=== PATIENT | male | born 1970 | race Caucasian/White ===

== ENCOUNTER 2020-09-08 19:56 | Inpatient (IN) ==
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
[2020-09-08] MEDS ORDERED: 0.9 % SODIUM CHLORIDE 1,000 ML IV ONE (20:33)
[2020-09-08] MEDS ORDERED: VANCOMYCIN 1,000 MG in 0.9 % SODIUM CHLORIDE 250 ML IV ONE (20:33)
[2020-09-08] MEDS ORDERED: cefTRIAXone 2 GM in DEXTROSE 5% IN WATER 50 ML IV ONE (21:03)
[2020-09-08 21:24] LABS: POC Creatinine 0.6 mg/dL (0.6-1.2)
[2020-09-08 22:00] LABS: Basophils # (Auto) 0.04 K/mcL (0.00-0.20); Basophils % (Auto) 0.3 % (0.0-2.0); Eosinophils # (Auto) 0.05 K/mcL (0.00-0.70); Eosinophils % (Auto) 0.4 % (0.0-7.0); Hematocrit 39.1 % (41.0-55.0); Hemoglobin 12.7 g/dL (13.5-16.5); Lymphocytes # (Auto) 1.77 K/mcL (1.50-4.80); Lymphocytes % (Auto) 12.4 % (15.0-49.0); Mean Cell Volume 93.8 fL (80.0-100.0); Mean Corpuscular HGB Conc 32.5 g/dL (31.0-36.0); Mean Platelet Volume 9.6 fL (7.4-10.4); Monocytes # (Auto) 0.77 K/mcL (0.10-0.90); Monocytes % (Auto) 5.4 % (1.0-12.0); Neutrophils % (Auto) 81.5 % (38.0-78.0); Platelet Count 292 K/mcL (140-440); RBC 4.17 M/mcL (4.50-5.90); Red Cell Distribution Width 15.2 % (11.5-14.5); WBC 14.3 K/mcL (4.5-11.0)
[2020-09-08 22:23] LABS: ALT/SGPT 17 U/L (<40); AST/SGOT 16 U/L (<40); Albumin 2.8 gm/dL (3.2-5.2); Albumin/Globulin Ratio 0.6 (1.0-2.3); Alkaline Phosphatase 162 U/L (39-117); Bilirubin,Total < 0.2 mg/dL (0.1-1.0); Blood Urea Nitrogen 15 mg/dL (6-20); Calcium 8.7 mg/dL (8.6-10.4); Carbon Dioxide 23 mmol/L (22-30); Chloride 99 mmol/L (96-108); Globulin 4.5 gm/dL (2.2-3.7); Glomerular Filtration Rate 110; Glucose 157 mg/dL (70-105)
[2020-09-08] MEDS ORDERED: ONDANSETRON 4 MG/2 ML VIAL IV PRN (22:51)
[2020-09-08] MEDS ORDERED: OXYBUTYNIN CHLORIDE 5 MG TABLET PO ONE (23:06)
[2020-09-08] MEDS ORDERED: BACLOFEN 10 MG TABLET PO ONE (23:06)
[2020-09-08] MEDS ORDERED: tiZANidine 4 MG TABLET PO ONE (23:07)
[2020-09-09] MEDS: 0.9 % SODIUM CHLORIDE 1,000 ML IV SCH ×2 (00:45→08:55)
[2020-09-09] MEDS: morphine 4 MG/ML VIAL IV PRN ×2 (04:09→08:56)
[2020-09-09] MEDS: 0.9 % SODIUM CHLORIDE 10 ML SYRINGE IV SCH ×5 (04:52→22:37)
--- NOTE | 2020-09-09 05:49 | Cat Scan Report ---
INDICATION: right gluteal and perineal abscess. Previous left nephrectomy in July, COMPARISON: Preoperative CT scan dated 06/16/2020 TECHNIQUE: Axial images were obtained through the abdomen and pelvis. Sagittally and coronally reformatted images. FINDINGS: Lung bases:There is dependent parenchymal density consistent with atelectasis. No discrete mass. No pleural fluid. No pericardial fluid. Liver:Negative to the limits of noncontrast enhanced examination. Liver contour is smooth without evidence for cirrhosis Gallbladder, bilary:No calcified gallstones. No gallbladder wall thickening. No pericholecystic fluid. No dilated bile ducts Spleen:Spleen is borderline enlarged. Spleen measures approximately 12 cm x 10 cm x 13 cm. Pancreas:No pancreatic mass. No peripancreatic abnormality Adrenal glands:Negative Kidneys, ureters, bladder: Previous left nephrectomy. There is no mass or abscess in the surgical bed. Right kidney is negative for limits of noncontrast enhanced examination. No hydronephrosis. No detectable mass. No obstructing or nonobstructing calculi No hydroureter. No ureteral stone There is a Car catheter within the urinary bladder. Bladder wall appears thickened. There is gas within the nondependent portion of the bladder. Blood clot within the bladder or purulent material is possible. Clinical correlation necessary. Gastrointestinal:No significant diverticulosis or evidence for diverticulitis. No detectable colonic mass. There is prominent fecal material within the colon consistent with constipation. No mechanical small bowel obstruction. No small bowel dilatation. Appendix: The appendix is negative Vascular:Mild calcification of the abdominal aorta. No abdominal aortic aneurysm. Lymphatic:No retroperitoneal adenopathy. No significant mesenteric adenopathy. Mesentery, peritoneum:No free intraperitoneal fluid. No intra-abdominal abscess. No pneumoperitoneum Reproductive:Prostate is not significantly enlarged Musculoskeletal:No lumbar compression fractures. No lytic lesions. Sacrum, pelvis, hips are negative. Patient has undergone previous open reduction and internal fixation of right hip fracture. No anterior abdominal wall or inguinal hernia There is soft tissue abnormality in the right gluteal region extending to the perineum. There is density in the subcutaneous fat. No gas bubbles to suggest Bonnie's gangrene. Appearance is consistent with probable phlegmon. There are no gas bubbles or well-defined low density to indicate mature abscess. This extends deep to the issue him. There is no evidence for osteomyelitis. This examination was initially interpreted by [facility] IMPRESSION: 1. Previous left nephrectomy 2. Car catheter within the urinary bladder. There are gas bubbles within appearance suggesting intravesical hematoma or purulence 3. Probable constipation 4. Subcutaneous soft tissue abnormality in the right gluteal region extending to the perineum. Findings are most consistent with phlegmon or maturing abscess. No well delineated abscess. No gas bubbles. The exam was performed using radiation dose optimization techniques including, but not limited to, automated exposure control, adjustment of the mA and/or kV according to patient size and use of iterative reconstruction technique. Interpreted and Authenticated by: Jesus Espinal 09/09/20
[2020-09-09] MEDS ORDERED: VANCOMYCIN PER PHARMACY IV SCH (07:06)
[2020-09-09] MEDS: VANCOMYCIN 1,500 MG in 0.9 % SODIUM CHLORIDE 500 ML IV SCH ×2 (08:55→22:08)
[2020-09-09] MEDS ORDERED: DOCUSATE SODIUM 100 MG CAPSULE PO SCH (09:00)
[2020-09-09] MEDS ORDERED: ONDANSETRON 4 MG/2 ML VIAL IV PRN (10:01)
[2020-09-09] MEDS ORDERED: morphine 4 MG/ML VIAL IV PRN (10:01)
[2020-09-09] MEDS ORDERED: 0.9 % SODIUM CHLORIDE 1,000 ML IV SCH (10:15)
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
[2020-09-09] MEDS ORDERED: HYDROmorphone 1 MG/ML SYRINGE IV PRN (10:59)
[2020-09-09] MEDS: cefTRIAXone 2 GM in DEXTROSE 5% IN WATER 50 ML IV SCH (13:00)
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
[2020-09-09] MEDS ORDERED: tiZANidine 4 MG TABLET PO SCH ×2 (15:00)
[2020-09-09] MEDS ORDERED: oxyCODONE/APAP 10/325MG TABLET PO PRN (16:16)
[2020-09-09] MEDS ORDERED: NALOXONE HCL 0.4 MG/ML VIAL IV PRN (16:17)
[2020-09-09] MEDS ORDERED: LACTULOSE 20 GM/30 ML ORAL.SOL PO PRN (16:19)
--- NOTE | 2020-09-09 16:36 | General Surgery Consult Note ---
HPI Data of Consult Primary Care Provider: Louis Wong Family Provider: Patient seen as 50-year-old quadriplegic with history of ureteral cancer and impacted stent status post left nephro ureterectomy approximately 2 months ago and pulmonary Patient now having evaluation for gluteal abscess and CT demonstrates abnormal cystogram with air noted along with marked bladder wall thickening and neurogenic bladder Consult Narrative Patient Information: Note initiated : 09/09/20 at 4:26 pm Service Date, if different from initiated Date: [] Patient: Zack Cardenas 50 y/o M admitted on 09/08/20 for buttock wound. Chief Complaint: [] Chief complaint: History of ureteral cancer Reason for consult: Abnormal findings on CT cystogram cc:: CC: Zack Machado MD Constitutional Constitutional: Present as per HPI PFSH PFSH All Active Problems (Updated 09/09/20 @ 16:31 by Shakeel Owusu MD) H/O left radical nephrectomy (Acute) Bladder mass (Acute) Transitional cell carcinoma of left ureter (Acute) Neurogenic dysfunction of the urinary bladder (Acute) Quadriplegia and quadriparesis (Acute) Occlusion of ureteral stent (Acute) Dysuria (Acute) Cellulitis (Acute) Decubitus ulcer of ankle, stage 3 (Acute) Abscess and cellulitis of gluteal region (Acute) Medical History (Updated 09/09/20 @ 16:31 by Shakeel Owusu MD) Bladder mass Transitional cell carcinoma of left ureter Surgical History (Updated 09/09/20 @ 16:32 by Shakeel Owusu MD) H/O left radical nephrectomy MEDS/ALLERGIES Home Medications and Allergies Home Medications Medication Instructions Recorded Confirmed Type baclofen 20 mg PO TID 09/22/18 09/09/20 History duloxetine [Cymbalta] 60 mg PO DAILY 09/22/18 09/09/20 History methadone 30 mg PO TID 09/22/18 09/09/20 History oxybutynin chloride 10 mg PO BID 09/22/18 09/09/20 History tizanidine [Zanaflex] 16 mg PO TID 09/22/18 09/09/20 History cefdinir 300 mg PO BID #10 cap 06/10/20 09/09/20 Rx sulfamethoxazole-trimethoprim 1 tab PO BID #10 tab 09/07/20 09/09/20 Rx [Bactrim DS] methadone 50 mg PO HS 09/09/20 09/09/20 History oxycodone-acetaminophen [Percocet] 1 - 1.5 tab PO QID 09/09/20 09/09/20 History oxycodone-acetaminophen [Percocet] 1 tab PO DAILYP PRN 09/09/20 09/09/20 History Allergies Allergy/AdvReac Type Severity Reaction Status Date / Time No Known Drug Allergies Allergy Verified 09/08/20 19:59 Physical Examination Vital Signs Vital signs: Temp Pulse Resp BP Pulse Ox 97.5 F 65 16 164/98 90 09/09/20 12:00 09/09/20 12:00 09/09/20 12:00 09/09/20 12:00 09/09/20 12:00 Genitourinary Genitourinary (Male): Present other (Car catheter in place with old SP tube site) Neurologic Neurologic: Present other (Quadriplegic male in no acute distress-asensate below umbilicus) Results Labs Result diagrams: 09/08/20 20:56 09/08/20 20:56 Labs: Abnormal lab results 09/08/20 09/08/20 Range/Units 20:56 20:56 WBC 14.3 H (4.5-11.0) K/mcL RBC 4.17 L (4.50-5.90) M/mcL Hgb 12.7 L (13.5-16.5) g/dL Hct 39.1 L (41.0-55.0) % RDW 15.2 H (11.5-14.5) % Neut % (Auto) 81.5 H (38.0-78.0) % Lymph % (Auto) 12.4 L (15.0-49.0) % Absolute Neutrophils 11.64 H (1.80-8.00) K/mcL Glucose 157 H (70-105) mg/dL Alkaline Phosphatase 162 H (39-117) U/L Albumin 2.8 L (3.2-5.2) gm/dL Globulin 4.5 H (2.2-3.7) gm/dL Albumin/Globulin Ratio 0.6 L (1.0-2.3) Diabetes panel 09/08/20 Range/Units 20:56 Sodium 136 (133-145) mmol/L Potassium 4.3 (3.3-5.1) mmol/L Chloride 99 (96-108) mmol/L Carbon Dioxide 23 (22-30) mmol/L BUN 15 (6-20) mg/dL Creatinine 0.7 (0.7-1.2) mg/dL Glucose 157 H (70-105) mg/dL Calcium 8.7 (8.6-10.4) mg/dL AST 16 (<40) U/L ALT 17 (<40) U/L Alkaline Phosphatase 162 H (39-117) U/L Total Protein 7.3 (5.9-8.4) gm/dL Albumin 2.8 L (3.2-5.2) gm/dL Calcium panel 09/08/20 Range/Units 20:56 Calcium 8.7 (8.6-10.4) mg/dL Albumin 2.8 L (3.2-5.2) gm/dL Pituitary panel 09/08/20 Range/Units 20:56 Sodium 136 (133-145) mmol/L Potassium 4.3 (3.3-5.1) mmol/L Chloride 99 (96-108) mmol/L Carbon Dioxide 23 (22-30) mmol/L BUN 15 (6-20) mg/dL Creatinine 0.7 (0.7-1.2) mg/dL Glucose 157 H (70-105) mg/dL Calcium 8.7 (8.6-10.4) mg/dL Adrenal panel 09/08/20 Range/Units 20:56 Sodium 136 (133-145) mmol/L Potassium 4.3 (3.3-5.1) mmol/L Chloride 99 (96-108) mmol/L Carbon Dioxide 23 (22-30) mmol/L BUN 15 (6-20) mg/dL Creatinine 0.7 (0.7-1.2) mg/dL Glucose 157 H (70-105) mg/dL Calcium 8.7 (8.6-10.4) mg/dL Total Bilirubin < 0.2 (0.1-1.0) mg/dL AST 16 (<40) U/L ALT 17 (<40) U/L Alkaline Phosphatase 162 H (39-117) U/L Total Protein 7.3 (5.9-8.4) gm/dL Albumin 2.8 L (3.2-5.2) gm/dL All other labs normal. A/P Assessment and plan (1) Neurogenic dysfunction of the urinary bladder: Status: Acute (2) Bladder mass: Status: Acute (3) Transitional cell carcinoma of left ureter: Status: Acute (4) Quadriplegia and quadriparesis: Status: Acute (5) H/O left radical nephrectomy: Status: Acute Narrative A/P Narrative: Assessment: History of ureteral transitional cell carcinoma by report and after recent nephroureterectomy elsewhere. Patient with abnormal cystogram questionably debris versus clot/tumor versus neurogenic bladder with intraluminal air noted Rule out transitional cell carcinoma versus other etiology--urine cytology submitted and pending--urine does not appear with obvious infection presently Gluteal abscess requiring excision tomorrow in the OR Plan: After discussion with Dr. Wong will plan combined procedure to have cystoscopy possible biopsy performed along with gluteal abscess excision tomorrow Patient understands and agrees Time Spent With Patient Time: Total time spent is greater than 50% in coordination of care (as documented) at patient's floor/unit and/or counseling patient:
[2020-09-09] MEDS: BACLOFEN 10 MG TABLET PO SCH ×2 (16:41→22:14)
[2020-09-09] MEDS: HYDROmorphone 1 MG/ML SYRINGE IV PRN (16:43)
[2020-09-09] MEDS: METHADONE 5 MG TABLET PO SCH ×2 (17:53→22:10)
[2020-09-09] MEDS: tiZANidine 4 MG TABLET PO SCH ×2 (17:54→22:13)
[2020-09-09] MEDS ORDERED: SENNOSIDES 1 TABLET PO SCH ×2 (21:00)
[2020-09-09] MEDS: OXYBUTYNIN CHLORIDE 5 MG TAB.XL.24H PO SCH (22:13)
[2020-09-09] MEDS: DOCUSATE SODIUM 100 MG CAPSULE PO SCH (22:13)
[2020-09-10] MEDS: 0.9 % SODIUM CHLORIDE 10 ML SYRINGE IV SCH ×6 (04:13→22:51)
[2020-09-10] MEDS: HYDROmorphone 1 MG/ML SYRINGE IV PRN ×4 (04:20→21:29)
[2020-09-10 06:50] LABS: ALT/SGPT 14 U/L (<40); AST/SGOT 18 U/L (<40); Albumin 2.4 gm/dL (3.2-5.2); Albumin/Globulin Ratio 0.5 (1.0-2.3); Alkaline Phosphatase 152 U/L (39-117); Bilirubin,Direct < 0.2 mg/dL (0-0.3); Bilirubin,Total 0.2 mg/dL (0.1-1.0); Blood Urea Nitrogen 8 mg/dL (6-20); Calcium 9.2 mg/dL (8.6-10.4); Carbon Dioxide 27 mmol/L (22-30); Chloride 106 mmol/L (96-108); Globulin 4.8 gm/dL (2.2-3.7); Glomerular Filtration Rate 117; Glucose 83 mg/dL (70-105); Lactate Dehydrogenase 163 U/L (135-225); Phosphorous 3.1 mg/dL (2.5-4.5); Triglycerides 173 mg/dL (<150); Uric Acid 4.3 mg/dL (2.5-8.0)
[2020-09-10 07:26] LABS: Basophils # (Auto) 0.04 K/mcL (0.00-0.20); Basophils % (Auto) 0.4 % (0.0-2.0); Eosinophils # (Auto) 0.19 K/mcL (0.00-0.70); Hematocrit 38.9 % (41.0-55.0); Hemoglobin 12.2 g/dL (13.5-16.5); Lymphocytes # (Auto) 2.54 K/mcL (1.50-4.80); Lymphocytes % (Auto) 26.5 % (15.0-49.0); Mean Cell Volume 94.9 fL (80.0-100.0); Mean Corpuscular HGB Conc 31.4 g/dL (31.0-36.0); Monocytes # (Auto) 0.64 K/mcL (0.10-0.90); Monocytes % (Auto) 6.7 % (1.0-12.0); Neutrophils % (Auto) 64.4 % (38.0-78.0); Platelet Count 301 K/mcL (140-440); Red Cell Distribution Width 15.5 % (11.5-14.5); WBC 9.6 K/mcL (4.5-11.0)
[2020-09-10] MEDS ORDERED: 0.9 % SODIUM CHLORIDE 500 ML IV ONE (07:52)
[2020-09-10] MEDS: cefTRIAXone 2 GM in DEXTROSE 5% IN WATER 50 ML IV SCH (08:55)
[2020-09-10] MEDS: DOCUSATE SODIUM 100 MG CAPSULE PO SCH ×2 (08:56→22:00)
[2020-09-10] MEDS: OXYBUTYNIN CHLORIDE 5 MG TAB.XL.24H PO SCH ×2 (08:56→22:01)
[2020-09-10] MEDS: BACLOFEN 10 MG TABLET PO SCH ×3 (08:57→22:02)
[2020-09-10] MEDS: tiZANidine 4 MG TABLET PO SCH ×3 (08:58→22:01)
[2020-09-10] MEDS ORDERED: METHADONE 5 MG TABLET PO SCH (09:00)
[2020-09-10] MEDS ORDERED: POLYETHYLENE GLYCOL 3350 17 GM PACKET PO SCH (09:00)
[2020-09-10] MEDS ORDERED: IPRATROPIUM/ALBUTEROL 3 ML AMPUL.NEB NEB PRN ×3 (09:00→11:59)
[2020-09-10] MEDS ORDERED: SCOPOLAMINE 1 PATCH PATCH TOPICAL PRN ×2 (09:00→11:59)
[2020-09-10] MEDS ORDERED: DULoxetine 30 MG CAPSULE PO SCH (09:00)
[2020-09-10] MEDS ORDERED: OXYCODONE ACETAMINOPHEN PO SCH (09:00)
[2020-09-10] MEDS ORDERED: MIDAZOLAM 2 MG/2 ML VIAL ONE (10:21)
[2020-09-10] MEDS ORDERED: HYDROmorphone 1 MG/ML SYRINGE ONE (10:21)
[2020-09-10] MEDS ORDERED: ONDANSETRON 4 MG/2 ML VIAL ONE (10:21)
[2020-09-10] MEDS ORDERED: fentaNYL 100 MCG/2 ML VIAL IV ONE (10:21)
[2020-09-10] MEDS ORDERED: GLYCOPYRROLATE 0.2 MG/ML VIAL IV ONE (10:21)
[2020-09-10] MEDS ORDERED: PROPOFOL 200 MG/20 ML VIAL IV ONE (10:21)
[2020-09-10] MEDS ORDERED: KETAMINE 100 MG/ML ML ONE (10:21)
[2020-09-10] MEDS ORDERED: PHENYLEPHRINE 10 MG/ML VIAL ONE (10:21)
[2020-09-10] MEDS ORDERED: LIDOCAINE HCL/PF 100 MG/5 ML SYRINGE IV ONE (10:21)
--- NOTE | 2020-09-10 10:41 | Internal Med Progress Note ---
SUBJECTIVE Subjective Patient information: Note initiated : 09/10/20 at 10:27 am Service Date, if different from initiated Date: [] Patient: Zack Cardenas a 50 y/o M admitted on 09/08/20 for buttock wound. Chief Complaint: [] Interval history: Mr. Cardenas is a 50 year old male with a history of partial quadriplegia following an injury many years ago, neurogenic bladder requiring self-catheterization, history of recent left nephrectomy July 2020, recurrent soft tissue infections, recently started on Bactrim for UTI, who presented to the emergency department for right gluteal cellulitis. Further work-up in the ED included a CT abdomen pelvis without contrast revealed subcutaneous soft tissue abnormality in the right gluteal region extending to the perineum most consistent with phlegmon or maturing abscess. Patient was admitted for antibiotics and surgery consultation. 07/12 Surgery planning on I&D today, urology consulting and planning for cystoscopy in OR to evaluate CT findings in bladder. Increased Methadone to TID plus HS prn dosing. Changed code status to DNR per patient's request. Continuos on Vancomycin IV per Rx and Ceftriaxone. Constitutional Vitals: Vital Signs Temp Pulse Resp BP Pulse Ox 98.5 F 74 18 129/82 92 09/10/20 07:51 09/10/20 07:51 09/10/20 07:51 09/10/20 07:51 09/10/20 07:51 Period Temp Pulse Resp BP Sys/Parks Pulse Ox Last 24 Hr 97.3 F-98.7 F 65-80 12-18 120-164/76-98 90-92 Intake and Output 09/09/20 09/10/20 09/10/20 21:59 05:59 13:59 Intake Total 910 1500 550 Output Total 1250 1875 Balance -340 -375 550 Weight 80.785 kg Intake & Output: Intake & Output 09/09/20 09/10/20 09/10/20 21:59 05:59 13:59 Intake Total 910 1500 550 Output Total 1250 1875 Balance -340 -375 550 Weight 80.785 kg Intake: IV 1500 550 Sodium Chloride 0.9% 1,000 ml @ 1000 75 mls/hr IV .[id number] [facility] Rx#: [id number] Sodium Chloride 0.9% 500 ml @ 500 Wide Open IV [facility] Rx#: [id number] Vancomycin 1,500 mg In Sodium 500 Chloride 0.9% 500 ml @ 333.3 mls/hr IV Q12H [facility] Rx#: [id number] Rocephin 2 gm In Dextrose 5% in 50 Water 50 ml @ 100 mls/hr IV Q24H [facility] Rx#:[id number] Oral 910 0 Output: Urine Catheter Amount 1250 1875 Other: Meal Dinner Percent of Meal Consumed 50% Feeding Ability Assist with Tray Set Up Urine Appearance Clear Sediment Uretheral (Car) Clear Clear Urine Color Bright Yellow Bright Yellow Uretheral (Car) Straw Bright Yellow Urine Odor Normal Uretheral (Car) Normal Additional findings Additional findings: Head: Atraumatic, normal inspection. Eyes: normal appearance, no scleral icterus. Neck: full ROM Respiratory: no respiratory distress. Cardiovascular: normal rate and rhythm, S1, S2. GI/Abdominal: soft, nontender, no guarding. Extremities: muscle atrophy in all extremities Neurological: CN II-XII intact, limited motor in bilateral upper extremities, none in lower extremities, patchy sensation preserved throughout. Psychiatric: normal mood. Skin: gluteal redness, wound present OBJ DATA Labs CBC & Chem 7: 09/10/20 06:48 09/10/20 05:30 Labs: Abnormal Lab Results 09/10/20 09/10/20 09/10/20 06:48 06:48 05:30 WBC RBC 4.10 L Hgb 12.2 L Hct 38.9 L RDW 15.5 H Neut % (Auto) Lymph % (Auto) Absolute Neutrophils Anion Gap 7.0 L Creatinine 0.6 L Glucose Alkaline Phosphatase 152 H C-Reactive Protein 17.10 H Albumin 2.4 L Globulin 4.8 H Albumin/Globulin Ratio 0.5 L Triglycerides 173 H Vancomycin Trough 23.4 H* 09/08/20 09/08/20 20:56 20:56 WBC 14.3 H RBC 4.17 L Hgb 12.7 L Hct 39.1 L RDW 15.2 H Neut % (Auto) 81.5 H Lymph % (Auto) 12.4 L Absolute Neutrophils 11.64 H Anion Gap Creatinine Glucose 157 H Alkaline Phosphatase 162 H C-Reactive Protein Albumin 2.8 L Globulin 4.5 H Albumin/Globulin Ratio 0.6 L Triglycerides Vancomycin Trough Meds: Medications Albuterol/Ipratropium (Ipratropium/Albuterol 3 Ml Ampul.Neb) 3 ml NEB ONCE PRN PRN Reason: Shortness Of Breath Stop: 09/10/20 15:00 Baclofen (Baclofen 10 Mg Tablet) 20 mg PO TID [facility] Last Admin: 09/10/20 08:57 Dose: Not Given Documented by: Docusate Sodium (Docusate Sodium 100 Mg Capsule) 100 mg PO BID [facility] Last Admin: 09/10/20 08:56 Dose: Not Given Documented by: Duloxetine HCl (Duloxetine 30 Mg Capsule) 60 mg PO DAILY [facility] Last Admin: 09/10/20 08:56 Dose: Not Given Documented by: Hydromorphone HCl (Hydromorphone 1 Mg/Ml Syringe) 0.5 mg IV Q4HP PRN; Protocol PRN Reason: Per Pain Protocol Last Admin: 09/10/20 08:03 Dose: 0.5 mg Documented by: Ceftriaxone Sodium 2 gm/ (Dextrose) 50 mls @ 100 mls/hr IV Q24H [facility]; Protocol Last Infusion: 09/10/20 09:30 Dose: Infused Documented by: Lactulose (Lactulose 20 Gm/30 Ml Oral.Linda) 10 gm PO DAILYP PRN PRN Reason: Constipation Methadone HCl (Methadone 5 Mg Tablet) 30 mg PO HSP PRN PRN Reason: Pain Level > 5 Methadone HCl (Methadone 5 Mg Tablet) 30 mg PO TID@0900,1400,1900 [facility] Last Admin: 09/10/20 08:57 Dose: Not Given Documented by: Naloxone HCl (Naloxone Hcl 0.4 Mg/Ml Vial) 0.2 mg IV Q5M PRN PRN Reason: Opiate Reversal Ondansetron HCl (Ondansetron 4 Mg/2 Ml Vial) 4 mg IV Q6HP PRN PRN Reason: Nausea And Vomiting Last Admin: 09/09/20 16:42 Dose: 4 mg Documented by: Oxybutynin Chloride (Oxybutynin Chloride 5 Mg Tab.Xl.24h) 10 mg PO BID [facility] Last Admin: 09/10/20 08:56 Dose: Not Given Documented by: Oxycodone/Acetaminophen (Oxycodone/Apap 10/325mg Tablet) 1 tab PO Q6HP PRN; Protocol PRN Reason: Per Pain Protocol Last Admin: 09/09/20 23:41 Dose: 1 tab Documented by: Polyethylene Glycol (Polyethylene Glycol 3350 17 Gm Packet) 17 gm PO DAILY [facility] Last Admin: 09/10/20 08:58 Dose: Not Given Documented by: Scopolamine (Scopolamine 1 Patch Patch) 1 patch TOPICAL PREOP PRN PRN Reason: Nausea And Vomiting Senna (Sennosides 1 Tablet) 2 tab PO HS [facility] Last Admin: 09/09/20 22:14 Dose: 2 tab Documented by: Sodium Chloride (0.9 % Sodium Chloride 10 Ml Syringe) 10 ml IV Q8 [facility] Last Admin: 09/10/20 04:13 Dose: Not Given Documented by: Sodium Chloride (0.9 % Sodium Chloride 10 Ml Syringe) 10 ml IV Q8 [facility] Last Admin: 09/10/20 04:29 Dose: 10 ml Documented by: Tizanidine HCl (Tizanidine 4 Mg Tablet) 8 mg PO TID [facility] Last Admin: 09/10/20 08:58 Dose: Not Given Documented by: Vancomycin HCl (Vancomycin Per Pharmacy) 1 order IV UD [facility]; Protocol A/P Narrative A/P Narrative: Assessment: 50-year-old male with partial quadriplegia (per patient this was 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 #Right gluteal phlegmon versus abscess #Right gluteal cellulitis #Bladder air and debris vs possible clot/mass #Partial quadriplegia: lives at home, parents are his caregivers #Neurogenic bladder: self catheterizes at home #Recent UTI: previously on Bactrim #Chronic pain w/ opioid dependence: on high dose methadone at home #Pressure injury on the right knee: present on admission, from wheelchair #Hx of left ureteral transitional cell carcinoma: s/p nephroureterectomy July 2020 #Constipation Plan -Vancomycin IV per pharmacy and ceftriaxone for now, deescalate after surgery. Not sure if MRSA coverage is necessary. -Following all cultures. -IV fluids while n.p.o. -analgesics prn. -Continue duloxetine, baclofen, tizanidine, methadone (reduced from home dose), Percocet. -Surgery following-surgery today. -Urology following-cystoscopy today. -N.p.o. for surgery -bowel regimen -Observation status for now per utilization review recommendation. -DVT PPx: SCDs until ok with surgery to start lovenox. -CODE STATUS: DNR per patient's request. -Disposition: TBD Time Spent With Patient Time: Total time spent is greater than 50% in coordination of care (as documented) at patient's floor/unit and/or counseling patient: QUALITY Stroke Symptom Onset Unknown: No VTE Deep Vein Thrombosis/Pulmonary Embolism Present on Admission: No
--- NOTE | 2020-09-10 11:00 | Operative Note ---
Operative Note Operative Note: Operation report--date of service 10 September 2020 Preop diagnosis: Abnormal cystogram with history of ureteral cancer Postop diagnosis: No evidence transitional cell carcinoma-findings consistent with neurogenic bladder Operation performed: Cystoscopy and aspiration cytology Surgeon: Dr. Joby Owusu Anesthesia: Dr. Tye pelaez General Complications: None Drains: Coud 16 Swazi Car catheter to straight drainage Additional comments: Procedure performed in conjunction with Dr. Abbe Wong Description: After undergoing general anesthesia and timeout patient was prepped and draped in the dorsolithotomy position Car catheter removed and cystoscopy carried out with video assistance. No urethral anomalies were noted but some BPH changes noted consistent with trilobar hypertrophy. Bladder showed marked trabeculation consistent with his known neurogenic bladder and resection of the left ureteral orifice consistent with his recent nephro ureterectomy noted to be healing nicely. Patient had normal-appearing right ureteral orifice with clear reflux of urine. Cellule formation without other papillary lesions noted. Patient was returned to recovery area in stable condition having tolerated procedure well after placement of a 16 Swazi coud catheter
--- NOTE | 2020-09-10 11:06 | Brief Operative Note ---
Brief Operative Note Date of procedure: 09/10/20 Pre-op diagnosis: right gluteal abscess Post-op diagnosis: other (right gluteal abscess) Procedure: excisional debridement and drainage of right gluteal abscess Grafts/Implants: No Anesthesia: GETA Findings: large abscess cavity with extension to ramus of right ischium with necrosis of subcutaneous tissue,muscle and fascia Complications: none Surgeon: Mona Wong Estimated blood loss (cc): 20 Specimens Removed/Pathology: other (fluid for culture) Condition: stable Disposition: PACU
[2020-09-10] MEDS ORDERED: fentaNYL 100 MCG/2 ML VIAL IV PRN (11:08)
[2020-09-10] MEDS: LABETALOL 5 MG/ML ML IV PRN ×3 (11:34→12:05)
[2020-09-10] MEDS ORDERED: LABETALOL 5 MG/ML ML IV ONE (11:50)
[2020-09-10] MEDS ORDERED: ONDANSETRON 4 MG/2 ML VIAL IV PRN (11:59)
[2020-09-10] MEDS ORDERED: LACTULOSE 20 GM/30 ML ORAL.SOL PO PRN (11:59)
[2020-09-10] MEDS ORDERED: NALOXONE HCL 0.4 MG/ML VIAL IV PRN (11:59)
[2020-09-10] MEDS ORDERED: VANCOMYCIN PER PHARMACY IV SCH (11:59)
[2020-09-10] MEDS: METHADONE 5 MG TABLET PO SCH ×2 (14:37→18:45)
[2020-09-10] MEDS: oxyCODONE/APAP 10/325MG TABLET PO PRN (14:38)
[2020-09-10] MEDS: BISACODYL 10 MG SUPP.RECT PR SCH ×2 (18:45→18:54)
[2020-09-10] MEDS: SENNOSIDES 1 TABLET PO SCH (22:02)
[2020-09-10] MEDS ORDERED: METHADONE 5 MG TABLET PO ONE (22:15)
[2020-09-10] MEDS: METHADONE 5 MG TABLET PO PRN (22:35)
[2020-09-10] MEDS ORDERED: METHADONE 5 MG TABLET PO PRN (23:00)
[2020-09-11] MEDS: 0.9 % SODIUM CHLORIDE 10 ML SYRINGE IV SCH ×6 (04:59→21:40)
[2020-09-11] MEDS: oxyCODONE/APAP 10/325MG TABLET PO PRN (05:00)
--- NOTE | 2020-09-11 05:52 | Internal Med Progress Note ---
SUBJECTIVE Subjective Patient information: Note initiated : 09/11/20 at 5:47 am Service Date, if different from initiated Date: [] Patient: Zack Cardenas a 50 y/o M admitted on 09/08/20 for buttock wound. Chief Complaint: [] Interval history: Mr. Cardenas is a 50 year old male with a history of partial quadriplegia following an injury many years ago, neurogenic bladder requiring self-catheterization, history of recent left nephrectomy July 2020, recurrent soft tissue infections, recently started on Bactrim for UTI, who presented to the emergency department for right gluteal cellulitis. Further work-up in the ED included a CT abdomen pelvis without contrast revealed subcutaneous soft tissue abnormality in the right gluteal region extending to the perineum most consistent with phlegmon or maturing abscess. Patient was admitted for antibiotics and surgery consultation. 09/10 Surgery planning on I&D today, urology consulting and planning for cystoscopy in OR to evaluate CT findings in bladder. Increased Methadone to TID plus HS prn dosing. Changed code status to DNR per patient's request. Continuos on Vancomycin IV per Rx and Ceftriaxone. 09/11 Large gluteal abscess with extension to ramus seen during surgery yesterday. Discussed findings with surgery and no clear evidence of clinical osteomyelitis. No unexpected cystoscopy findings per urology. Vancomycin trough elevated. Wound care surgery consulted. Call out to Norman regarding possible osteomyelitis. Constitutional Vitals: Vital Signs Temp Pulse Resp BP Pulse Ox 98.2 F 56 L 16 104/62 90 09/11/20 03:04 09/11/20 03:04 09/11/20 03:04 09/11/20 03:04 09/11/20 03:04 Period Temp Pulse Resp BP Sys/Parks Pulse Ox Last 24 Hr 97.6 F-98.5 F 56-78 10-18 104-197/62-113 90-94 Intake and Output 09/10/20 09/10/20 09/11/20 13:59 21:59 05:59 Intake Total 1550 960 600 Output Total 8281 247 3449 Balance -50 510 -1175 Weight 80.331 kg Patient Weight 09/11/20 05:59 Weight 80.331 kg Intake & Output: Intake & Output 09/10/20 09/10/20 09/11/20 13:59 21:59 05:59 Intake Total 1550 960 600 Output Total 6455 530 6076 Balance -50 510 -1175 Weight 80.331 kg Intake: IV 550 Sodium Chloride 0.9% 500 ml @ 500 Wide Open IV BOLUS ONE Rx#: [id number] Rocephin 2 gm In Dextrose 5% in 50 Water 50 ml @ 100 mls/hr IV Q24H [facility] Rx#:[id number] Oral 960 600 IV - Manual Only 1000 Output: Urine Catheter Amount 0389 171 0434 Other: Meal Dinner Percent of Meal Consumed 75% Feeding Ability Assist with Tray Set Up Urine Appearance Clear Clear Clear Uretheral (Lehman) Clear Clear Urine Color Pale Bright Yellow Bright Yellow Uretheral (Lehman) Bright Yellow Bright Yellow Stool Size Small Small Stool Color Brown Green Green Stool Consistency Soft Liquid Formed Watery # of times incontinent of 1 Bowels Additional findings Additional findings: Head: Atraumatic, normal inspection. Eyes: normal appearance, no scleral icterus. Neck: full ROM Respiratory: no respiratory distress. Cardiovascular: normal rate and rhythm, S1, S2. GI/Abdominal: soft, nontender, no guarding, lehman catheter present Extremities: muscle atrophy in all extremities, gluteal surgical incision packed with gauze. Neurological: CN II-XII intact, limited motor in bilateral upper extremities, none in lower extremities, patchy sensation preserved throughout. Psychiatric: normal mood. Skin: gluteal redness, wound present OBJ DATA Labs CBC & Chem 7: 09/11/20 05:55 09/11/20 05:55 Labs: Abnormal Lab Results 09/10/20 09/10/20 09/10/20 06:48 06:48 05:30 WBC RBC 4.10 L Hgb 12.2 L Hct 38.9 L RDW 15.5 H Neut % (Auto) Lymph % (Auto) Absolute Neutrophils Anion Gap 7.0 L Creatinine 0.6 L Glucose Alkaline Phosphatase 152 H C-Reactive Protein 17.10 H Albumin 2.4 L Globulin 4.8 H Albumin/Globulin Ratio 0.5 L Triglycerides 173 H Vancomycin Trough 23.4 H* 09/08/20 09/08/20 20:56 20:56 WBC 14.3 H RBC 4.17 L Hgb 12.7 L Hct 39.1 L RDW 15.2 H Neut % (Auto) 81.5 H Lymph % (Auto) 12.4 L Absolute Neutrophils 11.64 H Anion Gap Creatinine Glucose 157 H Alkaline Phosphatase 162 H C-Reactive Protein Albumin 2.8 L Globulin 4.5 H Albumin/Globulin Ratio 0.6 L Triglycerides Vancomycin Trough Meds: Medications Baclofen (Baclofen 10 Mg Tablet) 20 mg PO TID [facility] Last Admin: 09/10/20 22:02 Dose: 20 mg Documented by: Bisacodyl (Bisacodyl 10 Mg Supp.Rect) 10 mg SD Q48H [facility] Last Admin: 09/10/20 18:54 Dose: Not Given Documented by: Docusate Sodium (Docusate Sodium 100 Mg Capsule) 100 mg PO BID [facility] Last Admin: 09/10/20 22:00 Dose: 100 mg Documented by: Duloxetine HCl (Duloxetine 30 Mg Capsule) 60 mg PO DAILY [facility] Hydromorphone HCl (Hydromorphone 1 Mg/Ml Syringe) 0.5 mg IV Q4HP PRN; Protocol PRN Reason: Per Pain Protocol Last Admin: 09/10/20 21:29 Dose: 0.5 mg Documented by: Ceftriaxone Sodium 2 gm/ (Dextrose) 50 mls @ 100 mls/hr IV DAILY [facility]; Protocol Lactulose (Lactulose 20 Gm/30 Ml Oral.Linda) 10 gm PO DAILYP PRN PRN Reason: Constipation Methadone HCl (Methadone 5 Mg Tablet) 30 mg PO TID@0900,1400,1900 [facility] Last Admin: 09/10/20 18:45 Dose: 30 mg Documented by: Methadone HCl (Methadone 5 Mg Tablet) 30 mg PO HSP PRN PRN Reason: Pain Level > 5 Last Admin: 09/10/20 22:35 Dose: 25 mg Documented by: Naloxone HCl (Naloxone Hcl 0.4 Mg/Ml Vial) 0.2 mg IV Q5M PRN PRN Reason: Opiate Reversal Ondansetron HCl (Ondansetron 4 Mg/2 Ml Vial) 4 mg IV Q6HP PRN PRN Reason: Nausea And Vomiting Oxybutynin Chloride (Oxybutynin Chloride 5 Mg Tab.Xl.24h) 10 mg PO BID [facility] Last Admin: 09/10/20 22:01 Dose: 10 mg Documented by: Oxycodone/Acetaminophen (Oxycodone/Apap 10/325mg Tablet) 1 tab PO Q6HP PRN; Protocol PRN Reason: Per Pain Protocol Last Admin: 09/11/20 05:00 Dose: 1 tab Documented by: Polyethylene Glycol (Polyethylene Glycol 3350 17 Gm Packet) 17 gm PO DAILY NELI Senna (Sennosides 1 Tablet) 2 tab PO HS [facility] Last Admin: 09/10/20 22:02 Dose: 2 tab Documented by: Sodium Chloride (0.9 % Sodium Chloride 10 Ml Syringe) 10 ml IV Q8 [facility] Last Admin: 09/11/20 04:59 Dose: 10 ml Documented by: Sodium Chloride (0.9 % Sodium Chloride 10 Ml Syringe) 10 ml IV Q8 [facility] Last Admin: 09/11/20 05:01 Dose: Not Given Documented by: Tizanidine HCl (Tizanidine 4 Mg Tablet) 8 mg PO TID [facility] Last Admin: 09/10/20 22:01 Dose: 8 mg Documented by: Vancomycin HCl (Vancomycin Per Pharmacy) 1 order IV UD [facility]; Protocol A/P Narrative A/P Narrative: Assessment: 50-year-old male with partial quadriplegia (per patient this 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 Urology was consulted for CT findings concerning for possible hematoma vs purulence in the bladder, cystoscopy was done and did not show anything unexpected given recent surgery and neurogenic bladder. General surgery found a large abscess cavity with extension to the ramus of the right ischium with necrosis of subcutaneous soft tissue. This is complex wound that will require a long time for healing. Concern for possible osteomyelitis given visualized bone during surgical exploration. #Large gluteal abscess w/ soft tissue necrosis extending to right ischial ramus (s/p I&D 09/10) #Concern for possible osteomyelitis of right ischial ramus #Partial quadriplegia: lives at home, parents are his caregivers #Neurogenic bladder: self catheterizes at home #Recent UTI: treated with Bactrim #Chronic pain w/ opioid dependence: on high dose methadone at home #Hx of left ureteral transitional cell carcinoma: s/p nephroureterectomy July 2020 #Pressure injury on the right knee: present on admission, from wheelchair #Constipation Plan -Vancomycin IV per pharmacy and ceftriaxone for now. -General surgery following. -Wound care surgery. -Awaiting call back form ID (Dr. Rodriguez) to discuss surgery report of visualized ramus (?osteomyelitis?) -Following surgical cultures. -Analgesics prn. -Continue duloxetine, baclofen, tizanidine, methadone (reduced from home dose), Percocet. -Bowel regimen -Remove lehman catheter when able. -DVT PPx: SCDs until ok with surgery to start lovenox. -CODE STATUS: DNR per patient's request. -Disposition: TBD Time Spent With Patient Time: Total time spent is greater than 50% in coordination of care (as documented) at patient's floor/unit and/or counseling patient: QUALITY Stroke Symptom Onset Unknown: No VTE Deep Vein Thrombosis/Pulmonary Embolism Present on Admission: No
[2020-09-11 06:58] LABS: Hematocrit 37.4 % (41.0-55.0); Hemoglobin 11.9 g/dL (13.5-16.5); Mean Cell Volume 94.2 fL (80.0-100.0); Mean Corpuscular HGB Conc 31.8 g/dL (31.0-36.0); Platelet Count 317 K/mcL (140-440); RBC 3.97 M/mcL (4.50-5.90); Red Cell Distribution Width 15.3 % (11.5-14.5); WBC 8.4 K/mcL (4.5-11.0)
[2020-09-11 07:29] LABS: ALT/SGPT 13 U/L (<40); AST/SGOT 12 U/L (<40); Albumin 2.4 gm/dL (3.2-5.2); Albumin/Globulin Ratio 0.6 (1.0-2.3); Alkaline Phosphatase 127 U/L (39-117); Bilirubin,Direct < 0.2 mg/dL (0-0.3); Bilirubin,Total < 0.2 mg/dL (0.1-1.0); Blood Urea Nitrogen 8 mg/dL (6-20); Calcium 8.9 mg/dL (8.6-10.4); Carbon Dioxide 28 mmol/L (22-30); Chloride 103 mmol/L (96-108); Globulin 4.2 gm/dL (2.2-3.7); Glomerular Filtration Rate 126; Glucose 147 mg/dL (70-105); Lactate Dehydrogenase 142 U/L (135-225); Phosphorous 2.3 mg/dL (2.5-4.5); Triglycerides 117 mg/dL (<150); Uric Acid 3.9 mg/dL (2.5-8.0)
[2020-09-11 07:30] LABS: Vancomycin,Random 6.5 ug/mL
[2020-09-11] MEDS ORDERED: cefTRIAXone 2 GM VIAL ONE (08:17)
[2020-09-11] MEDS: POLYETHYLENE GLYCOL 3350 17 GM PACKET PO SCH (08:22)
[2020-09-11] MEDS: METHADONE 5 MG TABLET PO SCH ×3 (08:22→19:42)
[2020-09-11] MEDS: OXYBUTYNIN CHLORIDE 5 MG TAB.XL.24H PO SCH ×2 (08:23→21:33)
[2020-09-11] MEDS: DULoxetine 30 MG CAPSULE PO SCH (08:23)
[2020-09-11] MEDS: tiZANidine 4 MG TABLET PO SCH ×3 (08:24→21:34)
[2020-09-11] MEDS: BACLOFEN 10 MG TABLET PO SCH ×3 (08:24→21:33)
[2020-09-11] MEDS: HYDROmorphone 1 MG/ML SYRINGE IV PRN ×3 (08:33→18:47)
[2020-09-11] MEDS: DOCUSATE SODIUM 100 MG CAPSULE PO SCH ×2 (08:37→21:34)
[2020-09-11] MEDS: METHADONE 5 MG TABLET PO PRN ×2 (08:37→22:57)
[2020-09-11 09:06] LABS: Lymphocytes % 25 % (15-49); Monocytes % (Manual) 7 % (1-12); Myelocytes % 1 %; Platelet Estimate NORMAL (Normal); RBC Morphology NORMAL (Normal); Segmented Neutrophils % 67 % (38-78)
--- NOTE | 2020-09-11 10:08 | General Surgery Progress Note ---
SUBJECTIVE Subjective Patient information: Note initiated : 09/11/20 at 10:06 am Service Date, if different from initiated Date: [] Patient: Zack Cardenas 50 y/o M admitted on 09/08/20 for buttock wound. Chief Complaint: [] Interval history: Patient doing well and cath remains clear Constitutional Vitals: Vital Signs Temp Pulse Resp BP Pulse Ox 98.4 F 60 16 143/89 91 09/11/20 08:00 09/11/20 08:00 09/11/20 08:00 09/11/20 08:00 09/11/20 08:00 Period Temp Pulse Resp BP Sys/Parks Pulse Ox Last 24 Hr 97.6 F-98.4 F 56-78 10-18 104-197/62-113 90-94 Intake and Output 09/10/20 09/11/20 09/11/20 21:59 05:59 13:59 Intake Total 960 600 Output Total 450 1775 Balance 510 -1175 Weight 177 lb 1.6 oz Intake & Output: Intake & Output 09/10/20 09/11/20 09/11/20 21:59 05:59 13:59 Intake Total 960 600 Output Total 450 1775 Balance 510 -1175 Weight 177 lb 1.6 oz Intake: Oral 960 600 Output: Urine Catheter Amount 450 1775 Other: Meal Dinner Percent of Meal Consumed 75% Feeding Ability Assist with Tray Set Up Urine Appearance Clear Clear Uretheral (Car) Clear Urine Color Bright Yellow Bright Yellow Uretheral (Car) Bright Yellow Stool Size Small Small Stool Color Brown Green Green Stool Consistency Soft Liquid Formed Loose # of times incontinent of 1 Bowels Additional findings Additional findings: Patient comfortable and catheter draining well with no new changes stable findings A/P Narrative A/P Narrative: Assessment: Neurogenic bladder with no new findings to continue with the present management as per Dr. Wong for abscess Plan: Continue catheter changes through 3 to 4 weeks Time Spent With Patient Time: Total time spent is greater than 50% in coordination of care (as documented) at patient's floor/unit and/or counseling patient:
[2020-09-11] MEDS: cefTRIAXone 2 GM in DEXTROSE 5% IN WATER 50 ML IV SCH (10:49)
[2020-09-11] MEDS: VANCOMYCIN 1,500 MG in 0.9 % SODIUM CHLORIDE 500 ML IV SCH (10:53)
--- NOTE | 2020-09-11 13:07 | Internal Med Progress Note ---
SUBJECTIVE Subjective Patient information: Note initiated : 09/11/20 at 1:04 pm Service Date, if different from initiated Date: [] Patient: Zack Cardenas a 50 y/o M admitted on 09/10/20 for buttock wound. Chief Complaint: [] Interval history: Mr. Cardenas is a 50 year old male with a history of partial quadriplegia following an injury many years ago, neurogenic bladder requiring self-catheterization, history of recent left nephrectomy July 2020, recurrent soft tissue infections, recently started on Bactrim for UTI, who presented to the emergency department for right gluteal cellulitis. Further work-up in the ED included a CT abdomen pelvis without contrast revealed subcutaneous soft tissue abnormality in the right gluteal region extending to the perineum most consistent with phlegmon or maturing abscess. Patient was admitted for antibiotics and surgery consultation. 09/10 Surgery planning on I&D today, urology consulting and planning for cystoscopy in OR to evaluate CT findings in bladder. Increased Methadone to TID plus HS prn dosing. Changed code status to DNR per patient's request. Continuos on Vancomycin IV per Rx and Ceftriaxone. 09/11 Large gluteal abscess with extension to ramus seen during surgery yesterday. Discussed findings with surgery and no clear evidence of clinical osteomyelitis. No unexpected cystoscopy findings per urology. Vancomycin trough elevated. Wound care surgery consulted. Call out to Norman regarding possible osteomyelitis. Constitutional Vitals: Vital Signs Temp Pulse Resp BP Pulse Ox 98.4 F 60 16 143/89 91 09/11/20 08:00 09/11/20 08:00 09/11/20 08:00 09/11/20 08:00 09/11/20 08:00 Period Temp Pulse Resp BP Sys/Parks Pulse Ox Last 24 Hr 97.9 F-98.4 F 56-78 16-18 104-143/62-90 90-93 Intake and Output 09/10/20 09/11/20 09/11/20 21:59 05:59 13:59 Intake Total 960 600 Output Total 450 1775 Balance 510 -1175 Weight 80.331 kg Intake & Output: Intake & Output 09/10/20 09/11/20 09/11/20 21:59 05:59 13:59 Intake Total 960 600 Output Total 450 1775 Balance 510 -1175 Weight 80.331 kg Intake: Oral 960 600 Output: Urine Catheter Amount 450 1775 Other: Meal Dinner Percent of Meal Consumed 75% Feeding Ability Assist with Tray Set Up Urine Appearance Clear Clear Uretheral (Lehman) Clear Urine Color Bright Yellow Bright Yellow Uretheral (Lehman) Bright Yellow Stool Size Small Small Stool Color Brown Green Green Stool Consistency Soft Liquid Formed Loose # of times incontinent of 1 Bowels Exam: General: Alert, Awake, No acute Distress Eyes/N/T: EOMI, Head/Neck: neck supple, CV: RRR, No murmurs, Pulm: Clear b/l, no wheezing/rhonchi/rales Abd: soft, nontender, +BS x4 Ext: no clubbing/cyanosis/edema, gluteal surgical dressing in place Neuro: Alert, no focal deficits, moves all extremities, Skin: warm/dry OBJ DATA Labs CBC & Chem 7: 09/11/20 05:55 09/11/20 05:55 Labs: Abnormal Lab Results 09/11/20 09/11/20 09/10/20 05:55 05:55 06:48 WBC RBC 3.97 L 4.10 L Hgb 11.9 L 12.2 L Hct 37.4 L 38.9 L RDW 15.3 H 15.5 H Neut % (Auto) Lymph % (Auto) Absolute Neutrophils Anion Gap Creatinine 0.5 L Glucose 147 H Phosphorus 2.3 L Alkaline Phosphatase 127 H C-Reactive Protein Albumin 2.4 L Globulin 4.2 H Albumin/Globulin Ratio 0.6 L Triglycerides Vancomycin Trough 09/10/20 09/10/20 09/08/20 06:48 05:30 20:56 WBC RBC Hgb Hct RDW Neut % (Auto) Lymph % (Auto) Absolute Neutrophils Anion Gap 7.0 L Creatinine 0.6 L Glucose 157 H Phosphorus Alkaline Phosphatase 152 H 162 H C-Reactive Protein 17.10 H Albumin 2.4 L 2.8 L Globulin 4.8 H 4.5 H Albumin/Globulin Ratio 0.5 L 0.6 L Triglycerides 173 H Vancomycin Trough 23.4 H* 09/08/20 20:56 WBC 14.3 H RBC 4.17 L Hgb 12.7 L Hct 39.1 L RDW 15.2 H Neut % (Auto) 81.5 H Lymph % (Auto) 12.4 L Absolute Neutrophils 11.64 H Anion Gap Creatinine Glucose Phosphorus Alkaline Phosphatase C-Reactive Protein Albumin Globulin Albumin/Globulin Ratio Triglycerides Vancomycin Trough Meds: Medications Baclofen (Baclofen 10 Mg Tablet) 20 mg PO TID [facility] Last Admin: 09/11/20 08:24 Dose: 20 mg Documented by: Bisacodyl (Bisacodyl 10 Mg Supp.Rect) 10 mg OR Q48H [facility] Last Admin: 09/10/20 18:54 Dose: Not Given Documented by: Docusate Sodium (Docusate Sodium 100 Mg Capsule) 100 mg PO BID [facility] Last Admin: 09/11/20 08:37 Dose: 100 mg Documented by: Duloxetine HCl (Duloxetine 30 Mg Capsule) 60 mg PO DAILY [facility] Last Admin: 09/11/20 08:23 Dose: 60 mg Documented by: Hydromorphone HCl (Hydromorphone 1 Mg/Ml Syringe) 0.5 mg IV Q4HP PRN; Protocol PRN Reason: Per Pain Protocol Last Admin: 09/11/20 08:33 Dose: 0.5 mg Documented by: Ceftriaxone Sodium 2 gm/ (Dextrose) 50 mls @ 100 mls/hr IV DAILY [facility]; Protocol Last Admin: 09/11/20 10:49 Dose: Not Given Documented by: Vancomycin HCl 1,500 mg/ (Sodium Chloride) 500 mls @ 333.3 mls/hr IV Q24H [facility] Last Admin: 09/11/20 10:53 Dose: 333.3 mls/hr Documented by: Lactulose (Lactulose 20 Gm/30 Ml Oral.Linda) 10 gm PO DAILYP PRN PRN Reason: Constipation Methadone HCl (Methadone 5 Mg Tablet) 30 mg PO TID@0900,1400,1900 [facility] Last Admin: 09/11/20 08:22 Dose: 30 mg Documented by: Methadone HCl (Methadone 5 Mg Tablet) 30 mg PO HSP PRN PRN Reason: Pain Level > 5 Last Admin: 09/11/20 08:37 Dose: 30 mg Documented by: Naloxone HCl (Naloxone Hcl 0.4 Mg/Ml Vial) 0.2 mg IV Q5M PRN PRN Reason: Opiate Reversal Ondansetron HCl (Ondansetron 4 Mg/2 Ml Vial) 4 mg IV Q6HP PRN PRN Reason: Nausea And Vomiting Oxybutynin Chloride (Oxybutynin Chloride 5 Mg Tab.Xl.24h) 10 mg PO BID [facility] Last Admin: 09/11/20 08:23 Dose: 10 mg Documented by: Oxycodone/Acetaminophen (Oxycodone/Apap 10/325mg Tablet) 1 tab PO Q6HP PRN; Protocol PRN Reason: Per Pain Protocol Last Admin: 09/11/20 05:00 Dose: 1 tab Documented by: Polyethylene Glycol (Polyethylene Glycol 3350 17 Gm Packet) 17 gm PO DAILY [facility] Last Admin: 09/11/20 08:22 Dose: 17 gm Documented by: Senna (Sennosides 1 Tablet) 2 tab PO HS [facility] Last Admin: 09/10/20 22:02 Dose: 2 tab Documented by: Sodium Chloride (0.9 % Sodium Chloride 10 Ml Syringe) 10 ml IV Q8 [facility] Last Admin: 09/11/20 13:02 Dose: 10 ml Documented by: Sodium Chloride (0.9 % Sodium Chloride 10 Ml Syringe) 10 ml IV Q8 [facility] Last Admin: 09/11/20 13:02 Dose: 10 ml Documented by: Tizanidine HCl (Tizanidine 4 Mg Tablet) 8 mg PO TID [facility] Last Admin: 09/11/20 08:24 Dose: 8 mg Documented by: Vancomycin HCl (Vancomycin Per Pharmacy) 1 order IV UD [facility]; Protocol A/P Narrative A/P Narrative: A: #Large gluteal abscess w/soft tissue necrosis extending to right ischial ramus: (s/p I&D 09/10) #Concern for possible osteomyelitis of right ischial ramus: #Partial quadriplegia: lives at home, parents are his caregivers #Neurogenic bladder: self catheterizes at home #Recent UTI: treated with Bactrim #Chronic pain w/opioid dependence: on high dose methadone at home #Hx of left ureteral transitional cell carcinoma: s/p nephroureterectomy July 2020 #Pressure injury on the right knee: present on admission, from wheelchair #Constipation Plan -Vancomycin IV per pharmacy and ceftriaxone for now -General surgery following. -Wound care surgery. -Awaiting call back form ID (Dr. Rodriguez) to discuss surgery report of visualiz ed ramus (?osteomyelitis?) -Following surgical cultures -Continue duloxetine, baclofen, tizanidine, methadone (reduced from home dose), Percocet. -Bowel regimen -Remove lehman catheter when able. -PPx: SCDs until ok with surgery to start lovenox CODE STATUS: DNR per patient's request. Time Spent With Patient Time: Total time spent is greater than 50% in coordination of care (as documented) at patient's floor/unit and/or counseling patient: QUALITY Stroke Symptom Onset Unknown: No VTE Deep Vein Thrombosis/Pulmonary Embolism Present on Admission: No
--- NOTE | 2020-09-11 17:06 | Non-GYN Cytology Report ---
Non Housing Liaison Cytology NG Diagnosis URINE, VOIDED, CYTOLOGY: --- NO ATYPICAL OR MALIGNANT CELLS IDENTIFIED. (ACP:sln) NG Micro Description Examination of the voided urine ThinPrep reveals numerous superficial squamous cells with a few clusters of urothelial cells and background lymphocytes/histiocytes. No atypical or malignant cells are seen. (ACP:sln) NG Gross Description Received 35 mL clear fluid fluid. Electronically Signed Jimmie Germain MD, FCAP Electronically Signed 09/11/2020 17:05
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
[2020-09-11] MEDS: SENNOSIDES 1 TABLET PO SCH (21:34)
[2020-09-11] MEDS: metroNIDAZOLE 500 MG TABLET PO SCH (21:34)
[2020-09-12] MEDS: oxyCODONE/APAP 10/325MG TABLET PO PRN (04:00)
[2020-09-12] MEDS: metroNIDAZOLE 500 MG TABLET PO SCH ×3 (05:12→21:07)
[2020-09-12] MEDS: 0.9 % SODIUM CHLORIDE 10 ML SYRINGE IV SCH ×7 (05:13→21:49)
[2020-09-12] MEDS: HYDROmorphone 1 MG/ML SYRINGE IV PRN ×2 (05:13→23:45)
[2020-09-12] MEDS: METHADONE 5 MG TABLET PO SCH ×3 (06:56→17:02)
[2020-09-12] MEDS ORDERED: ENALAPRILAT 1.25 MG/ML VIAL IV PRN (07:07)
--- NOTE | 2020-09-12 07:11 | Internal Med Progress Note ---
SUBJECTIVE Subjective Patient information: Note initiated : 09/12/20 at 7:06 am Service Date, if different from initiated Date: [] Patient: Zack Cardenas a 50 y/o M admitted on 09/10/20 for buttock wound. Chief Complaint: [] Interval history: Mr. Cardenas is a 50 year old male with a history of partial quadriplegia following an injury many years ago, neurogenic bladder requiring self-catheterization, history of recent left nephrectomy July 2020, recurrent soft tissue infections, recently started on Bactrim for UTI, who presented to the emergency department for right gluteal cellulitis. Further work-up in the ED included a CT abdomen pelvis without contrast revealed subcutaneous soft tissue abnormality in the right gluteal region extending to the perineum most consistent with phlegmon or maturing abscess. Patient was admitted for antibiotics and surgery consultation. 09/10 Surgery planning on I&D today, urology consulting and planning for cystoscopy in OR to evaluate CT findings in bladder. Increased Methadone to TID plus HS prn dosing. Changed code status to DNR per patient's request. Continuos on Vancomycin IV per Rx and Ceftriaxone. 09/11 Large gluteal abscess with extension to ramus seen during surgery yesterday. Discussed findings with surgery and no clear evidence of clinical osteomyelitis. No unexpected cystoscopy findings per urology. Vancomycin trough elevated. Wound care surgery consulted. Call out to Norman regarding possible osteomyelitis. 09/12 No new complaints or overnight event. Pending final wound cultures. Review of Systems: denies headache/fever/chills/nausea/vomiting/chest or abdominal p ain/cough/dyspnea/diarrhea. Otherwise see above. Constitutional Vitals: Vital Signs Temp Pulse Resp BP Pulse Ox 97.7 F 51 L 16 162/94 91 09/12/20 04:00 09/12/20 04:00 09/12/20 04:00 09/12/20 04:00 09/12/20 04:00 Period Temp Pulse Resp BP Sys/Parks Pulse Ox Last 24 Hr 96.7 F-98.4 F 49-61 16-18 123-180/70-99 90-91 Intake and Output 09/11/20 09/12/20 09/12/20 21:59 05:59 13:59 Intake Total 480 540 Output Total 1700 1700 Balance -1220 -1160 Weight 73.346 kg Intake & Output: Intake & Output 09/11/20 09/12/20 09/12/20 21:59 05:59 13:59 Intake Total 480 540 Output Total 1700 1700 Balance -1220 -1160 Weight 73.346 kg Intake: Oral 480 540 Output: Urine Catheter Amount 1700 1700 Other: Meal Lunch Percent of Meal Consumed 100% Urine Appearance Clear Clear Uretheral (Lehman) Clear Urine Color Bright Yellow Pale Uretheral (Lehman) Dark Yellow Urine Odor Normal Stool Size Small Stool Color Brown Stool Consistency Loose Exam: General: Alert, Awake, No acute Distress Eyes/N/T: EOMI, Head/Neck: neck supple, CV: RRR, No murmurs, Pulm: Clear b/l, no wheezing/rhonchi/rales Abd: soft, nontender, +BS x4 Ext: no clubbing/cyanosis/edema, gluteal surgical dressing in place Neuro: Alert, no focal deficits, moves all extremities, Skin: warm/dry OBJ DATA Labs CBC & Chem 7: 09/12/20 05:38 09/12/20 05:38 Labs: Abnormal Lab Results 09/11/20 09/11/20 09/10/20 05:55 05:55 06:48 RBC 3.97 L 4.10 L Hgb 11.9 L 12.2 L Hct 37.4 L 38.9 L RDW 15.3 H 15.5 H Anion Gap Creatinine 0.5 L Glucose 147 H Phosphorus 2.3 L Alkaline Phosphatase 127 H C-Reactive Protein Albumin 2.4 L Globulin 4.2 H Albumin/Globulin Ratio 0.6 L Triglycerides Vancomycin Trough 09/10/20 09/10/20 06:48 05:30 RBC Hgb Hct RDW Anion Gap 7.0 L Creatinine 0.6 L Glucose Phosphorus Alkaline Phosphatase 152 H C-Reactive Protein 17.10 H Albumin 2.4 L Globulin 4.8 H Albumin/Globulin Ratio 0.5 L Triglycerides 173 H Vancomycin Trough 23.4 H* Meds: Medications Baclofen (Baclofen 10 Mg Tablet) 20 mg PO TID [facility] Last Admin: 09/11/20 21:33 Dose: 20 mg Documented by: Bisacodyl (Bisacodyl 10 Mg Supp.Rect) 10 mg HI Q48H [facility] Last Admin: 09/10/20 18:54 Dose: Not Given Documented by: Docusate Sodium (Docusate Sodium 100 Mg Capsule) 100 mg PO BID [facility] Last Admin: 09/11/20 21:34 Dose: 100 mg Documented by: Duloxetine HCl (Duloxetine 30 Mg Capsule) 60 mg PO DAILY [facility] Last Admin: 09/11/20 08:23 Dose: 60 mg Documented by: Hydromorphone HCl (Hydromorphone 1 Mg/Ml Syringe) 0.5 mg IV Q4HP PRN; Protocol PRN Reason: Per Pain Protocol Last Admin: 09/12/20 05:13 Dose: 0.5 mg Documented by: Ceftriaxone Sodium 2 gm/ (Dextrose) 50 mls @ 100 mls/hr IV DAILY [facility]; Protocol Last Admin: 09/11/20 10:49 Dose: Not Given Documented by: Vancomycin HCl 1,500 mg/ (Sodium Chloride) 500 mls @ 333.3 mls/hr IV Q24H [facility] Last Infusion: 09/11/20 12:25 Dose: Infused Documented by: Gentamicin Sulfate 80 mg/Clindamycin Phosphate 600 mg/Bacitracin 50,000 unit/ Sodium Chloride 3,006 mls @ 15 mls/hr IRR PRN PRN PRN Reason: For use AT BEDSIDE DAILY Lactulose (Lactulose 20 Gm/30 Ml Oral.Linda) 10 gm PO DAILYP PRN PRN Reason: Constipation Methadone HCl (Methadone 5 Mg Tablet) 30 mg PO HSP PRN PRN Reason: Pain Level > 5 Last Admin: 09/11/20 22:57 Dose: 30 mg Documented by: Methadone HCl (Methadone 5 Mg Tablet) 30 mg PO TID@0700,1200,1700 [facility] Last Admin: 09/12/20 06:56 Dose: 30 mg Documented by: Metronidazole (Metronidazole 500 Mg Tablet) 500 mg PO Q8 [facility]; Protocol Stop: 09/18/20 21:59 Last Admin: 09/12/20 05:12 Dose: 500 mg Documented by: Naloxone HCl (Naloxone Hcl 0.4 Mg/Ml Vial) 0.2 mg IV Q5M PRN PRN Reason: Opiate Reversal Ondansetron HCl (Ondansetron 4 Mg/2 Ml Vial) 4 mg IV Q6HP PRN PRN Reason: Nausea And Vomiting Oxybutynin Chloride (Oxybutynin Chloride 5 Mg Tab.Xl.24h) 10 mg PO BID [facility] Last Admin: 09/11/20 21:33 Dose: 10 mg Documented by: Oxycodone/Acetaminophen (Oxycodone/Apap 10/325mg Tablet) 1 tab PO Q6HP PRN; Protocol PRN Reason: Per Pain Protocol Last Admin: 09/12/20 04:00 Dose: 1 tab Documented by: Polyethylene Glycol (Polyethylene Glycol 3350 17 Gm Packet) 17 gm PO DAILY [facility] Last Admin: 09/11/20 08:22 Dose: 17 gm Documented by: Senna (Sennosides 1 Tablet) 2 tab PO HS [facility] Last Admin: 09/11/20 21:34 Dose: 2 tab Documented by: Sodium Chloride (0.9 % Sodium Chloride 10 Ml Syringe) 10 ml IV Q8 [facility] Last Admin: 09/12/20 05:13 Dose: 10 ml Documented by: Sodium Chloride (0.9 % Sodium Chloride 10 Ml Syringe) 10 ml IV Q8 [facility] Last Admin: 09/12/20 05:13 Dose: Not Given Documented by: Tizanidine HCl (Tizanidine 4 Mg Tablet) 8 mg PO TID [facility] Last Admin: 09/11/20 21:34 Dose: 8 mg Documented by: Vancomycin HCl (Vancomycin Per Pharmacy) 1 order IV UD [facility]; Protocol A/P Narrative A/P Narrative: A: #Large gluteal abscess w/soft tissue necrosis extending to right ischial ramus: (s/p I&D 09/10) -Concern for possible osteomyelitis of right ischial ramus -cx growing Staph #Partial quadriplegia: lives at home, parents are his caregivers #Neurogenic bladder: self catheterizes at home #Recent UTI: treated with Bactrim #Chronic pain w/opioid dependence: on high dose methadone at home #Hx of left ureteral transitional cell carcinoma: s/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 -Following surgical cultures -Continue duloxetine, baclofen, tizanidine, methadone (reduced from home dose), Percocet. -Bowel regimen -Remove lehman catheter when able. -PPx: SCDs until ok with surgery to start lovenox CODE STATUS: DNR per patient's request. Time Spent With Patient Time: Total time spent is greater than 50% in coordination of care (as documented) at patient's floor/unit and/or counseling patient: QUALITY Stroke Symptom Onset Unknown: No VTE Deep Vein Thrombosis/Pulmonary Embolism Present on Admission: No
[2020-09-12 07:20] LABS: Hematocrit 39.6 % (41.0-55.0); Hemoglobin 12.7 g/dL (13.5-16.5); Mean Cell Volume 93.2 fL (80.0-100.0); Mean Corpuscular HGB Conc 32.1 g/dL (31.0-36.0); Mean Platelet Volume 9.1 fL (7.4-10.4); Platelet Count 334 K/mcL (140-440); RBC 4.25 M/mcL (4.50-5.90); Red Cell Distribution Width 15.4 % (11.5-14.5); WBC 8.8 K/mcL (4.5-11.0)
[2020-09-12 07:35] LABS: ALT/SGPT 12 U/L (<40); AST/SGOT 14 U/L (<40); Albumin 2.8 gm/dL (3.2-5.2); Albumin/Globulin Ratio 0.7 (1.0-2.3); Alkaline Phosphatase 142 U/L (39-117); Bilirubin,Direct < 0.2 mg/dL (0-0.3); Bilirubin,Total < 0.2 mg/dL (0.1-1.0); Blood Urea Nitrogen 13 mg/dL (6-20); Calcium 8.6 mg/dL (8.6-10.4); Carbon Dioxide 29 mmol/L (22-30); Chloride 102 mmol/L (96-108); Globulin 4.2 gm/dL (2.2-3.7); Glomerular Filtration Rate 126; Glucose 86 mg/dL (70-105); Lactate Dehydrogenase 145 U/L (135-225); Phosphorous 2.3 mg/dL (2.5-4.5); Triglycerides 199 mg/dL (<150); Uric Acid 3.9 mg/dL (2.5-8.0)
[2020-09-12 09:15] LABS: Erythrocyte Sedimentation Rate 97 mm/hr (0-15)
[2020-09-12 09:19] LABS: Band Neutrophils % 1 % (0-10); Basophils % (Manual) 1 % (0-2); Eosinophils % (Manual) 2 % (0-7); Lymphocytes % 35 % (15-49); Monocytes % (Manual) 9 % (1-12); Myelocytes % 1 %; Platelet Estimate NORMAL (Normal); RBC Morphology NORMAL (Normal); Reactive Lymphocytes 1 % (0-2); Segmented Neutrophils % 50 % (38-78)
[2020-09-12] MEDS: BACLOFEN 10 MG TABLET PO SCH ×3 (10:17→21:08)
[2020-09-12] MEDS: tiZANidine 4 MG TABLET PO SCH ×3 (10:17→21:09)
[2020-09-12] MEDS: OXYBUTYNIN CHLORIDE 5 MG TAB.XL.24H PO SCH ×2 (10:19→21:09)
[2020-09-12] MEDS: DULoxetine 30 MG CAPSULE PO SCH (10:19)
[2020-09-12] MEDS: ENOXAPARIN 40 MG/0.4 ML SYRINGE SQ SCH (10:24)
--- NOTE | 2020-09-12 10:29 | General Surgery Progress Note ---
SUBJECTIVE Subjective Patient information: Note initiated : 09/12/20 at 10:23 am Service Date, if different from initiated Date: [] Patient: Zack Cardenas 50 y/o M admitted on 09/10/20 for buttock wound. Chief Complaint: [] Additional PMFSH (Level 3 Only): Patient had an uneventful night. Reviewed input from Dr. Rodriguez. Constitutional Vitals: Vital Signs Temp Pulse Resp BP Pulse Ox 97.2 F 57 L 16 172/102 90 09/12/20 07:08 09/12/20 07:08 09/12/20 07:08 09/12/20 07:08 09/12/20 07:08 Period Temp Pulse Resp BP Sys/Parks Pulse Ox Last 24 Hr 96.7 F-98.3 F 49-61 16-18 123-180/70-102 90-91 Intake and Output 09/11/20 09/12/20 09/12/20 21:59 05:59 13:59 Intake Total 480 540 360 Output Total 1700 1700 950 Balance -1220 -1160 -590 Weight 161 lb 11.2 oz Intake & Output: Intake & Output 09/11/20 09/12/20 09/12/20 21:59 05:59 13:59 Intake Total 480 540 360 Output Total 1700 1700 950 Balance -1220 -1160 -590 Weight 161 lb 11.2 oz Intake: Oral 480 540 360 Output: Urine Catheter Amount 1700 1700 950 Other: Meal Lunch Breakfast Percent of Meal Consumed 100% 100% Feeding Ability Independent Urine Appearance Clear Clear Clear Uretheral (Car) Clear Clear Urine Color Bright Yellow Pale Bright Yellow Uretheral (Car) Dark Yellow Bright Yellow Urine Odor Normal Stool Size Small Stool Color Brown Stool Consistency Loose A/P Narrative A/P Narrative: Assessment: No changes in Clinical Examination I spoke with Dr. Mona Wong. Had a long chat with patient and answered his questions. Patient is coping well with his rehabilitation process and has family support. We discussed about improvement in his day to day ADL with colostomy. RECOMMEND: Evaluation by RAGHU ( RN WOCN ) Ostomy Nurse, PLAN: Continue with ongoing local wound care for now. Time Spent With Patient Time: Total time spent is greater than 50% in coordination of care (as documented) at patient's floor/unit and/or counseling patient: Total time spent with greater than 50% in coordination of care (as documented) at patient's floor/unit and/or counseling patient:: 15 - 24 minutes
[2020-09-12] MEDS: cefTRIAXone 2 GM in DEXTROSE 5% IN WATER 50 ML IV SCH (10:34)
--- NOTE | 2020-09-12 11:14 | Discharge Summary ---
Discharge Provider Provider Patient information: Note initiated : 09/12/20 at 11:13 am Service Date, if different from initiated Date: [] Patient: Zack Cardenas 50 y/o M admitted on 09/10/20 for buttock wound. Chief Complaint: [] Date of admission: 09/10/20 12:20 Discharge date: 09/16/20 Primary care physician: Louis Wong Consults: 09/08/20 Consult to Physician [CONS] Stat Comment: Consulting Provider: Zack Machado Reason For Exam: Physician to Consult Consult to Physician [CONS] Stat Comment: gluteal abscess Consulting Provider: Mona Wong Reason For Exam: Physician to Consult 09/09/20 13:07 Consult to Physician [CONS] Routine Comment: Consulting Provider: Shakeel Owusu Reason For Exam: Physician to Consult 09/10/20 11:09 Consult to Physician [CONS] Routine Comment: wound care for correction project management advisor Provider: Han Yeager Reason For Exam: Physician to Consult 09/11/20 10:44 Consult to Physician [CONS] Routine Comment: Possible osteomyelitis? Consulting Provider: Dallas Rodriguez Reason For Exam: Physician to Consult Discharge Meds Discharge Medications Home Medications baclofen 20 mg PO TID 09/22/18 [History Confirmed 09/09/20 Last Taken 09/08/20 08:00 20 mg] duloxetine [Cymbalta] 60 mg PO DAILY 09/22/18 [History Confirmed 09/09/20 Last Taken 09/08/20 08:00 60 mg] methadone 30 mg PO TID 09/22/18 [History Confirmed 09/09/20 Last Taken 09/08/20 22:00 70 mg] oxybutynin chloride 10 mg PO BID 09/22/18 [History Confirmed 09/09/20 Last Taken 09/08/20 08:00 10 mg] tizanidine [Zanaflex] 16 mg PO TID 09/22/18 [History Confirmed 09/09/20 Last Taken 09/08/20 08:00 4 mg] methadone 50 mg PO HS 09/09/20 [History Confirmed 09/09/20 Last Taken Unknown] oxycodone-acetaminophen [Percocet] 1 - 1.5 tab PO QID 09/09/20 [History Confirmed 09/09/20 Last Taken Unknown] oxycodone-acetaminophen [Percocet] 1 tab PO DAILYP PRN 09/09/20 [History Confirmed 09/09/20 Last Taken Unknown] bisacodyl [Dulcolax (bisacodyl)] 10 mg VT Q48 09/10/20 [History Confirmed 09/10/20 Last Taken 09/07/20] ampicillin-sulbactam [Unasyn] 3 g IM Q6H #1 ea 09/13/20 [Rx Last Taken Unknown] COURSE Hospital Course Hospital course: Interval history: Mr. Cardenas is a 50 year old male with a history of partial quadriplegia following an injury many years ago, neurogenic bladder requiring self-catheterization, history of recent left nephrectomy July 2020, recurrent soft tissue infections, recently started on Bactrim for UTI, who presented to the emergency department for right gluteal cellulitis. Further work-up in the ED included a CT abdomen pelvis without contrast revealed subcutaneous soft tissue abnormality in the right gluteal region extending to the perineum most consistent with phlegmon or maturing abscess. Patient was admitted for antibiotics and surgery consultation. 09/10 Surgery planning on I&D today, urology consulting and planning for cystoscopy in OR to evaluate CT findings in bladder. Increased Methadone to TID plus HS prn dosing. Changed code status to DNR per patient's request. Continuos on Vancomycin IV per Rx and Ceftriaxone. 09/11 Large gluteal abscess with extension to ramus seen during surgery yesterday. Discussed findings with surgery and no clear evidence of clinical osteomyelitis. No unexpected cystoscopy findings per urology. Vancomycin trough elevated. Wound care surgery consulted. Call out to Norman regarding possible osteomyelitis. 09/12 No new complaints or overnight event. Pending final wound cultures. 09/13 No new complaints other than him stating is not getting his home methadone regimen. He says he 640 mg daily and pressure all throughout the day and states not getting his bedtime dose. Cultures growing MSSA. PICC today. *Discussed the case with Dr. Rodriguez after wound cultures grew MSSA. Also concern for anaerobes and so Dr. Rodriguez's recommendations were 6 weeks of IV Unasyn. 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 #Pressure injury on the right knee: present on admission, from wheelchair #Constipation Discharge diagnosis: Gluteal abscess with soft tissue necrosis Secondary discharge diagnosis: Partial quadriplegia neurogenic bladder chronic pain or functional status Time Spent with Patient Time attestation: Total time spent providing and/or coordinating discharge services: Time spent: Greater than 30 minutes EXAM Constitutional Vitals: Temp Pulse Resp BP Pulse Ox 97.2 F 57 L 16 172/102 90 09/12/20 07:08 09/12/20 07:08 09/12/20 07:08 09/12/20 07:08 09/12/20 07:08 Discharge Data Data Completed and Pending Labs on day of discharge: Labs from last 24 hours 09/12/20 09/12/20 05:38 05:38 WBC 8.8 RBC 4.25 L Hgb 12.7 L Hct 39.6 L MCV 93.2 MCH 29.9 MCHC 32.1 RDW 15.4 H Plt Count 334 MPV 9.1 Seg Neutrophils % 50 Band Neutrophils % 1 Lymphocytes % 35 Monocytes % (Manual) 9 Eosinophils % (Manual) 2 Basophils % (Manual) 1 Myelocytes % 1 Reactive Lymphocytes 1 Platelet Estimate Normal RBC Morphology Normal ESR 97 H Sodium 138 Potassium 3.8 Chloride 102 Carbon Dioxide 29 Anion Gap 7.0 L BUN 13 Creatinine 0.5 L GFR Calculation 126 Glucose 86 Uric Acid 3.9 Calcium 8.6 Phosphorus 2.3 L Magnesium 2.1 Total Bilirubin < 0.2 Direct Bilirubin < 0.2 GGT 47 AST 14 ALT 12 Alkaline Phosphatase 142 H Lactate Dehydrogenase 145 Total Protein 7.0 Albumin 2.8 L Globulin 4.2 H Albumin/Globulin Ratio 0.7 L Triglycerides 199 H Preliminary micro results at discharge 09/10/20 10:30 Gram Stain - Preliminary Abscess - Buttocks Anaerobic Culture - Preliminary 09/08/20 21:30 Blood Culture - Preliminary Blood 09/08/20 20:56 Blood Culture - Preliminary Blood 09/10/20 10:30 Gram Stain - Preliminary Buttock - Right Abscess Culture - Preliminary Staphylococcus aureus Discharge Plan Patient/Caregiver Discharge Instructions Instructions: How to Prevent Pressure Injuries (DC), Colectomy Diet (DC) Additional Instructions: f/u with Surgeon 1-2 weeks f/u with wound care upon d/c. f/u with infectious dz weekly cbc/cmp while on IV antibiotics, send to Dr. Rodriguez IV abx to finish 10/21/2020 PICC line care to continue until 10/21/2020 then d/c. Prescriptions: New ampicillin-sulbactam [Unasyn] 3 gram recon soln 3 g IM Q6H Qty: 1 RF: 0 Continued oxybutynin chloride 10 MG tablet extended release 24hr 10 mg PO BID RF: 0 methadone 10 MG tablet 30 mg PO TID RF: 0 baclofen 20 MG tablet 20 mg PO TID RF: 0 duloxetine [Cymbalta] 60 MG capsule,delayed release(DR/EC) 60 mg PO DAILY RF: 0 tizanidine [Zanaflex] 4 MG capsule 16 mg PO TID RF: 0 oxycodone-acetaminophen [Percocet] 10-325 mg Tablet 1 - 1.5 tab PO QID RF: 0 methadone 10 mg Tablet 50 mg PO HS RF: 0 oxycodone-acetaminophen [Percocet] 10-325 mg Tablet 1 tab PO DAILYP PRN (Reason: Pain) RF: 0 bisacodyl [Dulcolax (bisacodyl)] 10 mg Suppository 10 mg VT Q48 RF: 0 Discontinued cefdinir 300 MG capsule 300 mg PO BID Qty: 10 RF: 0 sulfamethoxazole-trimethoprim [Bactrim DS] 800-160 mg tablet 1 tab PO BID Qty: 10 RF: 0 Follow Up Plan Follow up with: Han Yeager MD [Physician] - Louis Wong MD [Primary Care Provider] - Dallas Rodriguez MD [Physician] - Disposition: Xfer As Swing Bed ([facility]) Prognosis: Undetermined Discharge Orders: Discharge Order (Routine); Ordered 09/16/20 Ordered By: José Miguel Wright [facility] VTE Deep Vein Thrombosis/Pulmonary Embolism Present on Admission: No
[2020-09-12] MEDS: VANCOMYCIN 1,500 MG in 0.9 % SODIUM CHLORIDE 500 ML IV SCH (11:18)
[2020-09-12] MEDS: BISACODYL 10 MG SUPP.RECT PR SCH (11:22)
[2020-09-12] MEDS: POLYETHYLENE GLYCOL 3350 17 GM PACKET PO SCH (11:24)
[2020-09-12] MEDS: DOCUSATE SODIUM 100 MG CAPSULE PO SCH ×2 (11:29→21:08)
--- NOTE | 2020-09-12 11:31 | General Surgery Progress Note ---
SUBJECTIVE Subjective Patient information: Note initiated : 09/12/20 at 11:24 am Service Date, if different from initiated Date: [] Patient: Zack Cardenas 50 y/o M admitted on 09/10/20 for buttock wound. Chief Complaint: [] Interval history: Patient is seen in follow-up status post drainage of a large right gluteal abscess with extension to the inferior ischio- pubic ramus. Cultures are growing out staph aureus. Plan is for long-term antibiotic care. Patient is not accepting of stoma at this time. Though it is probable that he will eventually needed, it is reasonable to give a trial of long-term antibiotics in the setting of long-term care facility with aggressive nursing, dressing changes, and further debridement if needed. Plan is for transfer to long-term care facility. Constitutional Vitals: Vital Signs Temp Pulse Resp BP Pulse Ox 97.2 F 57 L 16 172/102 90 09/12/20 07:08 09/12/20 07:08 09/12/20 07:08 09/12/20 07:08 09/12/20 07:08 Period Temp Pulse Resp BP Sys/Parks Pulse Ox Last 24 Hr 96.7 F-98.3 F 49-61 16-18 123-180/70-102 90-91 Intake and Output 09/11/20 09/12/20 09/12/20 21:59 05:59 13:59 Intake Total 480 540 410 Output Total 1700 1700 950 Balance -1220 -1160 -540 Weight 161 lb 11.2 oz Intake & Output: Intake & Output 09/11/20 09/12/20 09/12/20 21:59 05:59 13:59 Intake Total 480 540 410 Output Total 1700 1700 950 Balance -1220 -1160 -540 Weight 161 lb 11.2 oz Intake: IV 50 Rocephin 2 gm In Dextrose 5% in 50 Water 50 ml @ 100 mls/hr IV DAILY [facility] Rx#:[id number] Oral 480 540 360 Output: Urine Catheter Amount 1700 1700 950 Other: Meal Lunch Breakfast Percent of Meal Consumed 100% 100% Feeding Ability Independent Urine Appearance Clear Clear Clear Uretheral (Car) Clear Clear Urine Color Bright Yellow Pale Bright Yellow Uretheral (Car) Dark Yellow Bright Yellow Urine Odor Normal Stool Size Small Stool Color Brown Stool Consistency Loose A/P Assessment and plan (1) Abscess and cellulitis of gluteal region: Status: Acute Comment: Zack is a 50-year-old incomplete C6-C7 quadriplegic who is postop day 1 incision and drainage of right buttock abscess. On CT scan, it extended into the perineum. At the time of surgery, Dr. Wong noted that there was extension of abscess to the ramus of the right ischium. No osteomyelitis seen on CT scan. Cultures have revealed a staph aureus with sensitivities pending. Await final culture and sensitivity data. No previous history of MRSA. He does have a previous history of boils. This particular boil had bothered him for approximately 1 year. It has received intralesional steroid injection. On photo of admit, it does appear as a chronic ulcerated wound. I would like to look at the wound tomorrow with dressing change. Depending on final culture, it may be MSSA alone for which we could use either Unasyn or Ancef. Continue Vanco and Rocephin for now. I am expecting that he will need prolonged IV therapy. He would benefit from a tunneled IJ PICC line placement rather than in the arm placement (2) Staph aureus infection: Status: Acute Comment: Sensitivities pending. Awaiting additional culture to see if additional organisms grow. Continue Vanco and Rocephin for now. I was able to look at the wound this afternoon with Dr. Yeager. It overlies the right ischium. Large cavity with entrance. Ischium is easily palpable. I am expecting 6 weeks of IV antibiotic therapy. Depending on culture data, may be able to use Unasyn. Anaerobes may be present in addition to the staph already identified. Further recommendations to follow. Check sed rate and Flagyl at this time. (3) Quadriplegia and quadriparesis: Status: Acute Comment: C6-C7 incomplete quadriplegia. He does have upper extremity movement. Narrative A/P Narrative: Agree with plan for LTAC long-term care with long-term antibiotics as initial approach to care for this major wound. He understands that if this is not successful that he will eventually need stoma permanently. Time Spent With Patient Time: Total time spent is greater than 50% in coordination of care (as documented) at patient's floor/unit and/or counseling patient:
--- NOTE | 2020-09-12 14:15 | Operative Note ---
DATE OF OPERATION: 09/10/2020 PREOPERATIVE DIAGNOSIS: Right gluteal abscess. POSTOPERATIVE DIAGNOSIS: Right gluteal abscess. PROCEDURE: Excisional debridement and drainage of right gluteal abscess. SURGEON: Mona Wong M.D. FINDINGS: Large abscess cavity with extension to the ramus of the right ischium with necrosis of the subcutaneous tissue, muscle, and fascia. DESCRIPTION OF PROCEDURE: Under general anesthesia, the patient was placed in the lithotomy position. His buttocks were prepped and draped in the sterile field. The indurated area of the right buttock over the area of the ischial tuberosity was aspirated with an 18-gauge needle. A large volume of pus was removed. It was sent for culture and sensitivity. It was then incised with an 11 blade and the thin tissue covering the area was unroofed. A large volume of pus was aspirated. It was irrigated with saline and bacitracin solution. There were loculations noted, which were finger fractionated. The wound was then partially scraped with removal of necrotic fascia and muscle. Palpation revealed that the ramus of the ischium on the right was exposed. Using gentle dissection, I was able to get good palpation of the bone, and I could not feel any irregularity. More necrotic tissue was removed after which the cavity was irrigated once more. It was then packed with multiple sheets of hemostatic gauze. A 4 x 4 dressing was placed and was then covered with surgical briefs to hold it in place. The patient tolerated the procedure well. He was awakened and transferred to the postanesthetic care unit in stable, satisfactory condition. [id number]:jey Job ID: [id number] Doc ID: [id number] Mona Wong M.D.
[2020-09-12] MEDS ORDERED: 0.9 % SODIUM CHLORIDE 10 ML SYRINGE IV PRN (16:10)
[2020-09-12] MEDS: CLINDAMYCIN IRR SCH (16:40)
[2020-09-12] MEDS: [UNRECOGNIZED DRUG - OTHER] IRR SCH (16:40)
[2020-09-12] MEDS: BACITRACIN IRR SCH (16:40)
[2020-09-12] MEDS: GENTAMICIN SULFATE IRR SCH (16:40)
[2020-09-12] MEDS: SENNOSIDES 1 TABLET PO SCH (21:08)
[2020-09-12] MEDS: METHADONE 5 MG TABLET PO PRN (21:10)
[2020-09-13] MEDS: oxyCODONE/APAP 10/325MG TABLET PO PRN ×2 (03:33→10:02)
[2020-09-13] MEDS: metroNIDAZOLE 500 MG TABLET PO SCH ×3 (05:49→21:45)
[2020-09-13] MEDS: 0.9 % SODIUM CHLORIDE 10 ML SYRINGE IV SCH ×8 (05:49→22:25)
--- NOTE | 2020-09-13 07:13 | Internal Med Progress Note ---
SUBJECTIVE Subjective Patient information: Note initiated : 09/13/20 at 7:12 am Service Date, if different from initiated Date: [] Patient: Zack Cardenas a 50 y/o M admitted on 09/10/20 for buttock wound. Chief Complaint: [] Interval history: Mr. Cardenas is a 50 year old male with a history of partial quadriplegia following an injury many years ago, neurogenic bladder requiring self-catheterization, history of recent left nephrectomy July 2020, recurrent soft tissue infections, recently started on Bactrim for UTI, who presented to the emergency department for right gluteal cellulitis. Further work-up in the ED included a CT abdomen pelvis without contrast revealed subcutaneous soft tissue abnormality in the right gluteal region extending to the perineum most consistent with phlegmon or maturing abscess. Patient was admitted for antibiotics and surgery consultation. 09/10 Surgery planning on I&D today, urology consulting and planning for cystoscopy in OR to evaluate CT findings in bladder. Increased Methadone to TID plus HS prn dosing. Changed code status to DNR per patient's request. Continuos on Vancomycin IV per Rx and Ceftriaxone. 09/11 Large gluteal abscess with extension to ramus seen during surgery yesterday. Discussed findings with surgery and no clear evidence of clinical osteomyelitis. No unexpected cystoscopy findings per urology. Vancomycin trough elevated. Wound care surgery consulted. Call out to [facility] regarding possible osteomyelitis. / No new complaints or overnight event. Pending final wound cultures. 09/13 No new complaints other than him stating is not getting his home methadone regim en. He says he 640 mg daily and pressure all throughout the day and states not getting his bedtime dose. Cultures growing MSSA. PICC today. Review of Systems: denies headache/fever/chills/nausea/vomiting/chest or abdominal pain/cough/dyspnea/diarrhea. Otherwise see above. Constitutional Vitals: Vital Signs Temp Pulse Resp BP Pulse Ox 97 F 86 18 141/96 94 09/13/20 06:38 09/13/20 06:38 09/13/20 06:38 09/13/20 06:38 09/13/20 06:38 Period Temp Pulse Resp BP Sys/Parks Pulse Ox Last 24 Hr 97 F-98.8 F 53-93 16-20 64-184/43-113 90-97 Intake and Output 04/02/21 04/03/21 04/03/21 21:59 05:59 13:59 Intake Total 840 1280 Output Total 1400 4325 Balance -560 -3045 Weight 78.517 kg Intake & Output: Intake & Output 09/12/20 09/13/20 09/13/20 21:59 05:59 13:59 Intake Total 840 1280 Output Total 1400 4325 Balance -560 -3045 Weight 78.517 kg Intake: Oral 840 1280 Output: Urine Catheter Amount 1400 4325 Other: Urine Appearance Clear Clear Uretheral (Lehman) Clear Urine Color Bright Yellow Pale Uretheral (Lehman) Bright Yellow Exam: General: Alert, Awake, No acute Distress Eyes/N/T: EOMI, Head/Neck: neck supple, CV: RRR, No murmurs, Pulm: Clear b/l, no wheezing/rhonchi/rales Abd: soft, nontender, +BS x4 Ext: no clubbing/cyanosis/edema, gluteal surgical dressing in place Neuro: Alert, no focal deficits, moves all extremities, Skin: warm/dry OBJ DATA Labs CBC & Chem 7: 09/12/20 05:38 09/12/20 05:38 Labs: Abnormal Lab Results 09/12/20 09/12/20 09/11/20 05:38 05:38 05:55 RBC 4.25 L Hgb 12.7 L Hct 39.6 L RDW 15.4 H ESR 97 H Anion Gap 7.0 L Creatinine 0.5 L 0.5 L Glucose 147 H Phosphorus 2.3 L 2.3 L Alkaline Phosphatase 142 H 127 H Albumin 2.8 L 2.4 L Globulin 4.2 H 4.2 H Albumin/Globulin Ratio 0.7 L 0.6 L Triglycerides 199 H Vancomycin Trough 09/11/20 09/10/20 09/10/20 05:55 06:48 06:48 RBC 3.97 L 4.10 L Hgb 11.9 L 12.2 L Hct 37.4 L 38.9 L RDW 15.3 H 15.5 H ESR Anion Gap Creatinine Glucose Phosphorus Alkaline Phosphatase Albumin Globulin Albumin/Globulin Ratio Triglycerides Vancomycin Trough 23.4 H* Meds: Medications Baclofen (Baclofen 10 Mg Tablet) 20 mg PO TID NELI Last Admin: 09/12/20 21:08 Dose: 20 mg Documented by: Bisacodyl (Bisacodyl 10 Mg Supp.Rect) 10 mg AL Q48H [facility] Last Admin: 09/12/20 11:22 Dose: Not Given Documented by: Docusate Sodium (Docusate Sodium 100 Mg Capsule) 100 mg PO BID [facility] Last Admin: 09/12/20 21:08 Dose: Not Given Documented by: Duloxetine HCl (Duloxetine 30 Mg Capsule) 60 mg PO DAILY [facility] Last Admin: 09/12/20 10:19 Dose: 60 mg Documented by: Enalaprilat (Enalaprilat 1.25 Mg/Ml Vial) 0 mg IV Q2HP PRN PRN Reason: Hypertension Last Admin: 09/12/20 23:54 Dose: 1.25 mg Documented by: Enoxaparin Sodium (Enoxaparin 40 Mg/0.4 Ml Syringe) 40 mg SQ DAILY [facility] Last Admin: 09/12/20 10:24 Dose: 40 mg Documented by: Heparin Sodium (Porcine) (Heparin Flush 10 Units/Ml 5 Ml Syringe) 2 ml IV Q12 [facility] Last Admin: 09/12/20 21:05 Dose: Not Given Documented by: Hydromorphone HCl (Hydromorphone 1 Mg/Ml Syringe) 0.5 mg IV Q4HP PRN; Protocol PRN Reason: Per Pain Protocol Last Admin: 09/12/20 23:45 Dose: 0.5 mg Documented by: Ceftriaxone Sodium 2 gm/ (Dextrose) 50 mls @ 100 mls/hr IV DAILY [facility]; Protocol Last Infusion: 09/12/20 11:05 Dose: Infused Documented by: Vancomycin HCl 1,500 mg/ (Sodium Chloride) 500 mls @ 333.3 mls/hr IV Q24H [facility] Last Infusion: 09/12/20 12:50 Dose: Infused Documented by: Gentamicin Sulfate 80 mg/Clindamycin Phosphate 600 mg/Bacitracin 50,000 unit/ Non- Formulary Medication 6 mls @ 0 mls/hr IRR Q24H [facility] Last Admin: 09/12/20 16:40 Dose: 6 mls/hr Documented by: Lactulose (Lactulose 20 Gm/30 Ml Oral.Linda) 10 gm PO DAILYP PRN PRN Reason: Constipation Methadone HCl (Methadone 5 Mg Tablet) 30 mg PO HSP PRN PRN Reason: Pain Level > 5 Last Admin: 09/12/20 21:10 Dose: 30 mg Documented by: Methadone HCl (Methadone 5 Mg Tablet) 30 mg PO TID@0700,1200,1700 [facility] Last Admin: 09/12/20 17:02 Dose: 30 mg Documented by: Metronidazole (Metronidazole 500 Mg Tablet) 500 mg PO Q8 [facility]; Protocol Stop: 09/18/20 21:59 Last Admin: 09/13/20 05:49 Dose: 500 mg Documented by: Naloxone HCl (Naloxone Hcl 0.4 Mg/Ml Vial) 0.2 mg IV Q5M PRN PRN Reason: Opiate Reversal Ondansetron HCl (Ondansetron 4 Mg/2 Ml Vial) 4 mg IV Q6HP PRN PRN Reason: Nausea And Vomiting Oxybutynin Chloride (Oxybutynin Chloride 5 Mg Tab.Xl.24h) 10 mg PO BID [facility] Last Admin: 09/12/20 21:09 Dose: 10 mg Documented by: Oxycodone/Acetaminophen (Oxycodone/Apap 10/325mg Tablet) 1 tab PO Q6HP PRN; Protocol PRN Reason: Per Pain Protocol Last Admin: 09/13/20 03:33 Dose: 1 tab Documented by: Polyethylene Glycol (Polyethylene Glycol 3350 17 Gm Packet) 17 gm PO DAILY [facility] Last Admin: 09/12/20 11:24 Dose: Not Given Documented by: Senna (Sennosides 1 Tablet) 2 tab PO HS [facility] Last Admin: 09/12/20 21:08 Dose: Not Given Documented by: Sodium Chloride (0.9 % Sodium Chloride 10 Ml Syringe) 10 ml IV Q8 [facility] Last Admin: 09/13/20 05:49 Dose: 10 ml Documented by: Sodium Chloride (0.9 % Sodium Chloride 10 Ml Syringe) 10 ml IV Q8 [facility] Last Admin: 09/13/20 05:49 Dose: Not Given Documented by: Sodium Chloride (0.9 % Sodium Chloride 10 Ml Syringe) 10 ml IV UD PRN PRN Reason: FLUSH Sodium Chloride (0.9 % Sodium Chloride 10 Ml Syringe) 10 ml IV Q12 [facility] Last Admin: 09/12/20 21:06 Dose: Not Given Documented by: Tizanidine HCl (Tizanidine 4 Mg Tablet) 8 mg PO TID [facility] Last Admin: 09/12/20 21:09 Dose: 8 mg Documented by: Vancomycin HCl (Vancomycin Per Pharmacy) 1 order IV UD [facility]; Protocol A/P Narrative A/P Narrative: A: #Large gluteal abscess w/soft tissue necrosis extending to right ischial ramus: (s/p I&D 09/10) -Concern for possible osteomyelitis of right ischial ramus -cx growing MSSA #Partial quadriplegia: lives at home, parents are his caregivers #Neurogenic bladder: self catheterizes at home #Recent UTI: treated with Bactrim #Chronic pain w/opioid dependence: on high dose methadone at home #Hx of left ureteral transitional cell carcinoma: s/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 -Following surgical cultures -Continue duloxetine, baclofen, tizanidine, methadone, Percocet. -Bowel regimen -Remove lehman catheter when able. -PPx: SCDs until ok with surgery to start lovenox CODE STATUS: DNR per patient's request. Time Spent With Patient Time: Total time spent is greater than 50% in coordination of care (as documented) at patient's floor/unit and/or counseling patient: QUALITY Stroke Symptom Onset Unknown: No VTE Deep Vein Thrombosis/Pulmonary Embolism Present on Admission: No
[2020-09-13] MEDS: METHADONE 5 MG TABLET PO SCH ×4 (07:59→21:43)
[2020-09-13] MEDS: ENOXAPARIN 40 MG/0.4 ML SYRINGE SQ SCH (08:54)
[2020-09-13] MEDS: DOCUSATE SODIUM 100 MG CAPSULE PO SCH ×2 (08:54→22:22)
[2020-09-13] MEDS: BACLOFEN 10 MG TABLET PO SCH ×3 (08:55→21:44)
[2020-09-13] MEDS: tiZANidine 4 MG TABLET PO SCH ×3 (08:55→21:45)
[2020-09-13] MEDS: DULoxetine 30 MG CAPSULE PO SCH (08:55)
[2020-09-13] MEDS: OXYBUTYNIN CHLORIDE 5 MG TAB.XL.24H PO SCH ×2 (08:55→21:46)
[2020-09-13] MEDS: cefTRIAXone 2 GM in DEXTROSE 5% IN WATER 50 ML IV SCH (08:56)
[2020-09-13] MEDS: POLYETHYLENE GLYCOL 3350 17 GM PACKET PO SCH (09:14)
[2020-09-13] MEDS: VANCOMYCIN 1,000 MG in 0.9 % SODIUM CHLORIDE 250 ML IV SCH ×2 (10:35→21:47)
[2020-09-13] MEDS: VANCOMYCIN 1,500 MG in 0.9 % SODIUM CHLORIDE 500 ML IV SCH (10:43)
[2020-09-13] MEDS ORDERED: 0.9 % SODIUM CHLORIDE 250 ML IV ONE ×2 (11:52→16:27)
--- NOTE | 2020-09-13 12:58 | XRay Report ---
INDICATION: Picc placement TECHNIQUE: AP portable semiupright chest x-ray COMPARISON: None FINDINGS:Right-sided PICC line with its tip in the superior vena cava. The tip of the catheter is deflected back upon itself slightly. This could possibly be straightened by pulling it back or placing a wire. Lungs:Lungs are negative. No focal pulmonary parenchymal infiltrate or mass Heart, vascular:No significant cardiomegaly. Pulmonary vascularity is normal. No pulmonary edema or pulmonary congestion Mediastinum, ricardo:No mediastinal widening. No hilar mass Pleura:No pleural fluid. No pleural-based mass or calcification Skeletal:Negative. IMPRESSION: 1. Right-sided PICC line with its tip in the superior vena cava 2. Catheter tip is slightly deflected back upon itself. Interpreted and Authenticated by: Jesus Espinal 09/13/20
[2020-09-13] MEDS: BACITRACIN IRR SCH ×2 (13:36→15:35)
[2020-09-13] MEDS: GENTAMICIN SULFATE IRR SCH ×2 (13:36→15:35)
[2020-09-13] MEDS: [UNRECOGNIZED DRUG - OTHER] IRR SCH ×2 (13:36→15:35)
[2020-09-13] MEDS: CLINDAMYCIN IRR SCH ×2 (13:36→15:35)
--- NOTE | 2020-09-13 14:27 | General Surgery Progress Note ---
SUBJECTIVE Subjective Patient information: Note initiated : 09/13/20 at 2:25 pm Service Date, if different from initiated Date: [] Patient: Zack Cardenas 50 y/o M admitted on 09/10/20 for buttock wound. Chief Complaint: [] Principal diagnosis: Right gluteal abscess Interval history: Patient appears clinically stable. The drainage from the abscess cavity has decreased. The wound base shows some early contraction. The re is no increase in surrounding erythema or induration. Constitutional Vitals: Vital Signs Temp Pulse Resp BP Pulse Ox 97.2 F 71 20 101/66 90 09/13/20 11:44 09/13/20 11:44 09/13/20 11:44 09/13/20 12:14 09/13/20 11:44 Period Temp Pulse Resp BP Sys/Parks Pulse Ox Last 24 Hr 97 F-98.8 F 53-93 16-20 64-184/42-113 90-97 Intake and Output 09/13/20 09/13/20 09/13/20 05:59 13:59 21:59 Intake Total 1280 650 Output Total 4325 450 Balance -3045 200 Intake & Output: Intake & Output 09/13/20 09/13/20 09/13/20 05:59 13:59 21:59 Intake Total 1280 650 Output Total 4325 450 Balance -3045 200 Intake: IV 50 Rocephin 2 gm In Dextrose 5% in 50 Water 50 ml @ 100 mls/hr IV DAILY [facility] Rx#:[id number] Oral 1280 600 Output: Urine Catheter Amount 4325 450 Other: Meal Breakfast Percent of Meal Consumed 25% Feeding Ability Independent Urine Appearance Clear Clear Urine Color Pale Dark Yellow A/P Assessment and plan (1) Staph aureus infection: Status: Acute Comment: Sensitivities pending. Awaiting additional culture to see if additional organisms grow. Continue Vanco and Rocephin for now. I was able to look at the wound this afternoon with Dr. Yeager. It overlies the right ischium. Large cavity with entrance. Ischium is easily palpable. I am expecting 6 weeks of IV antibiotic therapy. Depending on culture data, may be able to use Unasyn. Anaerobes may be present in addition to the staph already identified. Further recommendations to follow. Check sed rate and Flagyl at this time. (2) Quadriplegia and quadriparesis: Status: Acute Comment: C6-C7 incomplete quadriplegia. He does have upper extremity movement. Narrative A/P Narrative: Cultures are showing methicillin sensitive Staph aureus. No anaerobes are noted at this time. Will continue to monitor until placement can be secured. Time Spent With Patient Time: Total time spent is greater than 50% in coordination of care (as documented) at patient's floor/unit and/or counseling patient:
[2020-09-13] MEDS: SENNOSIDES 1 TABLET PO SCH (22:22)
[2020-09-14] MEDS: metroNIDAZOLE 500 MG TABLET PO SCH ×3 (05:17→23:13)
[2020-09-14] MEDS: 0.9 % SODIUM CHLORIDE 10 ML SYRINGE IV SCH ×8 (05:18→23:54)
[2020-09-14] MEDS: METHADONE 5 MG TABLET PO SCH ×4 (07:08→21:15)
--- NOTE | 2020-09-14 07:32 | Internal Med Progress Note ---
SUBJECTIVE Subjective Patient information: Note initiated : 09/14/20 at 7:29 am Service Date, if different from initiated Date: [] Patient: Zack Cardenas a 50 y/o M admitted on 09/10/20 for buttock wound. Chief Complaint: [] Principal diagnosis: Right gluteal abscess Interval history: Mr. Cardenas is a 50 year old male with a history of partial quadriplegia following an injury many years ago, neurogenic bladder requiring self-catheterization, history of recent left nephrectomy July 2020, recurrent soft tissue infections, recently started on Bactrim for UTI, who presented to the emergency department for right gluteal cellulitis. Further work-up in the ED included a CT abdomen pelvis without contrast revealed subcutaneous soft tissue abnormality in the right gluteal region extending to the perineum most consistent with phlegmon or maturing abscess. Patient was admitted for antibiotics and surgery consultation. 09/10 Surgery planning on I&D today, urology consulting and planning for cystoscopy in OR to evaluate CT findings in bladder. Increased Methadone to TID plus HS prn dosing. Changed code status to DNR per patient's request. Continuos on Vancomycin IV per Rx and Ceftriaxone. 09/11 Large gluteal abscess with extension to ramus seen during surgery yesterday. Discussed findings with surgery and no clear evidence of clinical osteomyelitis. No unexpected cystoscopy findings per urology. Vancomycin trough elevated. Wound care surgery consulted. Call out to [facility] regarding possible osteomyelitis. 09/12 No new complaints or overnight event. Pending final wound cultures. 09/13 No new complaints other than him stating is not getting his home methadone regimen. He says he 640 mg daily and pressure all throughout the day and states not getting his bedtime dose. Cultures growing MSSA. PICC today. *Discussed the case with Dr. Rodriguez after wound cultures grew MSSA. Also concern for anaerobes and so Dr. Rodriguez's recommendations were 6 weeks of IV Unasyn. 09/14 Patient slept better. No new complaints other than he feels like is getting thrush again. Review of Systems: denies headache/fever/chills/nausea/vomiting/chest or abdominal pain/cough/dyspnea/diarrhea. Otherwise see above. Constitutional Vitals: Vital Signs Temp Pulse Resp BP Pulse Ox 98.1 F 59 L 18 124/93 92 09/14/20 06:47 09/14/20 06:47 09/14/20 06:47 09/14/20 06:47 09/14/20 06:47 Period Temp Pulse Resp BP Sys/Parks Pulse Ox Last 24 Hr 97.2 F-98.7 F 58-90 18-20 76-174/42-108 89-92 Intake and Output 09/13/20 09/14/20 09/14/20 21:59 05:59 13:59 Intake Total 2546 480 250 Output Total 1500 2050 Balance 1046 -1570 250 Weight 79.861 kg Intake & Output: Intake & Output 09/13/20 09/14/20 09/14/20 21:59 05:59 13:59 Intake Total 2546 480 250 Output Total 1500 2050 Balance 1046 -1570 250 Weight 79.861 kg Intake: Nourishment/Supplement quantity 236 (ml) IV 750 250 Sodium Chloride 0.9% 250 ml @ 500 Wide Open IV [facility] Rx#: [id number] Vancomycin 1,000 mg In Sodium 250 250 Chloride 0.9% 250 ml @ 250 mls/ hr IV Q12H [facility] Rx#:[id number] Oral 1560 480 Output: Urine Catheter Amount 1500 1400 Uretheral (Lehman) 1000 Void Amount 650 Other: Meal Dinner Percent of Meal Consumed 90% Feeding Ability Assist with Tray Set Up Nourishment/Supplement name Adelso Urine Appearance Clear Clear Uretheral (Lehman) Clear Urine Color Bright Yellow Dark Yellow Uretheral (Lehman) Bright Yellow Urine Odor Uretheral (Lehman) Normal Exam: General: Alert, Awake, No acute Distress Eyes/N/T: EOMI, Head/Neck: neck supple, CV: RRR, No murmurs, Pulm: Clear b/l, no wheezing/rhonchi/rales Abd: soft, nontender, +BS x4 Ext: no clubbing/cyanosis/edema, gluteal surgical dressing in place Neuro: Alert, no focal deficits, moves all extremities, Skin: warm/dry OBJ DATA Labs CBC & Chem 7: 09/12/20 05:38 09/12/20 05:38 Labs: Abnormal Lab Results 09/12/20 09/12/20 09/11/20 05:38 05:38 05:55 RBC 4.25 L Hgb 12.7 L Hct 39.6 L RDW 15.4 H ESR 97 H Anion Gap 7.0 L Creatinine 0.5 L 0.5 L Glucose 147 H Phosphorus 2.3 L 2.3 L Alkaline Phosphatase 142 H 127 H Albumin 2.8 L 2.4 L Globulin 4.2 H 4.2 H Albumin/Globulin Ratio 0.7 L 0.6 L Triglycerides 199 H Meds: Medications Baclofen (Baclofen 10 Mg Tablet) 20 mg PO TID [facility] Last Admin: 09/13/20 21:44 Dose: 20 mg Documented by: Bisacodyl (Bisacodyl 10 Mg Supp.Rect) 10 mg NC Q48H [facility] Last Admin: 09/12/20 11:22 Dose: Not Given Documented by: Docusate Sodium (Docusate Sodium 100 Mg Capsule) 100 mg PO BID [facility] Last Admin: 09/13/20 22:22 Dose: Not Given Documented by: Duloxetine HCl (Duloxetine 30 Mg Capsule) 60 mg PO DAILY [facility] Last Admin: 09/13/20 08:55 Dose: 60 mg Documented by: Enalaprilat (Enalaprilat 1.25 Mg/Ml Vial) 0 mg IV Q2HP PRN PRN Reason: Hypertension Last Admin: 09/12/20 23:54 Dose: 1.25 mg Documented by: Enoxaparin Sodium (Enoxaparin 40 Mg/0.4 Ml Syringe) 40 mg SQ DAILY [facility] Last Admin: 09/13/20 08:54 Dose: 40 mg Documented by: Heparin Sodium (Porcine) (Heparin Flush 10 Units/Ml 5 Ml Syringe) 2 ml IV Q12 [facility] Last Admin: 09/13/20 22:24 Dose: Not Given Documented by: Hydromorphone HCl (Hydromorphone 1 Mg/Ml Syringe) 0.5 mg IV Q4HP PRN; Protocol PRN Reason: Per Pain Protocol Last Admin: 09/12/20 23:45 Dose: 0.5 mg Documented by: Ceftriaxone Sodium 2 gm/ (Dextrose) 50 mls @ 100 mls/hr IV DAILY [facility]; Protocol Last Infusion: 09/13/20 10:26 Dose: Infused Documented by: Gentamicin Sulfate 80 mg/Clindamycin Phosphate 600 mg/Bacitracin 50,000 unit/ Non- Formulary Medication 6 mls @ 0 mls/hr IRR Q24H [facility] Last Admin: 09/13/20 15:35 Dose: Not Given Documented by: Vancomycin HCl 1,000 mg/ (Sodium Chloride) 250 mls @ 250 mls/hr IV Q12H [facility] Last Infusion: 09/14/20 06:49 Dose: Infused Documented by: Lactulose (Lactulose 20 Gm/30 Ml Oral.Linda) 10 gm PO DAILYP PRN PRN Reason: Constipation Methadone HCl (Methadone 5 Mg Tablet) 30 mg PO TID@0700,1200,1700 [facility] Last Admin: 09/14/20 07:08 Dose: 30 mg Documented by: Methadone HCl (Methadone 5 Mg Tablet) 50 mg PO [facility] Last Admin: 09/13/20 21:43 Dose: 50 mg Documented by: Metronidazole (Metronidazole 500 Mg Tablet) 500 mg PO Q8 [facility]; Protocol Stop: 09/18/20 21:59 Last Admin: 09/14/20 05:17 Dose: 500 mg Documented by: Naloxone HCl (Naloxone Hcl 0.4 Mg/Ml Vial) 0.2 mg IV Q5M PRN PRN Reason: Opiate Reversal Ondansetron HCl (Ondansetron 4 Mg/2 Ml Vial) 4 mg IV Q6HP PRN PRN Reason: Nausea And Vomiting Oxybutynin Chloride (Oxybutynin Chloride 5 Mg Tab.Xl.24h) 10 mg PO BID [facility] Last Admin: 09/13/20 21:46 Dose: 10 mg Documented by: Oxycodone/Acetaminophen (Oxycodone/Apap 10/325mg Tablet) 1 tab PO Q6HP PRN; Protocol PRN Reason: Per Pain Protocol Last Admin: 09/13/20 10:02 Dose: 1 tab Documented by: Polyethylene Glycol (Polyethylene Glycol 3350 17 Gm Packet) 17 gm PO DAILY [facility] Last Admin: 09/13/20 09:14 Dose: Not Given Documented by: Senna (Sennosides 1 Tablet) 2 tab PO [facility] Last Admin: 09/13/20 22:22 Dose: Not Given Documented by: Sodium Chloride (0.9 % Sodium Chloride 10 Ml Syringe) 10 ml IV Q8 [facility] Last Admin: 09/14/20 05:18 Dose: 10 ml Documented by: Sodium Chloride (0.9 % Sodium Chloride 10 Ml Syringe) 10 ml IV Q8 [facility] Last Admin: 09/14/20 05:19 Dose: 10 ml Documented by: Sodium Chloride (0.9 % Sodium Chloride 10 Ml Syringe) 10 ml IV UD PRN PRN Reason: FLUSH Sodium Chloride (0.9 % Sodium Chloride 10 Ml Syringe) 10 ml IV Q12 [facility] Last Admin: 09/13/20 21:52 Dose: 10 ml Documented by: Tizanidine HCl (Tizanidine 4 Mg Tablet) 8 mg PO TID [facility] Last Admin: 09/13/20 21:45 Dose: 8 mg Documented by: Vancomycin HCl (Vancomycin Per Pharmacy) 1 order IV UD [facility]; Protocol A/P Narrative A/P Narrative: A: #Large gluteal abscess w/soft tissue necrosis extending to right ischial ramus: (s/p I&D 09/10) -Concern for possible osteomyelitis of right ischial ramus -cx growing MSSA #Partial quadriplegia: lives at home, parents are his caregivers #Neurogenic bladder: self catheterizes at home #Recent UTI: treated with Bactrim #Chronic pain w/opioid dependence: on high dose methadone at home #Hx of left ureteral transitional cell carcinoma: s/p nephroureterectomy July 2020 #Pressure injury on the right knee: present on admission, from wheelchair #Constipation Plan -per ID will give Unasyn, 6 weeks of IV therapy -General surgery following -Wound care surgery. -Following surgical cultures -Continue duloxetine, baclofen, tizanidine, methadone, Percocet. -Bowel regimen -Remove lehman catheter when able. -awaiting placement -PPx: lovenox CODE STATUS: DNR per patient's request. Time Spent With Patient Time: Total time spent is greater than 50% in coordination of care (as documented) at patient's floor/unit and/or counseling patient: QUALITY Stroke Symptom Onset Unknown: No VTE Deep Vein Thrombosis/Pulmonary Embolism Present on Admission: No
[2020-09-14] MEDS: NYSTATIN 500,000 UNITS/5 ML ORAL.SUSP PO SCH ×4 (08:45→21:16)
[2020-09-14] MEDS: DULoxetine 30 MG CAPSULE PO SCH (08:45)
[2020-09-14] MEDS: tiZANidine 4 MG TABLET PO SCH ×3 (08:46→21:16)
[2020-09-14] MEDS: BACLOFEN 10 MG TABLET PO SCH ×3 (08:46→21:16)
[2020-09-14] MEDS: OXYBUTYNIN CHLORIDE 5 MG TAB.XL.24H PO SCH ×2 (08:46→21:17)
[2020-09-14] MEDS: ENOXAPARIN 40 MG/0.4 ML SYRINGE SQ SCH (08:47)
[2020-09-14] MEDS: cefTRIAXone 2 GM in DEXTROSE 5% IN WATER 50 ML IV SCH (08:47)
[2020-09-14] MEDS: POLYETHYLENE GLYCOL 3350 17 GM PACKET PO SCH (08:59)
[2020-09-14] MEDS: DOCUSATE SODIUM 100 MG CAPSULE PO SCH ×2 (09:16→21:00)
[2020-09-14] MEDS: VANCOMYCIN 1,000 MG in 0.9 % SODIUM CHLORIDE 250 ML IV SCH ×2 (10:18→21:17)
[2020-09-14] MEDS: BISACODYL 10 MG SUPP.RECT PR SCH (11:48)
[2020-09-14] MEDS: GENTAMICIN SULFATE IRR SCH (14:38)
[2020-09-14] MEDS: BACITRACIN IRR SCH (14:38)
[2020-09-14] MEDS: [UNRECOGNIZED DRUG - OTHER] IRR SCH (14:38)
[2020-09-14] MEDS: CLINDAMYCIN IRR SCH (14:38)
[2020-09-14] MEDS: SENNOSIDES 1 TABLET PO SCH (21:00)
[2020-09-15] MEDS: metroNIDAZOLE 500 MG TABLET PO SCH ×3 (05:51→22:37)
[2020-09-15] MEDS: 0.9 % SODIUM CHLORIDE 10 ML SYRINGE IV SCH ×9 (05:52→22:37)
[2020-09-15] MEDS: METHADONE 5 MG TABLET PO SCH ×4 (07:04→20:09)
[2020-09-15] MEDS: cefTRIAXone 2 GM in DEXTROSE 5% IN WATER 50 ML IV SCH (08:23)
[2020-09-15] MEDS: ENOXAPARIN 40 MG/0.4 ML SYRINGE SQ SCH (08:24)
[2020-09-15] MEDS: DULoxetine 30 MG CAPSULE PO SCH (08:24)
[2020-09-15] MEDS: DOCUSATE SODIUM 100 MG CAPSULE PO SCH ×2 (08:25→20:11)
[2020-09-15] MEDS: BACLOFEN 10 MG TABLET PO SCH ×3 (08:25→20:08)
[2020-09-15] MEDS: OXYBUTYNIN CHLORIDE 5 MG TAB.XL.24H PO SCH ×2 (08:25→20:08)
[2020-09-15] MEDS: NYSTATIN 500,000 UNITS/5 ML ORAL.SUSP PO SCH ×4 (08:25→20:11)
[2020-09-15] MEDS: tiZANidine 4 MG TABLET PO SCH ×3 (08:25→20:08)
[2020-09-15] MEDS: POLYETHYLENE GLYCOL 3350 17 GM PACKET PO SCH (08:26)
[2020-09-15] MEDS: VANCOMYCIN 1,000 MG in 0.9 % SODIUM CHLORIDE 250 ML IV SCH (09:12)
--- NOTE | 2020-09-15 15:45 | Internal Med Progress Note ---
"SUBJECTIVE Subjective Patient information: Note initiated : 09/15/20 at 3:41 pm Service Date, if different from initiated Date: [] Patient: Zack Cardenas a 50 y/o M admitted on 09/10/20 for buttock wound. Chief Complaint: [] Principal diagnosis: Right gluteal abscess Interval history: Mr. Cardenas is a 50 year old male with a history of partial quadriplegia following an injury many years ago, neurogenic bladder requiring self-catheterization, history of recent left nephrectomy July 2020, recurrent soft tissue infections, recently started on Bactrim for UTI, who presented to the emergency department for right gluteal cellulitis. Further work-up in the ED included a CT abdomen pelvis without contrast revealed subcutaneous soft tissue abnormality in the right gluteal region extending to the perineum most consistent with phlegmon or maturing abscess. Patient was admitted for antibiotics and surgery consultation. 09/10 Surgery planning on I&D today, urology consulting and planning for cystoscopy in OR to evaluate CT findings in bladder. Increased Methadone to TID plus HS prn dosing. Changed code status to DNR per patient's request. Continuos on Vancomycin IV per Rx and Ceftriaxone. 09/11 Large gluteal abscess with extension to ramus seen during surgery yesterday. Discussed findings with surgery and no clear evidence of clinical osteomyelitis. No unexpected cystoscopy findings per urology. Vancomycin trough elevated. Wound care surgery consulted. Call out to Norman regarding possible osteomyelitis. 09/12 No new complaints or overnight event. Pending final wound cultures. 09/13 No new complaints other than him stating is not getting his home methadone regimen. He says he 640 mg daily and pressure all throughout the day and states not getting his bedtime dose. Cultures growing MSSA. PICC today. *Discussed the case with Dr. Rodriguez after wound cultures grew MSSA. Also concern for anaerobes and so Dr. Rodriguez's recommendations were 6 weeks of IV Unasyn. 09/14 Patient slept better. No new complaints other than he feels like is getting thrush again. 09/15 Patient doing well. No new complaints or issues. Awaiting placement still. Has been working with [employer] and still awaiting their answer. Review of Systems: denies headache/fever/chills/nausea/vomiting/chest or abdominal pain/cough/dyspnea/diarrhea. Otherwise see above. Constitutional Vitals: Vital Signs Temp Pulse Resp BP Pulse Ox 98.4 F 68 18 137/69 90 09/15/20 12:00 09/15/20 12:00 09/15/20 12:00 09/15/20 12:00 09/15/20 12:00 Period Temp Pulse Resp BP Sys/Parks Pulse Ox Last 24 Hr 97.7 F-98.6 F 60-86 16-20 92-137/66-80 89-91 Intake and Output 09/15/20 09/15/20 09/15/20 05:59 13:59 21:59 Intake Total 240 1510 Output Total 1500 Balance -1260 1510 Intake & Output: Intake & Output 09/15/20 09/15/20 09/15/20 05:59 13:59 21:59 Intake Total 240 1510 Output Total 1500 Balance -1260 1510 Intake: IV 550 Vancomycin 1,000 mg In Sodium 500 Chloride 0.9% 250 ml @ 250 mls/ hr IV Q12H [facility] Rx#:[id number] Rocephin 2 gm In Dextrose 5% in 50 Water 50 ml @ 100 mls/hr IV DAILY [facility] Rx#:[id number] Oral 240 960 Output: Urine Catheter Amount 1500 Other: Meal Breakfast Percent of Meal Consumed 50% Feeding Ability Assist with Tray Set Up Urine Appearance Uretheral (Lehman) Clear Urine Color Uretheral (Lehman) Bright Yellow Urine Odor Uretheral (Lehman) Normal Exam: General: Alert, Awake, No acute Distress Eyes/N/T: EOMI, Head/Neck: neck supple, CV: RRR, No murmurs, Pulm: Clear b/l, no wheezing/rhonchi/rales Abd: soft, nontender, +BS x4 Ext: no clubbing/cyanosis/edema, gluteal surgical dressing in place Neuro: Alert, no focal deficits, moves all extremities, Skin: warm/dry OBJ DATA Labs CBC & Chem 7: 09/12/20 05:38 09/12/20 05:38 Meds: Medications Baclofen (Baclofen 10 Mg Tablet) 20 mg PO TID [facility] Last Admin: 09/15/20 08:25 Dose: 20 mg Documented by: Bisacodyl (Bisacodyl 10 Mg Supp.Rect) 10 mg HI Q48H [facility] Last Admin: 09/14/20 11:48 Dose: Not Given Documented by: Docusate Sodium (Docusate Sodium 100 Mg Capsule) 100 mg PO BID [facility] Last Admin: 09/15/20 08:25 Dose: Not Given Documented by: Duloxetine HCl (Duloxetine 30 Mg Capsule) 60 mg PO DAILY [facility] Last Admin: 09/15/20 08:24 Dose: 60 mg Documented by: Enalaprilat (Enalaprilat 1.25 Mg/Ml Vial) 0 mg IV Q2HP PRN PRN Reason: Hypertension Last Admin: 09/12/20 23:54 Dose: 1.25 mg Documented by: Enoxaparin Sodium (Enoxaparin 40 Mg/0.4 Ml Syringe) 40 mg SQ DAILY [facility] Last Admin: 09/15/20 08:24 Dose: 40 mg Documented by: Heparin Sodium (Porcine) (Heparin Flush 10 Units/Ml 5 Ml Syringe) 2 ml IV Q12 [facility] Last Admin: 09/15/20 10:26 Dose: 2 ml Documented by: Hydromorphone HCl (Hydromorphone 1 Mg/Ml Syringe) 0.5 mg IV Q4HP PRN; Protocol PRN Reason: Per Pain Protocol Last Admin: 09/12/20 23:45 Dose: 0.5 mg Documented by: Ceftriaxone Sodium 2 gm/ (Dextrose) 50 mls @ 100 mls/hr IV DAILY [facility]; Protocol Last Infusion: 09/15/20 11:28 Dose: Infused Documented by: Gentamicin Sulfate 80 mg/Clindamycin Phosphate 600 mg/Bacitracin 50,000 unit/ Non- Formulary Medication 6 mls @ 0 mls/hr IRR Q24H [facility] Last Admin: 09/14/20 14:38 Dose: 80 mls/hr Documented by: Vancomycin HCl 1,000 mg/ (Sodium Chloride) 250 mls @ 250 mls/hr IV Q12H [facility] Last Infusion: 09/15/20 11:28 Dose: Infused Documented by: Lactulose (Lactulose 20 Gm/30 Ml Oral.Linda) 10 gm PO DAILYP PRN PRN Reason: Constipation Methadone HCl (Methadone 5 Mg Tablet) 30 mg PO TID@0700,1200,1700 [facility] Last Admin: 09/15/20 11:56 Dose: 30 mg Documented by: Methadone HCl (Methadone 5 Mg Tablet) 50 mg PO HS [facility] Last Admin: 09/14/20 21:15 Dose: 50 mg Documented by: Metronidazole (Metronidazole 500 Mg Tablet) 500 mg PO Q8 [facility]; Protocol Stop: 09/18/20 21:59 Last Admin: 09/15/20 13:32 Dose: 500 mg Documented by: Naloxone HCl (Naloxone Hcl 0.4 Mg/Ml Vial) 0.2 mg IV Q5M PRN PRN Reason: Opiate Reversal Nystatin (Nystatin 500,000 Units/5 Ml Oral.Susp) 500,000 units PO QID [facility] Last Admin: 09/15/20 13:32 Dose: 500,000 units Documented by: Ondansetron HCl (Ondansetron 4 Mg/2 Ml Vial) 4 mg IV Q6HP PRN PRN Reason: Nausea And Vomiting Oxybutynin Chloride (Oxybutynin Chloride 5 Mg Tab.Xl.24h) 10 mg PO BID [facility] Last Admin: 09/15/20 08:25 Dose: 10 mg Documented by: Oxycodone/Acetaminophen (Oxycodone/Apap 10/325mg Tablet) 1 tab PO Q6HP PRN; Protocol PRN Reason: Per Pain Protocol Last Admin: 09/13/20 10:02 Dose: 1 tab Documented by: Polyethylene Glycol (Polyethylene Glycol 3350 17 Gm Packet) 17 gm PO DAILY [facility] Last Admin: 09/15/20 08:26 Dose: Not Given Documented by: Senna (Sennosides 1 Tablet) 2 tab PO [facility] Last Admin: 09/14/20 21:00 Dose: Not Given Documented by: Sodium Chloride (0.9 % Sodium Chloride 10 Ml Syringe) 10 ml IV Q8 [facility] Last Admin: 09/15/20 05:52 Dose: 10 ml Documented by: Sodium Chloride (0.9 % Sodium Chloride 10 Ml Syringe) 10 ml IV Q8 [facility] Last Admin: 09/15/20 06:27 Dose: Not Given Documented by: Sodium Chloride (0.9 % Sodium Chloride 10 Ml Syringe) 10 ml IV UD PRN PRN Reason: FLUSH Sodium Chloride (0.9 % Sodium Chloride 10 Ml Syringe) 10 ml IV Q12 [facility] Last Admin: 09/15/20 11:21 Dose: 10 ml Documented by: Tizanidine HCl (Tizanidine 4 Mg Tablet) 8 mg PO TID [facility] Last Admin: 09/15/20 08:25 Dose: 8 mg Documented by: Vancomycin HCl (Vancomycin Per Pharmacy) 1 order IV UD NELI; Protocol A/P Narrative A/P Narrative: A: #Large gluteal abscess w/soft tissue necrosis extending to right ischial ramus: (s/p I&D 09/10) -Concern for possible osteomyelitis of right ischial ramus -cx growing MSSA #Partial quadriplegia: lives at home, parents are his caregivers #Neurogenic bladder: self catheterizes at home #Recent UTI: treated with Bactrim #Chronic pain w/opioid dependence: on high dose methadone at home #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 -Bowel regimen -Remove lehman catheter when able. -awaiting placement -PPx: lovenox/home ppi CODE STATUS: DNR per patient's request. Time Spent With Patient Time: Total time spent is greater than 50% in coordination of care (as documented) at patient's floor/unit and/or counseling patient: QUALITY Stroke Symptom Onset Unknown: No VTE Deep Vein Thrombosis/Pulmonary Embolism Present on Admission: No"
[2020-09-15] MEDS: CLINDAMYCIN IRR SCH (16:36)
[2020-09-15] MEDS: GENTAMICIN SULFATE IRR SCH (16:36)
[2020-09-15] MEDS: [UNRECOGNIZED DRUG - OTHER] IRR SCH (16:36)
[2020-09-15] MEDS: BACITRACIN IRR SCH (16:36)
[2020-09-15] MEDS: OMEPRAZOLE 20 MG CAPSULE PO SCH (17:32)
[2020-09-15] MEDS: SENNOSIDES 1 TABLET PO SCH (20:07)
[2020-09-16] MEDS: metroNIDAZOLE 500 MG TABLET PO SCH ×2 (06:08→12:55)
[2020-09-16] MEDS: 0.9 % SODIUM CHLORIDE 10 ML SYRINGE IV SCH ×3 (06:09→08:22)
[2020-09-16] MEDS: METHADONE 5 MG TABLET PO SCH ×2 (07:19→12:01)
[2020-09-16] MEDS: OMEPRAZOLE 20 MG CAPSULE PO SCH (07:19)
[2020-09-16] MEDS: ENOXAPARIN 40 MG/0.4 ML SYRINGE SQ SCH (08:17)
[2020-09-16] MEDS: cefTRIAXone 2 GM in DEXTROSE 5% IN WATER 50 ML IV SCH (08:17)
[2020-09-16] MEDS: OXYBUTYNIN CHLORIDE 5 MG TAB.XL.24H PO SCH (08:18)
[2020-09-16] MEDS: tiZANidine 4 MG TABLET PO SCH (08:18)
[2020-09-16] MEDS: BACLOFEN 10 MG TABLET PO SCH (08:19)
[2020-09-16] MEDS: NYSTATIN 500,000 UNITS/5 ML ORAL.SUSP PO SCH ×2 (08:19→12:55)
[2020-09-16] MEDS: DULoxetine 30 MG CAPSULE PO SCH (08:19)
[2020-09-16] MEDS: POLYETHYLENE GLYCOL 3350 17 GM PACKET PO SCH (12:55)
[2020-09-16] MEDS: DOCUSATE SODIUM 100 MG CAPSULE PO SCH (12:55)
[2020-09-16] MEDS: GENTAMICIN SULFATE IRR SCH (13:39)
[2020-09-16] MEDS: BACITRACIN IRR SCH (13:39)
[2020-09-16] MEDS: [UNRECOGNIZED DRUG - OTHER] IRR SCH (13:39)
[2020-09-16] MEDS: CLINDAMYCIN IRR SCH (13:39)
--- NOTE | 2020-09-16 13:56 | General Surgery Progress Note ---
SUBJECTIVE Subjective Patient information: Note initiated : 09/16/20 at 1:51 pm Service Date, if different from initiated Date: [] Patient: Zack Cardenas 50 y/o M admitted on 09/10/20 for buttock wound. Chief Complaint: [] Principal diagnosis: Right gluteal abscess Additional PMFSH (Level 3 Only): Saw patient along with nurse and patient's mother in the room. Examined and palpated wound and discussed wound care with evin peña and his mother. Constitutional Vitals: Vital Signs Temp Pulse Resp BP Pulse Ox 97.4 F 69 14 100/66 90 09/16/20 12:00 09/16/20 12:00 09/16/20 12:00 09/16/20 12:00 09/16/20 12:00 Period Temp Pulse Resp BP Sys/Parks Pulse Ox Last 24 Hr 97.2 F-98.3 F 57-69 14-24 99-132/62-78 90-92 Intake and Output 09/15/20 09/16/20 09/16/20 21:59 05:59 13:59 Intake Total 540 900 290 Output Total 750 1550 1200 Balance -210 -650 -910 Weight 174 lb 9.6 oz Intake & Output: Intake & Output 09/15/20 09/16/20 09/16/20 21:59 05:59 13:59 Intake Total 540 900 290 Output Total 750 1550 1200 Balance -210 -650 -910 Weight 174 lb 9.6 oz Intake: IV 50 Rocephin 2 gm In Dextrose 5% in 50 Water 50 ml @ 100 mls/hr IV DAILY [facility] Rx#:[id number] Oral 540 900 240 Output: Urine Catheter Amount 750 1550 1200 Uretheral (Car) 1200 Other: Meal Breakfast Percent of Meal Consumed 100% Urine Appearance Clear Uretheral (Car) Clear Clear Urine Color Light Felicia Bright Yellow Uretheral (Car) Dark Yellow Bright Yellow Urine Odor Strong General appearance: cooperative and no acute distress Exam: No changes in clinical / SASCHA. L/E: OPEN wound over ischial tuberosity and in close proximity to anal orifice. NOT suitable for wound VAC. A/P Time Spent With Patient Time: Total time spent is greater than 50% in coordination of care (as documented) at patient's floor/unit and/or counseling patient:
--- NOTE | 2020-09-16 14:34 | Internal Med Progress Note ---
SUBJECTIVE Subjective Patient information: Note initiated : 09/16/20 at 2:32 pm Service Date, if different from initiated Date: [] Patient: Zack Cardenas a 50 y/o M admitted on 09/10/20 for buttock wound. Chief Complaint: [] Principal diagnosis: Right gluteal abscess Interval history: Mr. Cardenas is a 50 year old male with a history of partial quadriplegia following an injury many years ago, neurogenic bladder requiring self-catheterization, history of recent left nephrectomy July 2020, recurrent soft tissue infections, recently started on Bactrim for UTI, who presented to the emergency department for right gluteal cellulitis. Further work-up in the ED included a CT abdomen pelvis without contrast revealed subcutaneous soft tissue abnormality in the right gluteal region extending to the perineum most consistent with phlegmon or maturing abscess. Patient was admitted for antibiotics and surgery consultation. 09/10 Surgery planning on I&D today, urology consulting and planning for cystoscopy in OR to evaluate CT findings in bladder. Increased Methadone to TID plus HS prn dosing. Changed code status to DNR per patient's request. Continuos on Vancomycin IV per Rx and Ceftriaxone. 09/11 Large gluteal abscess with extension to ramus seen during surgery yesterday. Discussed findings with surgery and no clear evidence of clinical osteomyelitis. No unexpected cystoscopy findings per urology. Vancomycin trough elevated. Wound care surgery consulted. Call out to Norman regarding possible osteomyelitis. 09/12 No new complaints or overnight event. Pending final wound cultures. 09/13 No new complaints other than him stating is not getting his home methadone regimen. He says he 640 mg daily and pressure all throughout the day and states not getting his bedtime dose. Cultures growing MSSA. PICC today. *Discussed the case with Dr. Rodriguez after wound cultures grew MSSA. Also concern for anaerobes and so Dr. Rodriguez's recommendations were 6 weeks of IV Unasyn. 09/14 Patient slept better. No new complaints other than he feels like is getting thrush again. 09/15 Patient doing well. No new complaints or issues. Awaiting placement still. Has been working with [employer] and still awaiting their answer. 09/16 No changes, awaiting placement. Review of Systems: denies headache/fever/chills/nausea/vomiting/chest or abdominal pain/cough/dyspnea/diarrhea. Otherwise see above. Constitutional Vitals: Vital Signs Temp Pulse Resp BP Pulse Ox 97.4 F 69 14 100/66 90 09/16/20 12:00 09/16/20 12:00 09/16/20 12:00 09/16/20 12:00 09/16/20 12:00 Period Temp Pulse Resp BP Sys/Parks Pulse Ox Last 24 Hr 97.2 F-98.3 F 57-69 14-24 99-132/62-78 90-92 Intake and Output 09/16/20 09/16/20 09/16/20 05:59 13:59 21:59 Intake Total 900 290 Output Total 1550 1200 Balance -650 -910 Intake & Output: Intake & Output 09/16/20 09/16/20 09/16/20 05:59 13:59 21:59 Intake Total 900 290 Output Total 1550 1200 Balance -650 -910 Intake: IV 50 Rocephin 2 gm In Dextrose 5% in 50 Water 50 ml @ 100 mls/hr IV DAILY [facility] Rx#:[id number] Oral 900 240 Output: Urine Catheter Amount 1550 1200 Uretheral (Lehman) 1200 Other: Meal Breakfast Percent of Meal Consumed 100% Urine Appearance Clear Uretheral (Lehman) Clear Urine Color Bright Yellow Uretheral (Lehman) Bright Yellow Exam: General: Alert, Awake, No acute Distress Eyes/N/T: EOMI, Head/Neck: neck supple, CV: RRR, No murmurs, Pulm: Clear b/l, no wheezing/rhonchi/rales Abd: soft, nontender, +BS x4 Ext: no clubbing/cyanosis/edema, gluteal surgical dressing in place Neuro: Alert, no focal deficits, moves all extremities, Skin: warm/dry OBJ DATA Labs CBC & Chem 7: 09/12/20 05:38 09/12/20 05:38 Meds: Medications Baclofen (Baclofen 10 Mg Tablet) 20 mg PO TID [facility] Last Admin: 09/16/20 08:19 Dose: 20 mg Documented by: Bisacodyl (Bisacodyl 10 Mg Supp.Rect) 10 mg CO Q48H [facility] Last Admin: 09/14/20 11:48 Dose: Not Given Documented by: Docusate Sodium (Docusate Sodium 100 Mg Capsule) 100 mg PO BID [facility] Last Admin: 09/16/20 12:55 Dose: Not Given Documented by: Duloxetine HCl (Duloxetine 30 Mg Capsule) 60 mg PO DAILY [facility] Last Admin: 09/16/20 08:19 Dose: 60 mg Documented by: Enalaprilat (Enalaprilat 1.25 Mg/Ml Vial) 0 mg IV Q2HP PRN PRN Reason: Hypertension Last Admin: 09/12/20 23:54 Dose: 1.25 mg Documented by: Enoxaparin Sodium (Enoxaparin 40 Mg/0.4 Ml Syringe) 40 mg SQ DAILY [facility] Last Admin: 09/16/20 08:17 Dose: 40 mg Documented by: Heparin Sodium (Porcine) (Heparin Flush 10 Units/Ml 5 Ml Syringe) 2 ml IV Q12 [facility] Last Admin: 09/15/20 20:11 Dose: 2 ml Documented by: Hydromorphone HCl (Hydromorphone 1 Mg/Ml Syringe) 0.5 mg IV Q4HP PRN; Protocol PRN Reason: Per Pain Protocol Last Admin: 09/12/20 23:45 Dose: 0.5 mg Documented by: Ceftriaxone Sodium 2 gm/ (Dextrose) 50 mls @ 100 mls/hr IV DAILY [facility]; Protocol Last Infusion: 09/16/20 09:26 Dose: Infused Documented by: Gentamicin Sulfate 80 mg/Clindamycin Phosphate 600 mg/Bacitracin 50,000 unit/ Non- Formulary Medication 6 mls @ 0 mls/hr IRR Q24H [facility] Last Admin: 09/16/20 13:39 Dose: 80 mls/hr Documented by: Lactulose (Lactulose 20 Gm/30 Ml Oral.Linda) 10 gm PO DAILYP PRN PRN Reason: Constipation Methadone HCl (Methadone 5 Mg Tablet) 30 mg PO TID@0700,1200,1700 [facility] Last Admin: 09/16/20 12:01 Dose: 30 mg Documented by: Methadone HCl (Methadone 5 Mg Tablet) 50 mg PO HS [facility] Last Admin: 09/15/20 20:09 Dose: 50 mg Documented by: Metronidazole (Metronidazole 500 Mg Tablet) 500 mg PO Q8 [facility]; Protocol Stop: 09/18/20 21:59 Last Admin: 09/16/20 12:55 Dose: 500 mg Documented by: Naloxone HCl (Naloxone Hcl 0.4 Mg/Ml Vial) 0.2 mg IV Q5M PRN PRN Reason: Opiate Reversal Nystatin (Nystatin 500,000 Units/5 Ml Oral.Susp) 500,000 units PO QID [facility] Last Admin: 09/16/20 12:55 Dose: 500,000 units Documented by: Omeprazole (Omeprazole 20 Mg Capsule) 20 mg PO ACB [facility] Last Admin: 09/16/20 07:19 Dose: 20 mg Documented by: Ondansetron HCl (Ondansetron 4 Mg/2 Ml Vial) 4 mg IV Q6HP PRN PRN Reason: Nausea And Vomiting Oxybutynin Chloride (Oxybutynin Chloride 5 Mg Tab.Xl.24h) 10 mg PO BID [facility] Last Admin: 09/16/20 08:18 Dose: 10 mg Documented by: Oxycodone/Acetaminophen (Oxycodone/Apap 10/325mg Tablet) 1 tab PO Q6HP PRN; Protocol PRN Reason: Per Pain Protocol Last Admin: 09/13/20 10:02 Dose: 1 tab Documented by: Polyethylene Glycol (Polyethylene Glycol 3350 17 Gm Packet) 17 gm PO DAILY [facility] Last Admin: 09/16/20 12:55 Dose: Not Given Documented by: Senna (Sennosides 1 Tablet) 2 tab PO HS [facility] Last Admin: 09/15/20 20:07 Dose: 2 tab Documented by: Sodium Chloride (0.9 % Sodium Chloride 10 Ml Syringe) 10 ml IV Q8 [facility] Last Admin: 09/16/20 06:09 Dose: 10 ml Documented by: Sodium Chloride (0.9 % Sodium Chloride 10 Ml Syringe) 10 ml IV Q8 [facility] Last Admin: 09/16/20 06:09 Dose: 10 ml Documented by: Sodium Chloride (0.9 % Sodium Chloride 10 Ml Syringe) 10 ml IV UD PRN PRN Reason: FLUSH Sodium Chloride (0.9 % Sodium Chloride 10 Ml Syringe) 10 ml IV Q12 [facility] Last Admin: 09/16/20 08:22 Dose: 10 ml Documented by: Tizanidine HCl (Tizanidine 4 Mg Tablet) 8 mg PO TID [facility] Last Admin: 09/16/20 08:18 Dose: 8 mg Documented by: A/P Narrative A/P Narrative: A: #Large gluteal abscess w/soft tissue necrosis extending to right ischial ramus: (s/p I&D 09/10) -cx growing MSSA #Partial quadriplegia: lives at home, parents are his caregivers #Neurogenic bladder: self catheterizes at home #Recent UTI: treated with Bactrim #Chronic pain w/opioid dependence: on high dose methadone at home #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 -Bowel regimen -Remove lehman catheter when able. -awaiting placement -PPx: lovenox/home ppi CODE STATUS: DNR per patient's request. Time Spent With Patient Time: Total time spent is greater than 50% in coordination of care (as documented) at patient's floor/unit and/or counseling patient: QUALITY Stroke Symptom Onset Unknown: No VTE Deep Vein Thrombosis/Pulmonary Embolism Present on Admission: No
[2020-09-16] MEDS ORDERED: BACITRACIN IRR SCH (21:00)
[2020-09-16] MEDS ORDERED: GENTAMICIN SULFATE IRR SCH (21:00)
[2020-09-16] MEDS ORDERED: CLINDAMYCIN IRR SCH (21:00)
[2020-09-16] MEDS ORDERED: [UNRECOGNIZED DRUG - OTHER] IRR SCH (21:00)
== END 2020-09-16 14:50 | disposition swing bed (61) | DRG 570 ==
LOC: MEDSUR 19:56 → ED 19:56 → MEDSUR 23:48
PROVIDERS: ADMIT Internal Medicine; ATTEND Internal Medicine

== ENCOUNTER 2020-11-05 11:05 | Inpatient (IN) ==
[2020-11-05] MEDS ORDERED: 0.9 % SODIUM CHLORIDE 1,000 ML IV ONE ×2 (11:33→15:14)
[2020-11-05] MEDS ORDERED: ACETAMINOPHEN 650 MG SUPP.RECT PR ONE ×2 (11:37→17:12)
[2020-11-05] MEDS ORDERED: KETOROLAC 15 MG/ML VIAL IV ONE (11:37)
--- NOTE | 2020-11-05 11:44 | EKG ---
[facility] Test Date: 2020-11-05 Pat Name: Zack Cardenas Department: ED Room: Gender: Male Incoming Freight Clerk: : 1970 Requested By: Humberto Beckman Order Number: [id number] Reading MD: Michael Robertson M.D. Measurements Intervals [place] Rate: 108 P: 262 NE: 132 QRS: 9 QRSD: 98 T: 79 QT: 389 QTc: 522 Interpretive Statements Sinus or ectopic atrial tachycardia Probable anteroseptal infarct, old Prolonged QT interval No prior tracing for comparison. I reviewed and agree with the above findings. Electronically Signed On 11-05-2020 17:42:45 PDT by Michael Robertson M.D. /[facility] [place][id number]
[2020-11-05] MEDS ORDERED: cefTRIAXone 1 GM in DEXTROSE 5% IN WATER 50 ML IV SCH (11:45)
[2020-11-05 12:47] LABS: Basophils # (Auto) 0.07 K/mcL (0.00-0.20); Basophils % (Auto) 0.8 % (0.0-2.0); Eosinophils # (Auto) 0.04 K/mcL (0.00-0.70); Eosinophils % (Auto) 0.5 % (0.0-7.0); Hematocrit 44.2 % (41.0-55.0); Hemoglobin 13.9 g/dL (13.5-16.5); Lymphocytes # (Auto) 0.35 K/mcL (1.50-4.80); Lymphocytes % (Auto) 4.2 % (15.0-49.0); Mean Cell Volume 92.1 fL (80.0-100.0); Mean Corpuscular HGB Conc 31.4 g/dL (31.0-36.0); Mean Platelet Volume 9.7 fL (7.4-10.4); Monocytes # (Auto) 0.41 K/mcL (0.10-0.90); Monocytes % (Auto) 4.9 % (1.0-12.0); Platelet Count 255 K/mcL (140-440); WBC 8.4 K/mcL (4.5-11.0)
[2020-11-05 12:50] LABS: ALT/SGPT 33 U/L (<40); AST/SGOT 50 U/L (<40); Albumin 2.7 gm/dL (3.2-5.2); Albumin/Globulin Ratio 0.5 (1.0-2.3); Alkaline Phosphatase 335 U/L (39-117); Bilirubin,Total 0.7 mg/dL (0.1-1.0); Blood Urea Nitrogen 29 mg/dL (6-20); Calcium 8.9 mg/dL (8.6-10.4); Carbon Dioxide 16 mmol/L (22-30); Chloride 91 mmol/L (96-108); Glomerular Filtration Rate 70; Glucose 76 mg/dL (70-105)
--- NOTE | 2020-11-05 13:24 | XRay Report ---
INDICATION: Fever. Status post right central venous catheter placement TECHNIQUE: AP portable semierect chest x-ray COMPARISON: Previous examination dated 09/13/2020 FINDINGS:Status post interval removal of right-sided PICC line. A right central venous catheter was placed using an internal jugular approach. Catheter is deflected laterally and is probably at the junction of the right subclavian vein and axillary vein. Lungs:Mild pulmonary parenchymal density of both lung bases. This probably secondary to atelectasis in this semierect patient Heart, vascular:No significant cardiomegaly. Pulmonary vascularity is normal. No pulmonary edema or pulmonary congestion Mediastinum, ricardo:No mediastinal widening. No hilar mass Pleura:No pleural fluid. No pleural-based mass or calcification. No pneumothorax. Skeletal:There is thoracolumbar scoliosis IMPRESSION: 1. Right central venous catheter directed laterally. This is probably at the junction of the right subclavian and axillary veins 2. No pneumothorax identified on this semierect chest x-ray 3. bibasilar pulmonary parenchymal density. This may be due to atelectasis. Pneumonia is not excluded. Interpreted and Authenticated by: Jesus Espinal 11/05/20
--- NOTE | 2020-11-05 14:48 | XRay Report ---
INDICATION: post central line adjustment. TECHNIQUE: AP portable semi- chest x-ray COMPARISON: Previous chest x-ray dated 11/05/2020 FINDINGS:Right central venous catheter utilizing an internal jugular approach. Catheter tip is in the proximal superior vena cava. No pneumothorax Lung bases are slightly better aerated than on previous examination. There is mild persistent density at the left lung base with atelectasis. Findings may be due to benign volume loss although left basilar pneumonia is not excluded. IMPRESSION: 1. Right central venous catheter with its tip in the proximal superior vena cava 2. No pneumothorax Interpreted and Authenticated by: Jesus Espinal 11/05/20
--- NOTE | 2020-11-05 15:14 | Emergency Department Note ---
Altered Mental Status HPI General Chief Complaint: Altered Mental Status Stated Complaint: Decreased LOC Time Seen by Provider: 11/05/20 11:19 Source: family, EMS, RN notes reviewed and old records reviewed Mode of arrival: EMS Limitations: altered mental status History of Present Illness HPI Narrative: Narrative: 50-year-old male quadriplegic who was recently in for Car placement in treatment of a decubitus ulcer on his buttocks was found this morning by his mother unresponsive. He was brought in via EMS. Patient is quadriplegic and has been to the hospital emergency department multiple times in the last month. Patient is unable to give any his medical condition MD complaint: altered mental status, confusion, decreased responsiveness and weakness Onset (ago): day(s) Timing confirmed by: family member (Mother awoke to find her son who is a quadriplegic unresponsive) Severity: severe Consistency of Symptoms: getting worse Context: other (Recent Car catheter placement in a decubitus ulcer on his buttock) Related Data Home Medications Medication Instructions Recorded Confirmed baclofen 20 mg PO TID 09/22/18 09/17/20 duloxetine [Cymbalta] 60 mg PO DAILY 09/22/18 09/17/20 methadone 30 mg PO TID 09/22/18 09/17/20 oxybutynin chloride 10 mg PO BID 09/22/18 09/17/20 tizanidine [Zanaflex] 16 mg PO TID 09/22/18 09/17/20 methadone 50 mg PO HS 09/09/20 09/17/20 oxycodone-acetaminophen [Percocet] 1 tab PO DAILYP PRN 09/09/20 09/17/20 bisacodyl [Dulcolax (bisacodyl)] 10 mg MA Q48 09/10/20 09/17/20 Previous Rx's Medication Instructions Recorded ampicillin-sulbactam [Unasyn] 3 g IM Q6H #1 ea 09/13/20 specialty bed. #1 ea 09/17/20 methadone 30 mg PO TID #30 tab 09/22/20 methadone 50 mg PO HS #10 tab 09/22/20 oxycodone-acetaminophen [Percocet] 1 tab PO Q8H PRN #10 tab 09/22/20 polyethylene glycol 3350 [Miralax] 17 g PO DAILY #30 ea 09/22/20 Allergies Allergy/AdvReac Type Severity Reaction Status Date / Time No Known Drug Allergies Allergy Verified 11/05/20 11:16 Review of Systems ROS ROS Narrative: Narrative: Limitations: ROS unobtainable due to patients medical condition [facility] Narrative Patient History Narrative: Narrative: Medical/Surgical/Family History All Active Problems (Updated 11/05/20 @ 15:08 by Humberto Beckman MD) Constipation (Acute) Car catheter in place (Acute) Altered mental status (Acute) Delirium due to general medical condition (Acute) Sepsis (Acute) Staph aureus infection (Acute) H/O left radical nephrectomy (Acute) Bladder mass (Acute) 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 Social History Smoking Status: Current every day smoker Exam Narrative Narrative: Narrative: General Limitations: altered mental status General appearance: Present obtunded and thin Head Head: Present atraumatic and normocephalic Eye Eye: Present normal appearance ENT ENT: Present mucous membranes dry Neck Neck: Present normal inspection Chest Chest: Present normal inspection Respiratory Respiratory: Present normal lung sounds bilaterally; Absent respiratory distress Cardiovascular Cardiovascular: Present normal rhythm, tachycardia and systolic murmur Adbominal Abdominal: Present soft Rectal Rectal: Present heme (-) stool : Present other (Car catheter in place) Extremities Extremities: Present other (Lower extremity semicontracted upper extremities he is able to move) Back Back: Present normal inspection Expanded Neurological Coma Scale Eye Opening: To Pain Coma Scale Motor Response: Withdraws to Pain Coma Scale Verbal Response: Inappropriate Coma Scale Total: 9 Skin Skin: Present other (Decubitus ulcer to buttocks cleaned and dressed) Course Vital Signs Vital signs: Vital Signs Temperature 101.4 F H 11/05/20 11:06 Pulse Rate 106 H 11/05/20 11:06 Respiratory Rate 17 11/05/20 11:06 Blood Pressure 77/55 11/05/20 11:06 Pulse Oximetry (%) 92 11/05/20 11:06 Temperature 101.4 F H 11/05/20 11:06 Pulse Rate 121 H 11/05/20 13:37 Respiratory Rate 17 11/05/20 14:21 Blood Pressure 139/102 11/05/20 14:21 Pulse Oximetry (%) 100 11/05/20 13:37 Procedures Other Procedure: Central line placement secondary to no peripheral IV access. Consent was not obtained as this is an emergency procedure. After washing hands placing patient in Trendelenburg timeout to identify patient be 2 methods and identify procedure I proceeded to sterile gloves. The area was cleaned with ChloraPrep and sterile drapes were placed over the patient ultrasound guidance was used to identify the internal jugular a and the guidewire was placed. This was done initially on the second attempt. Patient became very agitated and started rocking and bucking around in the bed and was manually restrained while the triple-lumen was placed. There was good blood flow but x-ray revealed that it had gone into the axillary vein. The triple-lumen was removed and an Seldinger technique guidewire was placed into the internal jugular and a triple- lumen was replaced there were is good blood flow it was saline flushed and secured with a bio disc sutures and Adaptic dressing post procedure chest x-ray reveals there is no pneumothorax and the line is well placed in the superior vena cava. Patient tolerated the procedure mother and father were at bedside MDM MDM Narrative Medical decision making narrative: Narrative: Patient with altered mental status and high fever tachycardia and hypotension elevated lactate at 6.9 indicating severe sepsis. Patient is white count is normal his BUN to creatinine is greater than 20-1 sodium is 131 anion gap is 24. Patient was difficult IV access and they were unable to obtain peripheral access he was a difficult central line in that he became very combative 1 arousal placing the central line secondary to his delirium from fever initial central line had to be replaced as it was in the axillary and a second attempt was done showing the central line well placed in the this delayed the patient receiving his IV fluid bolus resuscitation and his IV anti-. Patient will recei ve his IV fluid bolus and antibiotics of the central line is confirmed as being appropriately placed. Differential Diagnosis Differential Diagnosis: Pneumonia UTI severe sepsis cellulitis altered mentation Medical Records Medical records reviewed: Yes I reviewed the patient's medical records. Lab Data Lab results reviewed: Yes I reviewed the patient's lab results. Result diagrams: 11/05/20 11:34 11/05/20 11:34 Labs: Lab Results 11/05/20 11/05/20 11/05/20 Range/Units 11:34 11:34 12:03 WBC 8.4 (4.5-11.0) K/mcL RBC 4.80 (4.50-5.90) M/mcL Hgb 13.9 (13.5-16.5) g/dL Hct 44.2 (41.0-55.0) % MCV 92.1 (80.0-100.0) fL MCH 29.0 (26.0-34.0) pg MCHC 31.4 (31.0-36.0) g/dL RDW 15.0 H (11.5-14.5) % Plt Count 255 (140-440) K/mcL MPV 9.7 (7.4-10.4) fL Neut % (Auto) 89.6 H (38.0-78.0) % Lymph % (Auto) 4.2 L (15.0-49.0) % Lucas % (Auto) 4.9 (1.0-12.0) % Eos % (Auto) 0.5 (0.0-7.0) % Baso % (Auto) 0.8 (0.0-2.0) % Lymph # (Auto) 0.35 L (1.50-4.80) K/mcL Lucas # (Auto) 0.41 (0.10-0.90) K/mcL Eos # (Auto) 0.04 (0.00-0.70) K/mcL Baso # (Auto) 0.07 (0.00-0.20) K/mcL Absolute Neutrophils 7.49 (1.80-8.00) K/mcL VBG Lactic Acid 6.9 H* (0.5-2.0) mmol/L Sodium 131 L (133-145) mmol/L Potassium 3.3 (3.3-5.1) mmol/L Chloride 91 L (96-108) mmol/L Carbon Dioxide 16 L (22-30) mmol/L Anion Gap 24.0 H (8.0-16.0) BUN 29 H (6-20) mg/dL Creatinine 1.2 (0.7-1.2) mg/dL GFR Calculation 70 Glucose 76 (70-105) mg/dL Calcium 8.9 (8.6-10.4) mg/dL Total Bilirubin 0.7 (0.1-1.0) mg/dL AST 50 H (<40) U/L ALT 33 (<40) U/L Alkaline Phosphatase 335 H (39-117) U/L Total Protein 7.7 (5.9-8.4) gm/dL Albumin 2.7 L (3.2-5.2) gm/dL Globulin 5.0 H (2.2-3.7) gm/dL Albumin/Globulin Ratio 0.5 L (1.0-2.3) Radiology Data Radiology results reviewed: Yes I reviewed the patient's radiology results. EKG Data EKG #1: EKG attestation: Yes I reviewed and interpreted this EKG. EKG shows normal: sinus rhythm Rate: tachycardia [place]/QRS: normal Heart block present: None ST segment elevation in: None ST segment depression in: None Q waves: v1 and v2 T wave inversions noted in: v3 and v4 QTc: prolonged Interpretation: nonspecific ST-T wave changes Pulse Oximetry Data Pulse Ox %: 95 Interpretation: 95% on room air is within normal limits for this patient. CC TIME Critical Care Time Critical Care Time: Yes Total Critical Care Time: 50 Attestation: Approximately [50] minutes of critical care time was used in order to assess and manage the high probability of imminent or life threatening deterioration to [sepsis with high fever and delirium.] which required my highest level of preparedness and interventions with frequent patient assessments. This time is excluding time spent on separately billable procedures. Discharge Plan Patient/Caregiver Discharge Instructions Pt seen by RIB CHOPPER/PA only: No Clinical Impression: Abscess and cellulitis of gluteal region, Delirium due to general medical condition Altered mental status Qualifiers: Altered mental status type: somnolence Qualified Code(s): R40.0 - Somnolence Sepsis Qualifiers: Sepsis type: sepsis due to unspecified organism Sepsis acute organ dysfunction status: with acute organ dysfunction Severe sepsis acute organ dysfunction type: encephalopathy Severe sepsis shock status: with septic shock Qualified Code(s): A41.9 - Sepsis, unspecified organism Patient Disposition: Xfer As Inpt ([facility]) Follow up with: Louis Wong MD [Primary Care Provider] - Prescriptions: No Action oxybutynin chloride 10 MG tablet extended release 24hr 10 mg PO BID RF: 0 methadone 10 MG tablet 30 mg PO TID RF: 0 baclofen 20 MG tablet 20 mg PO TID RF: 0 duloxetine [Cymbalta] 60 MG capsule,delayed release(DR/EC) 60 mg PO DAILY RF: 0 tizanidine [Zanaflex] 4 MG capsule 16 mg PO TID RF: 0 methadone 10 mg Tablet 50 mg PO HS RF: 0 oxycodone-acetaminophen [Percocet] 10-325 mg Tablet 1 tab PO DAILYP PRN (Reason: Pain) RF: 0 bisacodyl [Dulcolax (bisacodyl)] 10 mg Suppository 10 mg MA Q48 RF: 0 ampicillin-sulbactam [Unasyn] 3 gram recon soln 3 g IM Q6H Qty: 1 RF: 0 (DME) specialty bed. See Rx Instructions .Route .MEDSUPPLY Qty: 1 RF: 0 polyethylene glycol 3350 [Miralax] 17 gram Powder In Packet 17 g PO DAILY Qty: 30 RF: 2 methadone 10 mg tablet 30 mg PO TID Qty: 30 RF: 0 methadone 10 mg tablet 50 mg PO HS Qty: 10 RF: 0 oxycodone-acetaminophen [Percocet] 10-325 mg tablet 1 tab PO Q8H PRN (Reason: pain) Qty: 10 RF: 0
[2020-11-05 15:51] LABS: Neutrophils % (Auto) 89.6 % (38.0-78.0)
--- NOTE | 2020-11-05 16:07 | Internal Med History&Physical ---
HPI History of Present Illness Patient information: Note initiated : 11/05/20 at 3:53 pm Service Date, if different from initiated Date: [] Patient: Zack Cardenas a 50 y/o M admitted on for Decreased LOC. Chief Complaint: [] History of present illness: Mr. Cardenas is a 50 year old M Who presented to the ED because his mother found him unresponsive. Work-up in the ED was consistent with severe sepsis source suspected to be UTI, although I do not have the urinalysis back yet. Patient was admitted to [facility] at the very end of August for a gluteal abscess which underwent I&D. He was placed on IV antibiotics for 6-week course to finish early October. When he discharged in early September he went to [facility] and then after that went to [facility], [place] and is only been home for less than a week. He lives next door to his parent to take care of him. He was at [facility] on Tuesday and Tuesday for a junctional bradycardia with hypotension that resolved overnight. Seen by transverse abdominal muscle surgeon stated and noted if he remains symptomatic from bradycardia he could consider leadless pacemaker but do not want to perform that at this time. In 1 to follow-up with him outpatient. Distally he has had a Lehman catheter since his initial hospitalization in September. While at [facility] he asked him to discontinue it on discharge. He was doing straight cath but was unable to straight cath himself and on Tuesday he went to [facility] had a Lehman catheter placed. I am unable to get review of systems given his obtundation. He had an elevated lactate. Chest x-ray with some atelectasis. Mildly hyponatremic. Acidotic. 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 MEDS/ALLERGIES Home Medications and Allergies Home Medications Medication Instructions Recorded Confirmed Type baclofen 20 mg PO TID 09/22/18 09/17/20 History duloxetine [Cymbalta] 60 mg PO DAILY 09/22/18 09/17/20 History methadone 30 mg PO TID 09/22/18 09/17/20 History oxybutynin chloride 10 mg PO BID 09/22/18 09/17/20 History tizanidine [Zanaflex] 16 mg PO TID 09/22/18 09/17/20 History methadone 50 mg PO HS 09/09/20 09/17/20 History oxycodone-acetaminophen [Percocet] 1 tab PO DAILYP PRN 09/09/20 09/17/20 History bisacodyl [Dulcolax (bisacodyl)] 10 mg GA Q48 09/10/20 09/17/20 History ampicillin-sulbactam [Unasyn] 3 g IM Q6H #1 ea 09/13/20 09/17/20 Rx specialty bed. #1 ea 09/17/20 Rx methadone 30 mg PO TID #30 tab 09/22/20 Rx methadone 50 mg PO HS #10 tab 09/22/20 Rx oxycodone-acetaminophen [Percocet] 1 tab PO Q8H PRN #10 tab 09/22/20 Rx polyethylene glycol 3350 [Miralax] 17 g PO DAILY #30 ea 09/22/20 Rx Allergies Allergy/AdvReac Type Severity Reaction Status Date / Time No Known Drug Allergies Allergy Verified 11/05/20 11:16 EXAM Constitutional Vitals: Temp Pulse Resp BP Pulse Ox 101.4 F H 120 H 14 109/77 96 11/05/20 11:06 11/05/20 15:46 11/05/20 15:46 11/05/20 15:46 11/05/20 15:46 Exam: General: , No acute Distress Eyes/N/T: PERRL but sluggish, dry MM Head/Neck: neck supple, normocephalic atraumatic CV: tachy regular rhythm, No murmurs, normal s1/s2 Pulm: Clear b/l, no wheezing/rhonchi/rales Abd: soft, nontender, +BS x4 Ext: no clubbing/cyanosis/edema Neuro: Unresponsive to voice, paraplegic, moves upper extremities spontaneously skin: warm/dry DATA Data Completed and Pending Labs: Labs from last 24 hours 11/05/20 11/05/20 11/05/20 15:33 12:03 11:34 WBC RBC Hgb Hct MCV MCH MCHC RDW Plt Count MPV Neut % (Auto) Lymph % (Auto) [place] % (Auto) Eos % (Auto) Baso % (Auto) Lymph # (Auto) [place] # (Auto) Eos # (Auto) Baso # (Auto) Absolute Neutrophils VBG Lactic Acid 6.9 H* Sodium 131 L Potassium 3.3 Chloride 91 L Carbon Dioxide 16 L Anion Gap 24.0 H BUN 29 H Creatinine 1.2 GFR Calculation 70 Glucose 76 Calcium 8.9 Total Bilirubin 0.7 AST 50 H ALT 33 Alkaline Phosphatase 335 H Total Protein 7.7 Albumin 2.7 L Globulin 5.0 H Albumin/Globulin Ratio 0.5 L Urine Color Pending Urine Appearance Pending Urine pH Pending Ur Specific Elizabeth Pending Urine Protein Pending Urine Glucose (UA) Pending Urine Ketones Pending Urine Occult Blood Pending Urine Nitrate Pending Urine Bilirubin Pending Urine Urobilinogen Pending Ur Leukocyte Esterase Pending 11/05/20 11:34 WBC 8.4 RBC 4.80 Hgb 13.9 Hct 44.2 MCV 92.1 MCH 29.0 MCHC 31.4 RDW 15.0 H Plt Count 255 MPV 9.7 Neut % (Auto) 89.6 H Lymph % (Auto) 4.2 L [place] % (Auto) 4.9 Eos % (Auto) 0.5 Baso % (Auto) 0.8 Lymph # (Auto) 0.35 L [place] # (Auto) 0.41 Eos # (Auto) 0.04 Baso # (Auto) 0.07 Absolute Neutrophils 7.49 VBG Lactic Acid Sodium Potassium Chloride Carbon Dioxide Anion Gap BUN Creatinine GFR Calculation Glucose Calcium Total Bilirubin AST ALT Alkaline Phosphatase Total Protein Albumin Globulin Albumin/Globulin Ratio Urine Color Urine Appearance Urine pH Ur Specific Elizabeth Urine Protein Urine Glucose (UA) Urine Ketones Urine Occult Blood Urine Nitrate Urine Bilirubin Urine Urobilinogen Ur Leukocyte Esterase A/P Narrative A/P Narrative: A: *Sepsis: Suspected to be -lehman in place as pt has been unable to self cath -lactate 6.9 *?uti: *Hypotension: 2/2 above, responded to IV fluids in ED *Encephalopathy: 2/2 above *Met acidosis: 2/2 lactic acidosis *Hyponatremia: *Hypovolemia: *Neurogenic bladder: lehman in place as been unable to self catheterizes at home *Chronic pain w/opioid dependence: on high dose methadone at home *Hx of left ureteral transitional cell carcinoma: s/p nephroureterectomy July 2020 *GERD: *recent Large gluteal abscess w/soft tissue necrosis extending to right ischial ramus s/p I&D 09/10 and -finished IV Abx 10/23/2019 * P: -IVF, f/u lactate -Rocephin/Vanco, pending BC/ -replace lehman -IS -wound care - -ppx: lovenox/home ppi DNR Time Spent With Patient Time: Total time spent is greater than 50% in coordination of care (as documente d) at patient's floor/unit and/or counseling patient:
[2020-11-05 16:21] LABS: Appearance,Urine CLOUDY (Clear); Bilirubin,Urine Negative (Negative); Color,Urine Yellow; Culture Indicated,Urine No; Glucose,Urine (UA) Negative (Negative); Ketones,Urine Negative (Negative); Leukocyte Esterase,Urine 500 /ug (Negative); Mucus,Urine FEW /hpf; Nitrate,Urine Negative (Negative); Protein,Urine 100 mg/dL (Negative); Specific Gravity,Urine 1.014 (1.000-1.035); Sperm,Urine PRESENT /hpf (Absent); Urine Hyaline Cast 3 /lph (0-2); Urine RBC 8 /hpf (0-3); Urine Squamous Epithelial Cell 6 /hpf (0-4); Urine WBC 60 /hpf (0-4); Urobilinogen,Urine Negative
[2020-11-05] MEDS ORDERED: SENNOSIDES 1 TABLET PO PRN (17:12)
[2020-11-05] MEDS ORDERED: MAGNESIUM SULFATE 2 GM/50 ML BAG IV PRN (17:12)
[2020-11-05] MEDS ORDERED: IPRATROPIUM/ALBUTEROL 3 ML AMPUL.NEB NEB PRN (17:12)
[2020-11-05] MEDS ORDERED: POLYETHYLENE GLYCOL 3350 17 GM PACKET PO PRN (17:12)
[2020-11-05] MEDS ORDERED: POTASSIUM CHLORIDE 40 MEQ in DEXTROSE 5% IN WATER 500 ML IV PRN (17:12)
[2020-11-05] MEDS ORDERED: ONDANSETRON 4 MG/2 ML VIAL IV PRN (17:12)
[2020-11-05] MEDS ORDERED: POTASSIUM CHLORIDE 20 MEQ TABLET PO PRN ×2 (17:12)
[2020-11-05] MEDS ORDERED: VANCOMYCIN PER PHARMACY IV SCH (17:12)
[2020-11-05] MEDS ORDERED: ACETAMINOPHEN 325 MG TABLET PO PRN (17:12)
[2020-11-05] MEDS ORDERED: cefTRIAXone 1 GM VIAL IV ONE (17:15)
[2020-11-05] MEDS ORDERED: LORazepam 2 MG/ML VIAL IV ONE (17:36)
[2020-11-05] MEDS: 0.9 % SODIUM CHLORIDE 1,000 ML IV SCH (18:09)
--- NOTE | 2020-11-05 18:10 | Cat Scan Report ---
INDICATION: Altered LOC COMPARISON: None. TECHNIQUE: Axial noncontrast-enhanced images through the brain. Sagittally and coronally reformatted images. FINDINGS: Cerebral hemispheres:Negative. No intra-axial abnormality. No intra-axial hematoma. No localized mass effect. Brain volume is within normal limits. No hydrocephalus Brainstem and cerebellum:No intra-axial abnormality Extra-axial:No acute hemorrhage. No subdural or epidural hematoma. No subarachnoid hemorrhage. Basilar cisterns are normal Calvarial:No calvarial fracture. No lytic lesion Temporal bones are negative. No destructive lesions Soft tissue, orbits, sinuses:Orbits and visualized facial soft tissues and paranasal sinuses are negative IMPRESSION: Negative noncontrast enhanced brain CT scan The exam was performed using radiation dose optimization techniques including, but not limited to, automated exposure control, adjustment of the mA and/or kV according to patient size and use of iterative reconstruction technique. Interpreted and Authenticated by: Jesus Espinal 11/05/20
[2020-11-05] MEDS: ACETAMINOPHEN 650 MG SUPP.RECT PR ONE ×2 (18:30→20:31)
[2020-11-05] MEDS ORDERED: LORazepam 2 MG/ML VIAL IV PRN (18:51)
[2020-11-05] MEDS: VANCOMYCIN 1,000 MG in 0.9 % SODIUM CHLORIDE 250 ML IV SCH (18:57)
[2020-11-05] MEDS ORDERED: oxyCODONE/APAP 10/325MG TABLET PO PRN (19:14)
[2020-11-05 19:38] LABS: Blood Urea Nitrogen 30 mg/dL (6-20); Calcium 8.2 mg/dL (8.6-10.4); Carbon Dioxide 18 mmol/L (22-30); Chloride 97 mmol/L (96-108); Glomerular Filtration Rate 63; Glucose 77 mg/dL (70-105); Prolactin 23.8 ng/mL (4.0-15.2)
[2020-11-05] MEDS ORDERED: levETIRAcetam 2,000 MG in 0.9 % SODIUM CHLORIDE 100 ML IV ONE (20:30)
[2020-11-05] MEDS ORDERED: SENNOSIDES 1 TABLET PO SCH (21:00)
[2020-11-05] MEDS: DOCUSATE SODIUM 100 MG CAPSULE PO SCH (21:13)
[2020-11-05] MEDS: OXYBUTYNIN CHLORIDE 5 MG TAB.XL.24H PO SCH (21:14)
[2020-11-05] MEDS: BACLOFEN 10 MG TABLET PO SCH (21:14)
[2020-11-05] MEDS: tiZANidine 4 MG TABLET PO SCH (21:15)
[2020-11-05] MEDS: 0.9 % SODIUM CHLORIDE 10 ML SYRINGE IV SCH (21:15)
[2020-11-05] MEDS ORDERED: ACETAMINOPHEN 650 MG SUPP.RECT PR PRN (21:43)
[2020-11-05] MEDS ORDERED: ACETAMINOPHEN 650 MG/65 ML BAG IV PRN (21:59)
[2020-11-05 23:29] LABS: Appearance,Urine TURBID (Clear); Bilirubin,Urine Negative (Negative); Color,Urine Yellow; Culture Indicated,Urine No; Glucose,Urine (UA) Negative (Negative); Ketones,Urine Negative (Negative); Leukocyte Esterase,Urine 75 /ug (Negative); Nitrate,Urine Negative (Negative); Protein,Urine 100 mg/dL (Negative); Specific Gravity,Urine 1.009 (1.000-1.035); Urine Blood >=1.0 mg/dL (Negative); Urine RBC 16 /hpf (0-3); Urine Squamous Epithelial Cell 2 /hpf (0-4); Urine WBC 0 /hpf (0-4); Urobilinogen,Urine Negative
[2020-11-06] MEDS: 0.9 % SODIUM CHLORIDE 10 ML SYRINGE IV SCH ×6 (02:28→21:59)
[2020-11-06] MEDS: 0.9 % SODIUM CHLORIDE 1,000 ML IV SCH (03:49)
--- NOTE | 2020-11-06 05:41 | Ultrasound Report ---
INDICATION: Patient complains of pain and possible pulsatile abnormality in the right side of the neck following right central venous catheter placement COMPARISON: Previous chest x-rays dated 11/05/2020 TECHNIQUE: Carotid arteries were imaged in sagittal and transverse planes using 5 mHz linear probe: Doppler, color, and 2D. FINDINGS: Initial chest x-ray demonstrated a right internal jugular central venous catheter. This catheter was deflected laterally and is felt to be with in the subclavian and axillary vein. Catheter was repositioned or replaced and catheter tip appears to be in the superior vena cava. There is mild atherosclerotic plaque within both common carotid arteries and proximal internal carotid arteries. There is no hemodynamically significant stenosis Maximum Systolic Flow Velocity: - Right common carotid artery: 83 cm/sec - Right internal carotid artery: 92 cm/sec - Left common carotid artery: 93 cm/sec - Left internal carotid artery: 102 cm/sec Right vertebral artery is not visualized. Left vertebral artery is patent. There is no hematoma. No pseudoaneurysm identified. Normal arterial flow is demonstrated within the right subclavian artery. Right subclavian vein is identified and no arterial flow was noted by our technologist. If this patient has continued symptoms or evidence for an expanding mass repeat examination is recommended for further documentation of venous flow pattern within the subclavian vein and to exclude an enlarging pseudoaneurysm IMPRESSION: 1. No hematoma or detectable pseudoaneurysm 2. Arterial flow waveform is not documented within the right subclavian vein Interpreted and Authenticated by: Jesus Espinal 11/06/20
[2020-11-06 06:37] LABS: Hematocrit 38.4 % (41.0-55.0); Hemoglobin 12.5 g/dL (13.5-16.5); Mean Cell Volume 88.7 fL (80.0-100.0); Mean Corpuscular HGB Conc 32.6 g/dL (31.0-36.0); Mean Platelet Volume 10.3 fL (7.4-10.4); Platelet Count 244 K/mcL (140-440); RBC 4.33 M/mcL (4.50-5.90); Red Cell Distribution Width 15.2 % (11.5-14.5); WBC 9.3 K/mcL (4.5-11.0)
--- NOTE | 2020-11-06 06:52 | Internal Med Progress Note ---
SUBJECTIVE Subjective Patient information: Note initiated : 11/06/20 at 6:42 am Service Date, if different from initiated Date: [] Patient: Zack Cardenas a 50 y/o M admitted on 11/05/20 for Decreased LOC. Chief Complaint: [] Interval history: altered mentationReview of systems given History of present illness: Mr. Cardenas is a 50 year old M Who presented to the ED because his mother found him unresponsive. Work-up in the ED was consistent with severe sepsis source suspected to be UTI, although I do not have the urinalysis back yet. Patient was admitted to [facility] at the very end of August for a gluteal abscess which underwent I&D. He was placed on IV antibiotics for 6-week course to finish early October. When he discharged in early September he went to [facility] and then after that went to [facility] and is only been home for less than a week. He lives next door to his parent to take care of him. He was at [facility] on Tuesday and Tuesday for a junctional bradycardia with hypotension that resolved overnight. Seen by voltage inspector stated and noted if he remains symptomatic from bradycardia he could consider leadless pacemaker but do not want to perform that at this time. In 1 to follow-up with him outpatient. Distally he has had a Lehman catheter since his initial hospitalization in September. While at [facility] he asked him to discontinue it on discharge. He was doing straight cath but was unable to straight cath himself and on Tuesday he went to [facility] had a Lehman catheter placed. I am unable to get review of systems given his obtundation. He had an elevated lactate. Chest x-ray with some atelectasis. Mildly hyponat remic. Acidotic. 11/06 ?seizure like activity per nurse. Did load with keppra. continues to be feb rile/agitated/not following commands. repeat UA equivocal for infection. *I had a discussion with his mother regarding goals of care. She would like to continue as we are for now to find out if we can find a cause and to see how he responds to therapy. However, if he does not respond or if his condition worsens she would like to transition to a comfort care focus. If something is found that requires transfer to higher care facility then she would likely transition to a comfort care as she does not want to escalate care or get more aggressive Unable to gather review of systems given altered mentation Constitutional Vitals: Vital Signs Temp Pulse Resp BP Pulse Ox 100.6 F H 111 H 50 H 144/105 97 11/06/20 06:32 11/06/20 06:14 11/06/20 06:14 11/06/20 06:14 11/06/20 06:14 Period Temp Pulse Resp BP Sys/Parks Pulse Ox Last 24 Hr 99.2 F-102.9 F 57-121 13-50 75-167/47-106 87-100 Intake and Output 11/05/20 11/06/20 11/06/20 21:59 05:59 13:59 Intake Total 2300 1087 Output Total 450 1275 175 Balance 1850 -188 -175 Weight 80.286 kg Intake & Output: Intake & Output 11/05/20 11/06/20 11/06/20 21:59 05:59 13:59 Intake Total 2300 1087 Output Total 450 1275 175 Balance 1850 -188 -175 Weight 80.286 kg Intake: IV 2300 1087 Sodium Chloride 0.9% 1,000 ml @ 2000 967 100 mls/hr IV .Q10H NELI Rx#: [id number] Vancomycin 1,000 mg In Sodium 250 Chloride 0.9% 250 ml @ 250 mls/ hr IV Q12H NELI Rx#:[id number] Rocephin 1 gm In Dextrose 5% in 50 Water 50 ml @ 100 mls/hr IV ONCE NELI Rx#:[id number] Keppra 2,000 mg In Sodium 120 Chloride 0.9% 100 ml @ 200 mls/ hr IV ONCE ONE Rx#:[id number] Output: Urine Catheter Amount 450 1275 175 Other: Percent of Meal Consumed 0% Urine Appearance Cloudy Cloudy Cloudy Mucous Threads Mucous Threads Uretheral (Lehman) Cloudy Cloudy Mucous Threads Mucous Threads Urine Color Dark Yellow Dark Yellow Dark Yellow Uretheral (Lehman) Dark Yellow Dark Yellow Urine Odor Normal Normal Normal Uretheral (Lehman) Normal Normal # Bowel Movements 0 Exam: General: poorly responsive, No acute Distress Eyes/N/T: PERRL but sluggish, Head/Neck: neck supple, no nucal rigidity CV: tachy regular rhythm, No murmurs, Pulm: Clear b/l, no wheezing/rhonchi/rales Abd: soft, nontender, +BS x4 Ext: no clubbing/cyanosis/edema Neuro: Unresponsive to voice, responds to touch of UE's, has gag reflex, does not open eyes, paraplegic, moves upper extremities spontaneously skin: warm/dry OBJ DATA Labs CBC & Chem 7: 11/06/20 04:23 11/06/20 04:23 Labs: Abnormal Lab Results 11/06/20 11/05/20 11/05/20 04:23 20:30 17:42 RBC 4.33 L Hgb 12.5 L Hct 38.4 L RDW 15.2 H Neut % (Auto) Lymph % (Auto) Lymph # (Auto) VBG Lactic Acid Sodium Chloride Carbon Dioxide 18 L Anion Gap 18.0 H BUN 30 H Creatinine 1.3 H Calcium 8.2 L AST Alkaline Phosphatase Albumin Globulin Albumin/Globulin Ratio Prolactin 23.8 H Urine Appearance Turbid A Urine Protein 100 A Urine Occult Blood >=1.0 A Ur Leukocyte Esterase 75 A Urine RBC 16 H Urine WBC Ur Squamous Epith Cells Hyaline Casts Urine Mucus Urine Sperm 11/05/20 11/05/20 11/05/20 17:42 15:33 12:03 RBC Hgb Hct RDW Neut % (Auto) Lymph % (Auto) Lymph # (Auto) VBG Lactic Acid 2.5 H 6.9 H* Sodium Chloride Carbon Dioxide Anion Gap BUN Creatinine Calcium AST Alkaline Phosphatase Albumin Globulin Albumin/Globulin Ratio Prolactin Urine Appearance Cloudy A Urine Protein 100 A Urine Occult Blood Ur Leukocyte Esterase 500 A Urine RBC 8 H Urine WBC 60 H Ur Squamous Epith Cells 6 H Hyaline Casts 3 H Urine Mucus Few A Urine Sperm Present A 11/05/20 11/05/20 11:34 11:34 RBC Hgb Hct RDW 15.0 H Neut % (Auto) 89.6 H Lymph % (Auto) 4.2 L Lymph # (Auto) 0.35 L VBG Lactic Acid Sodium 131 L Chloride 91 L Carbon Dioxide 16 L Anion Gap 24.0 H BUN 29 H Creatinine Calcium AST 50 H Alkaline Phosphatase 335 H Albumin 2.7 L Globulin 5.0 H Albumin/Globulin Ratio 0.5 L Prolactin Urine Appearance Urine Protein Urine Occult Blood Ur Leukocyte Esterase Urine RBC Urine WBC Ur Squamous Epith Cells Hyaline Casts Urine Mucus Urine Sperm Meds: Medications Acetaminophen (Acetaminophen 325 Mg Tablet) 650 mg PO Q6HP PRN PRN Reason: PAIN/FEVER > 101 Acetaminophen (Acetaminophen 650 Mg Supp.Rect) 650 mg MA Q6HP PRN; Protocol PRN Reason: Fever >101 Albuterol/Ipratropium (Ipratropium/Albuterol 3 Ml Ampul.Neb) 3 ml NEB Q4HP PRN PRN Reason: Shortness Of Breath Baclofen (Baclofen 10 Mg Tablet) 20 mg PO TID [facility] Last Admin: 11/05/20 21:14 Dose: Not Given Documented by: Bisacodyl (Bisacodyl 10 Mg Supp.Rect) 10 mg MA Q48 [facility] Docusate Sodium (Docusate Sodium 100 Mg Capsule) 100 mg PO BID [facility] Last Admin: 11/05/20 21:13 Dose: Not Given Documented by: Duloxetine HCl (Duloxetine 30 Mg Capsule) 60 mg PO DAILY [facility] Enoxaparin Sodium (Enoxaparin 40 Mg/0.4 Ml Syringe) 40 mg SQ DAILY [facility] Potassium Chloride 40 meq/ (Dextrose) 520 mls @ 130 mls/hr IV UD PRN PRN Reason: Potassium < 3 Magnesium Sulfate (Magnesium Sulfate) 2 gm in 50 mls @ 50 mls/hr IV UD PRN PRN Reason: Magnesium </= 1.6 Sodium Chloride (Sodium Chloride 0.9%) 1,000 mls @ 100 mls/hr IV .Q10H [facility] Last Admin: 11/06/20 03:49 Dose: 100 mls/hr Documented by: Ceftriaxone Sodium 2 gm/ (Dextrose) 50 mls @ 100 mls/hr IV DAILY [facility]; Protocol Vancomycin HCl 1,000 mg/ (Sodium Chloride) 250 mls @ 250 mls/hr IV Q12H [facility] Last Infusion: 11/05/20 20:14 Dose: Infused Documented by: Acetaminophen (Ofirmev) 650 mg in 65 mls @ 130 mls/hr IV Q6HP PRN; Protocol PRN Reason: PAIN/FEVER > 101 Last Admin: 11/06/20 06:32 Dose: 130 mls/hr Documented by: Lorazepam (Lorazepam 2 Mg/Ml Vial) 2 mg IV Q2-4HP PRN PRN Reason: seizure Ondansetron HCl (Ondansetron 4 Mg/2 Ml Vial) 4 mg IV Q4HP PRN PRN Reason: Nausea And Vomiting Oxybutynin Chloride (Oxybutynin Chloride 5 Mg Tab.Xl.24h) 10 mg PO BID [facility] Last Admin: 11/05/20 21:14 Dose: Not Given Documented by: Oxycodone/Acetaminophen (Oxycodone/Apap 10/325mg Tablet) 1 tab PO Q8HP PRN; Protocol PRN Reason: pain Pantoprazole Sodium (Pantoprazole 40 Mg Vial) 40 mg IV QAMAC [facility] Polyethylene Glycol (Polyethylene Glycol 3350 17 Gm Packet) 17 gm PO DAILYP PRN PRN Reason: Constipation Potassium Chloride (Potassium Chloride 20 Meq Tablet) 40 meq PO UD PRN PRN Reason: Potssium is 3-3.5 Potassium Chloride (Potassium Chloride 20 Meq Tablet) 40 meq PO UD PRN PRN Reason: Potassium < 3 Senna (Sennosides 1 Tablet) 2 tab PO DAILYP PRN PRN Reason: Constipation Senna (Sennosides 1 Tablet) 1 tab PO HS [facility] Last Admin: 11/05/20 21:14 Dose: Not Given Documented by: Sodium Chloride (0.9 % Sodium Chloride 10 Ml Syringe) 10 ml IV Q8 [facility] Last Admin: 11/06/20 05:21 Dose: 10 ml Documented by: Sodium Chloride (0.9 % Sodium Chloride 10 Ml Syringe) 10 ml IV Q8 [facility] Last Admin: 11/06/20 05:23 Dose: Not Given Documented by: Tizanidine HCl (Tizanidine 4 Mg Tablet) 16 mg PO TID [facility] Last Admin: 11/05/20 21:15 Dose: Not Given Documented by: Vancomycin HCl (Vancomycin Per Pharmacy) 1 order IV UD [facility]; Protocol A/P Narrative A/P Narrative: A: *Sepsis: ?etiology (UA not convincing) vs r/o STEAM ENGINEER vs bacteremia of unknown source -lehman in place prior to admit 3-days as been unable to self cath -lactate acidosis resolved -febrile *Encephalopathy(obtundation): seems out of proportion to be related to sepsis, r/o STEAM ENGINEER infection. also seizure possible or Baclofen withdrawal although family thinks he has been taking it. 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 Yeager for wound care -IVF, ngt for home meds and TF's when necessary -Rocephin/Vanco, pending BC/UC/LP -continue empiric keppra for now -IS when able -CM for placement needs -ppx: lovenox(hold for procedure)/home ppi DNR/DNI Time Spent With Patient Time: Total time spent is greater than 50% in coordination of care (as documented) at patient's floor/unit and/or counseling patient: QUALITY VTE Deep Vein Thrombosis/Pulmonary Embolism Present on Admission: No
[2020-11-06] MEDS ORDERED: LORazepam 2 MG/ML VIAL IV ONE ×2 (07:03→13:54)
[2020-11-06 07:07] LABS: ALT/SGPT 60 U/L (<40); AST/SGOT 137 U/L (<40); Albumin 2.6 gm/dL (3.2-5.2); Albumin/Globulin Ratio 0.6 (1.0-2.3); Alkaline Phosphatase 411 U/L (39-117); Bilirubin,Direct 0.4 mg/dL (<0.3); Bilirubin,Total 0.5 mg/dL (0.1-1.0); Blood Urea Nitrogen 29 mg/dL (6-20); Calcium 8.5 mg/dL (8.6-10.4); Carbon Dioxide 18 mmol/L (22-30); Chloride 105 mmol/L (96-108); Globulin 4.5 gm/dL (2.2-3.7); Glomerular Filtration Rate 70; Glucose 59 mg/dL (70-105); Lactate Dehydrogenase 312 U/L (135-225); Phosphorous 2.8 mg/dL (2.5-4.5); Triglycerides 157 mg/dL (<150); Uric Acid 7.6 mg/dL (2.5-8.0)
[2020-11-06] MEDS ORDERED: PANTOPRAZOLE 40 MG VIAL IV SCH (07:30)
--- NOTE | 2020-11-06 08:31 | XRay Report ---
INDICATION: NG tube placement verification TECHNIQUE: Supine abdomen. COMPARISON: None FINDINGS:Esophagogastric tube with its tip in the body of the stomach. Visualized portions of the abdomen are negative. No mechanical small bowel junction IMPRESSION: Esophagogastric tube in the body of the stomach. Interpreted and Authenticated by: Jesus Espinal 11/06/20
[2020-11-06] MEDS: OXYBUTYNIN CHLORIDE 5 MG TAB.XL.24H PO SCH (08:34)
[2020-11-06] MEDS: BACLOFEN 10 MG TABLET PO SCH ×2 (08:41→16:43)
[2020-11-06] MEDS: tiZANidine 4 MG TABLET PO SCH ×2 (08:41→16:43)
[2020-11-06] MEDS ORDERED: levETIRAcetam 1,000 MG in 0.9 % SODIUM CHLORIDE 100 ML IV SCH (09:00)
[2020-11-06] MEDS ORDERED: ENOXAPARIN 40 MG/0.4 ML SYRINGE SQ SCH (09:00)
[2020-11-06] MEDS ORDERED: DULoxetine 30 MG CAPSULE PO SCH (09:00)
[2020-11-06] MEDS ORDERED: cefTRIAXone 2 GM in DEXTROSE 5% IN WATER 50 ML IV SCH (09:00)
[2020-11-06 09:08] LABS: INR 1.2 (0.9-1.1); Partial Thromboplastin Time 41.7 sec (20.0-37.0); Prothrombin Time 15.6 sec (11.9-14.5)
[2020-11-06] MEDS: VANCOMYCIN 1,000 MG in 0.9 % SODIUM CHLORIDE 250 ML IV SCH (09:14)
--- NOTE | 2020-11-06 09:55 | General Surgery Consult Note ---
HPI Data of Consult Primary Care Provider: Louis Wong Consult Narrative Patient Information: Note initiated : 11/06/20 at 9:49 am Service Date, if different from initiated Date: [] Patient: Zack Cardenas 50 y/o M admitted on 11/05/20 for Decreased LOC. Chief Complaint: Evaluation for open wound RIGHT perianal region and SEPSIS. I know this patient. I saw him in ICU 120/D along with Lolis RN, In Patient wound care nurse and Ashly RN, ICU nurse. Reviewed details pertaining to his AMS and multifactorial sepsis. Brought by EMS to ER unresponsive. Resuscitated and admitted to ICU for ongoing management. After the encounter, I had a long and detailed conversation with patient's mother and his CG at home. cc:: CC: José Miguel Wright [facility] PFS All Active Problems Constipation (Acute) Car catheter in place (Acute) Altered mental status (Acute) Delirium due to general medical condition (Acute) Sepsis (Acute) Staph aureus infection (Acute) H/O left radical nephrectomy (Acute) Bladder mass (Acute) 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 MEDS/ALLERGIES Home Medications and Allergies Home Medications Medication Instructions Recorded Confirmed Type baclofen 20 mg PO TID 09/22/18 11/05/20 History duloxetine [Cymbalta] 60 mg PO DAILY 09/22/18 11/05/20 History oxybutynin chloride 10 mg PO BID 09/22/18 11/05/20 History tizanidine [Zanaflex] 16 mg PO TID 09/22/18 11/05/20 History bisacodyl [Dulcolax (bisacodyl)] 10 mg [place] Q48 09/10/20 11/05/20 History specialty bed. #1 ea 09/17/20 Rx methadone 30 mg PO TID #30 tab 09/22/20 11/05/20 Rx methadone 50 mg PO HS #10 tab 09/22/20 11/05/20 Rx oxycodone-acetaminophen [Percocet] 1 tab PO Q8H PRN #10 tab 09/22/20 11/05/20 Rx polyethylene glycol 3350 [Miralax] 17 g PO DAILYP PRN 11/05/20 11/05/20 History sennosides [senna] 8.6 mg PO HS 11/05/20 11/05/20 History Allergies Allergy/AdvReac Type Severity Reaction Status Date / Time No Known Drug Allergies Allergy Verified 11/05/20 11:16 Physical Examination Vital Signs Vital signs: Temp Pulse Resp BP Pulse Ox 99.9 F H 105 H 25 H 165/102 90 11/06/20 08:01 11/06/20 08:01 11/06/20 08:01 11/06/20 08:01 11/06/20 08:01 General physical appearance General physical exam: moderate distress Eyes Eye exam: normal ocular movement ENT ENT exam: no congestion Head Head exam IM: Present atraumatic and normocephalic Neck Neck exam: other (RIGHT IJV line inserted in ER yesterday. Difficult canulation. NO pneumothorax) Cardiovascular Cardiovascular exam IM: Present tachycardia Respiratory Respiratory exam: other (Tachypneic, O2 by AM. ) Abdomen Abdomen: Present soft, non tender and distended Genitourinary Genitourinary (Male): Present normal penis with no external lesions and other (Car catheter draining clear urine,) Rectum Rectum: Present other (No anal tone. RIGHT ischial pressure ulcer site wound has foul fecal / purulent drainage and palpable brittle bone with trackes up towards pelvis. There is extensive deterioration at this ulcer site and suspect that there is osteomyelitis and ?? fecal fistula. ) Integumentary Integumentary: Present other (Thin attenuated and necrotic edges of perianal / ischail ulcer site. RIGHT ) Neurologic Neurologic: Present other (Chronic quadriparesis / plegia.) Musculoskeletal Musculoskeletal: Present other (Bed confined. Wasting of extremity musculature. ) Results Labs Result diagrams: 11/06/20 04:23 11/06/20 04:23 Labs: Abnormal lab results 11/05/20 11/05/20 11/05/20 Range/Units 11:34 11:34 12:03 RBC (4.50-5.90) M/mcL Hgb (13.5-16.5) g/dL Hct (41.0-55.0) % RDW 15.0 H (11.5-14.5) % Neut % (Auto) 89.6 H (38.0-78.0) % Lymph % (Auto) 4.2 L (15.0-49.0) % Lymph # (Auto) 0.35 L (1.50-4.80) K/mcL PT (11.9-14.5) sec INR (0.9-1.1) APTT (20.0-37.0) sec VBG Lactic Acid 6.9 H* (0.5-2.0) mmol/L Sodium 131 L (133-145) mmol/L Chloride 91 L (96-108) mmol/L Carbon Dioxide 16 L (22-30) mmol/L Anion Gap 24.0 H (8.0-16.0) BUN 29 H (6-20) mg/dL Creatinine (0.7-1.2) mg/dL Glucose (70-105) mg/dL Calcium (8.6-10.4) mg/dL Direct Bilirubin (<0.3) mg/dL GGT (8-61) U/L AST 50 H (<40) U/L ALT (<40) U/L Alkaline Phosphatase 335 H (39-117) U/L Lactate Dehydrogenase (135-225) U/L Albumin 2.7 L (3.2-5.2) gm/dL Globulin 5.0 H (2.2-3.7) gm/dL Albumin/Globulin Ratio 0.5 L (1.0-2.3) Triglycerides (<150) mg/dL Procalcitonin (<0.10) ng/mL Prolactin (4.0-15.2) ng/mL Urine Appearance (Clear) Urine Protein (Negative) mg/dL Urine Occult Blood (Negative) mg/dL Ur Leukocyte Esterase (Negative) /ug Urine RBC (0-3) /hpf Urine WBC (0-4) /hpf Ur Squamous Epith Cells (0-4) /hpf Hyaline Casts (0-2) /lph Urine Mucus (None) /hpf Urine Sperm (Absent) /hpf 11/05/20 11/05/20 11/05/20 Range/Units 15:33 17:42 17:42 RBC (4.50-5.90) M/mcL Hgb (13.5-16.5) g/dL Hct (41.0-55.0) % RDW (11.5-14.5) % Neut % (Auto) (38.0-78.0) % Lymph % (Auto) (15.0-49.0) % Lymph # (Auto) (1.50-4.80) K/mcL PT (11.9-14.5) sec INR (0.9-1.1) APTT (20.0-37.0) sec VBG Lactic Acid 2.5 H (0.5-2.0) mmol/L Sodium (133-145) mmol/L Chloride (96-108) mmol/L Carbon Dioxide 18 L (22-30) mmol/L Anion Gap 18.0 H (8.0-16.0) BUN 30 H (6-20) mg/dL Creatinine 1.3 H (0.7-1.2) mg/dL Glucose (70-105) mg/dL Calcium 8.2 L (8.6-10.4) mg/dL Direct Bilirubin (<0.3) mg/dL GGT (8-61) U/L AST (<40) U/L ALT (<40) U/L Alkaline Phosphatase (39-117) U/L Lactate Dehydrogenase (135-225) U/L Albumin (3.2-5.2) gm/dL Globulin (2.2-3.7) gm/dL Albumin/Globulin Ratio (1.0-2.3) Triglycerides (<150) mg/dL Procalcitonin (<0.10) ng/mL Prolactin 23.8 H (4.0-15.2) ng/mL Urine Appearance Cloudy A (Clear) Urine Protein 100 A (Negative) mg/dL Urine Occult Blood (Negative) mg/dL Ur Leukocyte Esterase 500 A (Negative) /ug Urine RBC 8 H (0-3) /hpf Urine WBC 60 H (0-4) /hpf Ur Squamous Epith Cells 6 H (0-4) /hpf Hyaline Casts 3 H (0-2) /lph Urine Mucus Few A (None) /hpf Urine Sperm Present A (Absent) /hpf 11/05/20 11/06/20 11/06/20 Range/Units 20:30 04:23 04:23 RBC 4.33 L (4.50-5.90) M/mcL Hgb 12.5 L (13.5-16.5) g/dL Hct 38.4 L (41.0-55.0) % RDW 15.2 H (11.5-14.5) % Neut % (Auto) (38.0-78.0) % Lymph % (Auto) (15.0-49.0) % Lymph # (Auto) (1.50-4.80) K/mcL PT (11.9-14.5) sec INR (0.9-1.1) APTT (20.0-37.0) sec VBG Lactic Acid (0.5-2.0) mmol/L Sodium (133-145) mmol/L Chloride (96-108) mmol/L Carbon Dioxide 18 L (22-30) mmol/L Anion Gap (8.0-16.0) BUN 29 H (6-20) mg/dL Creatinine (0.7-1.2) mg/dL Glucose 59 L (70-105) mg/dL Calcium 8.5 L (8.6-10.4) mg/dL Direct Bilirubin 0.4 H (<0.3) mg/dL GGT 192 H (8-61) U/L AST 137 H (<40) U/L ALT 60 H (<40) U/L Alkaline Phosphatase 411 H (39-117) U/L Lactate Dehydrogenase 312 H (135-225) U/L Albumin 2.6 L (3.2-5.2) gm/dL Globulin 4.5 H (2.2-3.7) gm/dL Albumin/Globulin Ratio 0.6 L (1.0-2.3) Triglycerides 157 H (<150) mg/dL Procalcitonin (<0.10) ng/mL Prolactin (4.0-15.2) ng/mL Urine Appearance Turbid A (Clear) Urine Protein 100 A (Negative) mg/dL Urine Occult Blood >=1.0 A (Negative) mg/dL Ur Leukocyte Esterase 75 A (Negative) /ug Urine RBC 16 H (0-3) /hpf Urine WBC (0-4) /hpf Ur Squamous Epith Cells (0-4) /hpf Hyaline Casts (0-2) /lph Urine Mucus (None) /hpf Urine Sperm (Absent) /hpf 11/06/20 11/06/20 Range/Units 04:23 07:20 RBC (4.50-5.90) M/mcL Hgb (13.5-16.5) g/dL Hct (41.0-55.0) % RDW (11.5-14.5) % Neut % (Auto) (38.0-78.0) % Lymph % (Auto) (15.0-49.0) % Lymph # (Auto) (1.50-4.80) K/mcL PT 15.6 H (11.9-14.5) sec INR 1.2 H (0.9-1.1) APTT 41.7 H (20.0-37.0) sec VBG Lactic Acid (0.5-2.0) mmol/L Sodium (133-145) mmol/L Chloride (96-108) mmol/L Carbon Dioxide (22-30) mmol/L Anion Gap (8.0-16.0) BUN (6-20) mg/dL Creatinine (0.7-1.2) mg/dL Glucose (70-105) mg/dL Calcium (8.6-10.4) mg/dL Direct Bilirubin (<0.3) mg/dL GGT (8-61) U/L AST (<40) U/L ALT (<40) U/L Alkaline Phosphatase (39-117) U/L Lactate Dehydrogenase (135-225) U/L Albumin (3.2-5.2) gm/dL Globulin (2.2-3.7) gm/dL Albumin/Globulin Ratio (1.0-2.3) Triglycerides (<150) mg/dL Procalcitonin 58.20 H (<0.10) ng/mL Prolactin (4.0-15.2) ng/mL Urine Appearance (Clear) Urine Protein (Negative) mg/dL Urine Occult Blood (Negative) mg/dL Ur Leukocyte Esterase (Negative) /ug Urine RBC (0-3) /hpf Urine WBC (0-4) /hpf Ur Squamous Epith Cells (0-4) /hpf Hyaline Casts (0-2) /lph Urine Mucus (None) /hpf Urine Sperm (Absent) /hpf Diabetes panel 11/05/20 11/05/20 11/06/20 Range/Units 11:34 17:42 04:23 Sodium 131 L 133 139 (133-145) mmol/L Potassium 3.3 3.9 3.7 (3.3-5.1) mmol/L Chloride 91 L 97 105 (96-108) mmol/L Carbon Dioxide 16 L 18 L 18 L (22-30) mmol/L BUN 29 H 30 H 29 H (6-20) mg/dL Creatinine 1.2 1.3 H 1.2 (0.7-1.2) mg/dL Glucose 76 77 59 L (70-105) mg/dL Calcium 8.9 8.2 L 8.5 L (8.6-10.4) mg/dL AST 50 H 137 H (<40) U/L ALT 33 60 H (<40) U/L Alkaline Phosphatase 335 H 411 H (39-117) U/L Total Protein 7.7 7.1 (5.9-8.4) gm/dL Albumin 2.7 L 2.6 L (3.2-5.2) gm/dL Triglycerides 157 H (<150) mg/dL Calcium panel 11/05/20 11/05/20 11/06/20 Range/Units 11:34 17:42 04:23 Calcium 8.9 8.2 L 8.5 L (8.6-10.4) mg/dL Phosphorus 2.8 (2.5-4.5) mg/dL Albumin 2.7 L 2.6 L (3.2-5.2) gm/dL Pituitary panel 11/05/20 11/05/20 11/06/20 Range/Units 11:34 17:42 04:23 Sodium 131 L 133 139 (133-145) mmol/L Potassium 3.3 3.9 3.7 (3.3-5.1) mmol/L Chloride 91 L 97 105 (96-108) mmol/L Carbon Dioxide 16 L 18 L 18 L (22-30) mmol/L BUN 29 H 30 H 29 H (6-20) mg/dL Creatinine 1.2 1.3 H 1.2 (0.7-1.2) mg/dL Glucose 76 77 59 L (70-105) mg/dL Calcium 8.9 8.2 L 8.5 L (8.6-10.4) mg/dL Prolactin 23.8 H (4.0-15.2) ng/mL Adrenal panel 11/05/20 11/05/20 11/06/20 Range/Units 11:34 17:42 04:23 Sodium 131 L 133 139 (133-145) mmol/L Potassium 3.3 3.9 3.7 (3.3-5.1) mmol/L Chloride 91 L 97 105 (96-108) mmol/L Carbon Dioxide 16 L 18 L 18 L (22-30) mmol/L BUN 29 H 30 H 29 H (6-20) mg/dL Creatinine 1.2 1.3 H 1.2 (0.7-1.2) mg/dL Glucose 76 77 59 L (70-105) mg/dL Calcium 8.9 8.2 L 8.5 L (8.6-10.4) mg/dL Total Bilirubin 0.7 0.5 (0.1-1.0) mg/dL AST 50 H 137 H (<40) U/L ALT 33 60 H (<40) U/L Alkaline Phosphatase 335 H 411 H (39-117) U/L Total Protein 7.7 7.1 (5.9-8.4) gm/dL Albumin 2.7 L 2.6 L (3.2-5.2) gm/dL All other labs normal. A/P Narrative A/P Narrative: Assessment: SEPSIS: Multifactorial Deterioration of RIGHT perianal / ischial ulcer. Osteomyelitis ?? Fecal fistula. POOR PROGNOSIS. Plan: Supportive care transitioning to comfort care. Had a long conversation with patient's mother. She is LEANING towards, DNR / Comfort care and taking him home. Nothing more to add at this time. Agree with ongoing management by Hospitalist Physician. Time Spent With Patient Time: Total time spent is greater than 50% in coordination of care (as documented) at patient's floor/unit and/or counseling patient: Total time spent with greater than 50% in coordination of care (as documented) at patient's floor/unit and/or counseling patient:: 25 - 35 minutes
[2020-11-06] MEDS ORDERED: 0.9 % SODIUM CHLORIDE 500 ML IV ONE (09:58)
[2020-11-06] MEDS ORDERED: GENTAMICIN SULFATE 40 MG, CLINDAMYCIN 300 MG, BACITRACIN 25,000 UNIT in SODIUM CHLORIDE... IRR SCH (10:00)
[2020-11-06] MEDS: DOCUSATE SODIUM 100 MG CAPSULE PO SCH ×2 (10:06→21:59)
[2020-11-06] MEDS ORDERED: DEXTROSE 5%-NS W/20MEQ KCL 1,000 ML IV SCH (10:15)
[2020-11-06 10:57] LABS: Band Neutrophils % 10 % (0-10); Lymphocytes % 7 % (15-49); Monocytes % (Manual) 3 % (1-12); Platelet Estimate NORMAL (Normal); RBC Morphology NORMAL (Normal); Reactive Lymphocytes 1 % (0-2); Segmented Neutrophils % 79 % (38-78)
[2020-11-06] MEDS ORDERED: IOPAMIDOL 100 ML BOTTLE IV ONE (14:51)
--- NOTE | 2020-11-06 15:26 | Cat Scan Report ---
INDICATION: unknown source of infection, h/o gluteal abscess COMPARISON: Previous CT scan dated 10/27/2020 TECHNIQUE: Axial images were obtained through the abdomen and pelvis. Sagittally and coronally reformatted images. 80 mL Isovue 370 injected intravenously. FINDINGS: Lung bases:Small bilateral pleural effusions. Bilateral lower lobe infiltrate, right worse than left. Although findings may be due to benign bilateral bilateral lower lobe pneumonia is possible. Liver:Low density liver consistent with hepatic steatosis. No focal mass. Liver contour is smooth. Gallbladder, bilary:No calcified gallstones. No gallbladder wall thickening. Gallbladder is mildly distended. No intrahepatic bile duct dilatation. Common bile duct measures 9 mm. Common bile duct measured 12 mm previously Spleen:No splenomegaly. Normal enhancement of splenic and portal veins. Pancreas:No pancreatic mass. No peripancreatic abnormality Adrenal glands:Negative Kidneys, ureters, bladder:Previous left nephrectomy No solid right renal mass. No hydronephrosis. No obstructing calculi. There is no hydroureter. No ureteral stone No bladder calculi or detectable mass. There is a Car catheter within the urinary bladder. Gastrointestinal: Prominent fecal material throughout the colon consistent with constipation. There is no detectable colonic mass. No significant diverticulosis. No diverticulitis. Small bowel is negative. No mechanical small bowel obstruction. Stomach and duodenum are unremarkable Appendix: The appendix is not well visualized. No evidence for appendicitis Vascular: Mild atherosclerotic plaque in the abdominal aorta. No abdominal aortic aneurysm. Superior mesenteric artery and celiac trunk are normal. Normal opacification of the inferior mesenteric artery Lymphatic:No retroperitoneal or mesenteric adenopathy Mesentery, peritoneum: No free intraperitoneal fluid. No mesenteric or retroperitoneal mass. Reproductive:Prostate is not enlarged Musculoskeletal:Lumbar vertebral bodies are negative. No acute compression fractures. No endplate destruction. No evidence for discitis or osteomyelitis. There is an open wound overlying the right ischium. Gas extends to the initiation consistent with exposed bone. This wound did not appear to be open to the ischial cortex on previous examination. Pelvis is otherwise negative. There is a gamma nail configuration within the right hip. There is a right hip joint effusion and periarticular edema. Findings are worse on previous examination. Right hip infection is possible. No acute cortical destruction. No abdominal wall or inguinal hernia IMPRESSION: 1. Small bilateral pleural effusions. Bilateral lower lobe infiltrates. Findings are worse than on 10/27/2020. Pneumonia is possible 2. Mild extrahepatic bile duct dilatation, slightly improved 3. Previous left nephrectomy 4. Findings consistent with constipation 5. Gamma nail configuration within the right hip. There is a right hip joint effusion and periarticular soft tissue edema. Findings are more prominent than on previous examination. Septic right hip is possible 6. Open wound overlying the right ischium. Findings are consistent with exposed bone. No acute cortical destruction. The exam was performed using radiation dose optimization techniques including, but not limited to, automated exposure control, adjustment of the mA and/or kV according to patient size and use of iterative reconstruction technique. Interpreted and Authenticated by: Jesus Espinal 11/06/20
--- NOTE | 2020-11-06 15:28 | XRay Report ---
INDICATION: encephalopathy. tube 4 for further studies, TECHNIQUE: Informed consent was obtained. The patient's parents signed the consent form. Patient was placed in a prone position. Routine Betadine skin cleansing. 1% lidocaine injected subcutaneously and deep 18-gauge spinal needle was utilized. Lumbar puncture was performed at L1-L2. Opening pressure measured 0. I was only able to remove 2 mL clear CSF. IMPRESSION: 1. Fluoroscopic guided lumbar puncture 2. No elevated opening pressure. Opening pressure is 0 3. 2 mL clear CSF removed Interpreted and Authenticated by: Jesus Espinal 11/06/20
[2020-11-06 15:47] LABS: Amphetamine Screen,Urine None detected; Barbiturate Screen,Urine None detected; Benzodiazepines Screen,Urine None detected; Cannabinoid Screen,Urine None detected; Cocaine Screen,Urine None detected; Opiate Screen,Urine None detected; Oxycodone, Urine Screen Suspect Positive; Phencyclidine Screen,Urine None detected
[2020-11-06] MEDS: POLYETHYLENE GLYCOL 3350 17 GM PACKET PO ONE ×2 (16:10→16:42)
[2020-11-06 16:49] LABS: Glucose,CSF 49 mg/dL (40-70)
[2020-11-06 16:51] LABS: Appearance,CSF Clear
[2020-11-06 17:27] LABS: Nucleated Cells,CSF 1 /cumm (0-5); Red Blood Cell,CSF 1 /cumm (0-1)
--- NOTE | 2020-11-06 17:36 | Discharge Summary ---
Discharge Provider Provider Patient information: Note initiated : 11/06/20 at 5:34 pm Service Date, if different from initiated Date: [] Patient: Zack Cardenas 50 y/o M admitted on 11/05/20 for Decreased LOC. Chief Complaint: [] Date of admission: 11/05/20 16:35 Discharge date: 11/07/20 Primary care physician: Louis Wong Consults: 11/05/20 15:01 Consult to Physician [CONS] Stat Comment: Consulting Provider: José Miguel Wright Reason For Exam: Physician to Consult 11/05/20 17:12 Consult to Physician [CONS] Routine Comment: was supposed to see today for f/u wound check Consulting Provider: Han Yeager Reason For Exam: Physician to Consult Discharge Meds Discharge Medications Home Medications specialty bed. #1 ea 09/17/20 [Rx Confirmed 11/07/20 Last Taken Unknown] hyoscyamine sulfate [Levsin/SL] 0.125 mg SUBLINGUAL QID PRN #20 tab 11/06/20 [Rx Last Taken Unknown] ondansetron 4 mg PO Q8H PRN #20 tab 11/06/20 [Rx Last Taken Unknown] lorazepam 1 - 4 mg SUBLINGUAL Q1HP PRN #60 ml 11/07/20 [Rx Last Taken Unknown] morphine 10 - 20 mg PO Q1-2HP PRN #100 ml 11/07/20 [Rx Last Taken Unknown] COURSE Hospital Course Hospital course: Interval history: altered mentationReview of systems given History of present illness: Mr. Cardenas is a 50 year old M Who presented to the ED because his mother found him unresponsive. Work-up in the ED was consistent with severe sepsis source suspected to be UTI, although I do not have the urinalysis back yet. Patient was admitted to [facility] at the very end of August for a gluteal abscess which underwent I&D. He was placed on IV antibiotics for 6-week course to finish early October. When he discharged in early September he went to [facility] and then after that went to [facility] and is only been home for less than a week. He lives next door to his parent to take care of him. He was at [facility] on Tuesday and Tuesday for a junctional bradycardia with hypotension that resolved overnight. Seen by inspector fuel hose stated and noted if he remains symptomatic from bradycardia he could consider leadless pacemaker but do not want to perform that at this time. In 1 to follow-up with him outpatient. Distally he has had a Lehman catheter since his initial hospitalization in September. While at [facility] he asked him to discontinue it on discharge. He was doing straight cath but was unable to straight cath himself and on Tuesday he went to [facility] had a Lehman catheter placed. I am unable to get review of systems given his obtundation. He had an elevated lactate. Chest x-ray with some atelectasis. Mildly hyponatremic. Acidotic. 11/06 ?seizure like activity per nurse. Did load with keppra. continues to be febrile/agitated/not following commands. repeat UA equivocal for infection. *I had a discussion with his mother regarding goals of care. She would like to continue as we are for now to find out if we can find a cause and to see how he responds to therapy. However, if he does not respond or if his condition worsens she would like to transition to a comfort care focus. If something is found that requires transfer to higher care facility then she would likely transition to a comfort care as she does not want to escalate care or get more aggressive Revisited with Zack's mother after all the test of been done. And given his recent medical history and hospitalizations and his underlying medical conditions and state of health now this most recent setback, she felt it best to transition to comfort focus at this time with Zack and I agree. We will transition to comfort care only. 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 *GERD: *recent Large gluteal abscess w/soft tissue necrosis extending to right ischial ramus s/p I&D 09/10 and -finished IV Abx 10/23/2019 *recent admit at [facility] for junctional Bradycardia: Cardio said possible PPM in future -ekg on admit looks like junctional tachy, tele now shows sinus *goals of care: continue current therapy, no escalation of care or transfer to higher care facility Discharge diagnosis: Sepsis encephalopathy bacteremia Secondary discharge diagnosis: Nonhealing gluteal wound neurogenic bladder paraplegia Time Spent with Patient Time attestation: Total time spent providing and/or coordinating discharge services: Time spent: Greater than 30 minutes EXAM Constitutional Vitals: Temp Pulse Resp BP Pulse Ox 96.9 F L 55 L 15 94/63 92 11/06/20 16:01 11/06/20 17:12 11/06/20 17:12 11/06/20 17:12 11/06/20 17:12 Discharge Data Data Completed and Pending Labs on day of discharge: Labs from last 24 hours 11/06/20 11/06/20 11/06/20 15:31 07:20 04:23 WBC RBC Hgb Hct MCV MCH MCHC RDW Plt Count MPV Seg Neutrophils % Band Neutrophils % Lymphocytes % Monocytes % (Manual) Reactive Lymphocytes Platelet Estimate RBC Morphology PT 15.6 H INR 1.2 H APTT 41.7 H VBG Lactic Acid Sodium Potassium Chloride Carbon Dioxide Anion Gap BUN Creatinine GFR Calculation Glucose Uric Acid Calcium Phosphorus Magnesium Total Bilirubin Direct Bilirubin GGT AST ALT Alkaline Phosphatase Lactate Dehydrogenase Total Protein Albumin Globulin Albumin/Globulin Ratio Triglycerides Procalcitonin 58.20 H Prolactin Urine Color Urine Appearance Urine pH Ur Specific [place] Urine Protein Urine Glucose (UA) Urine Ketones Urine Occult Blood Urine Nitrate Urine Bilirubin Urine Urobilinogen Ur Leukocyte Esterase Urine RBC Urine WBC Ur Squamous Epith Cells Urine Bacteria Ur Culture Indicated? CSF Source Csf CSF Appearance Clear CSF Color Colorless CSF RBC 1 CSF Total Nucleated Auto 1 CSF Glucose 49 CSF Total Protein 50.0 H Urine Opiates Screen Ur Opiates Confirm Ur Oxycodone Screen Urine Methadone Screen Ur Methadone Confirm Ur Barbiturates Screen Ur Barbiturate Confirm Ur Phencyclidine Scrn Urine PCP Confirm Ur Amphetamines Screen U Amphetamines Confirm U Benzodiazepines Scrn U Benzodiazepine Confm Urine Cocaine Screen Urine Cocaine Confirm U Cannabinoids Confirm U Marijuana (THC) Screen 11/06/20 11/06/20 11/06/20 04:23 04:23 04:23 WBC 9.3 RBC 4.33 L Hgb 12.5 L Hct 38.4 L MCV 88.7 MCH 28.9 MCHC 32.6 RDW 15.2 H Plt Count 244 MPV 10.3 Seg Neutrophils % 79 H Band Neutrophils % 10 Lymphocytes % 7 L Monocytes % (Manual) 3 Reactive Lymphocytes 1 Platelet Estimate Normal RBC Morphology Normal PT INR APTT VBG Lactic Acid 2.0 Sodium 139 Potassium 3.7 Chloride 105 Carbon Dioxide 18 L Anion Gap 16.0 BUN 29 H Creatinine 1.2 GFR Calculation 70 Glucose 59 L Uric Acid 7.6 Calcium 8.5 L Phosphorus 2.8 Magnesium 2.4 Total Bilirubin 0.5 Direct Bilirubin 0.4 H GGT 192 H AST 137 H ALT 60 H Alkaline Phosphatase 411 H Lactate Dehydrogenase 312 H Total Protein 7.1 Albumin 2.6 L Globulin 4.5 H Albumin/Globulin Ratio 0.6 L Triglycerides 157 H Procalcitonin Prolactin Urine Color Urine Appearance Urine pH Ur Specific [place] Urine Protein Urine Glucose (UA) Urine Ketones Urine Occult Blood Urine Nitrate Urine Bilirubin Urine Urobilinogen Ur Leukocyte Esterase Urine RBC Urine WBC Ur Squamous Epith Cells Urine Bacteria Ur Culture Indicated? CSF Source CSF Appearance CSF Color CSF RBC CSF Total Nucleated Auto CSF Glucose CSF Total Protein Urine Opiates Screen Ur Opiates Confirm Ur Oxycodone Screen Urine Methadone Screen Ur Methadone Confirm Ur Barbiturates Screen Ur Barbiturate Confirm Ur Phencyclidine Scrn Urine PCP Confirm Ur Amphetamines Screen U Amphetamines Confirm U Benzodiazepines Scrn U Benzodiazepine Confm Urine Cocaine Screen Urine Cocaine Confirm U Cannabinoids Confirm U Marijuana (THC) Screen 11/05/20 11/05/20 11/05/20 20:30 20:30 17:42 WBC RBC Hgb Hct MCV MCH MCHC RDW Plt Count MPV Seg Neutrophils % Band Neutrophils % Lymphocytes % Monocytes % (Manual) Reactive Lymphocytes Platelet Estimate RBC Morphology PT INR APTT VBG Lactic Acid Sodium 133 Potassium 3.9 Chloride 97 Carbon Dioxide 18 L Anion Gap 18.0 H BUN 30 H Creatinine 1.3 H GFR Calculation 63 Glucose 77 Uric Acid Calcium 8.2 L Phosphorus Magnesium 1.9 Total Bilirubin Direct Bilirubin GGT AST ALT Alkaline Phosphatase Lactate Dehydrogenase Total Protein Albumin Globulin Albumin/Globulin Ratio Triglycerides Procalcitonin Prolactin 23.8 H Urine Color Yellow Urine Appearance Turbid A Urine pH 5.0 Ur Specific [place] 1.009 Urine Protein 100 A Urine Glucose (UA) Negative Urine Ketones Negative Urine Occult Blood >=1.0 A Urine Nitrate Negative Urine Bilirubin Negative Urine Urobilinogen Negative Ur Leukocyte Esterase 75 A Urine RBC 16 H Urine WBC 0 Ur Squamous Epith Cells 2 Urine Bacteria None Ur Culture Indicated? No CSF Source CSF Appearance CSF Color CSF RBC CSF Total Nucleated Auto CSF Glucose CSF Total Protein Urine Opiates Screen None detected Ur Opiates Confirm TNP Ur Oxycodone Screen Suspect positive A Urine Methadone Screen Suspect positive A Ur Methadone Confirm Pending Ur Barbiturates Screen None detected Ur Barbiturate Confirm TNP Ur Phencyclidine Scrn None detected Urine PCP Confirm TNP Ur Amphetamines Screen None detected U Amphetamines Confirm TNP U Benzodiazepines Scrn None detected U Benzodiazepine Confm TNP Urine Cocaine Screen None detected Urine Cocaine Confirm TNP U Cannabinoids Confirm TNP U Marijuana (THC) Screen None detected 11/05/20 17:42 WBC RBC Hgb Hct MCV MCH MCHC RDW Plt Count MPV Seg Neutrophils % Band Neutrophils % Lymphocytes % Monocytes % (Manual) Reactive Lymphocytes Platelet Estimate RBC Morphology PT INR APTT VBG Lactic Acid 2.5 H Sodium Potassium Chloride Carbon Dioxide Anion Gap BUN Creatinine GFR Calculation Glucose Uric Acid Calcium Phosphorus Magnesium Total Bilirubin Direct Bilirubin GGT AST ALT Alkaline Phosphatase Lactate Dehydrogenase Total Protein Albumin Globulin Albumin/Globulin Ratio Triglycerides Procalcitonin Prolactin Urine Color Urine Appearance Urine pH Ur Specific [place] Urine Protein Urine Glucose (UA) Urine Ketones Urine Occult Blood Urine Nitrate Urine Bilirubin Urine Urobilinogen Ur Leukocyte Esterase Urine RBC Urine WBC Ur Squamous Epith Cells Urine Bacteria Ur Culture Indicated? CSF Source CSF Appearance CSF Color CSF RBC CSF Total Nucleated Auto CSF Glucose CSF Total Protein Urine Opiates Screen Ur Opiates Confirm Ur Oxycodone Screen Urine Methadone Screen Ur Methadone Confirm Ur Barbiturates Screen Ur Barbiturate Confirm Ur Phencyclidine Scrn Urine PCP Confirm Ur Amphetamines Screen U Amphetamines Confirm U Benzodiazepines Scrn U Benzodiazepine Confm Urine Cocaine Screen Urine Cocaine Confirm U Cannabinoids Confirm U Marijuana (THC) Screen Preliminary micro results at discharge 11/06/20 15:31 Gram Stain - Preliminary Cerebral Spinal Fluid - Cerebral Spinal Fluid 11/05/20 12:37 Blood Culture - Preliminary Blood Staphylococcus aureus 11/05/20 12:03 Blood Culture - Preliminary Blood Staphylococcus aureus 11/05/20 15:33 Urine Culture - Preliminary Urine - Lehman Discharge Plan Patient/Caregiver Discharge Instructions Activity: increase activity as tolerated Diet: Regular Diet Activity Restrictions/Additional Instructions: Follow-up with hospice outpatient Prescriptions: New hyoscyamine sulfate [Levsin/SL] 0.125 mg tablet, sublingual 0.125 mg sublingual QID PRN (Reason: terminal secretions) Qty: 20 RF: 0 ondansetron 4 mg tablet,disintegrating 4 mg PO Q8H PRN (Reason: nausea and vomiting) Qty: 20 RF: 0 morphine 20 mg/5 mL (4 mg/mL) solution 10 - 20 mg PO Q1-2HP PRN (Reason: pain) Qty: 100 RF: 0 lorazepam 2 mg/mL concentrate 1 - 4 mg sublingual Q1HP PRN (Reason: anxiety) Qty: 60 RF: 0 Continued (DME) specialty bed. See Rx Instructions .Route .MEDSUPPLY Qty: 1 RF: 0 Discontinued oxybutynin chloride 10 MG tablet extended release 24hr 10 mg PO BID RF: 0 baclofen 20 MG tablet 20 mg PO TID RF: 0 duloxetine [Cymbalta] 60 MG capsule,delayed release(DR/EC) 60 mg PO DAILY RF: 0 tizanidine [Zanaflex] 4 MG capsule 16 mg PO TID RF: 0 bisacodyl [Dulcolax (bisacodyl)] 10 mg Suppository [address] Q48 RF: 0 methadone 10 mg tablet 30 mg PO TID Qty: 30 RF: 0 methadone 10 mg tablet 50 mg PO HS Qty: 10 RF: 0 oxycodone-acetaminophen [Percocet] 10-325 mg tablet 1 tab PO Q8H PRN (Reason: pain) Qty: 10 RF: 0 polyethylene glycol 3350 [Miralax] 17 gram powder in packet 17 g PO DAILYP PRN (Reason: Constipation) RF: 0 sennosides [senna] 8.6 mg tablet 8.6 mg PO HS RF: 0 Follow Up Plan Follow up with: Louis Wong MD [Primary Care Provider] - Patient Disposition: Hospice - Home Prognosis: Serious Overall status at discharge: patient is not back to baseline Discharge Orders: Discharge Order (Routine); Ordered 11/07/20 Ordered By: José Miguel Wright [facility] Deep Vein Thrombosis/Pulmonary Embolism Present on Admission: No
[2020-11-06] MEDS ORDERED: LACTOPEROXI/GLUC OXID/POT THIO 1 EACH GEL..EA. TOPICAL PRN (17:40)
[2020-11-06] MEDS ORDERED: ONDANSETRON 4 MG ODT TABLET SL PRN (17:40)
[2020-11-06] MEDS: morphine 4 MG/ML VIAL IV PRN ×3 (17:53→23:27)
[2020-11-06] MEDS: LORazepam 2 MG/ML VIAL IV PRN ×3 (18:09→23:41)
[2020-11-07] MEDS: morphine 4 MG/ML VIAL IV PRN ×9 (01:14→12:41)
[2020-11-07] MEDS: LORazepam 2 MG/ML VIAL IV PRN ×9 (01:15→12:40)
[2020-11-07] MEDS: 0.9 % SODIUM CHLORIDE 10 ML SYRINGE IV SCH (05:41)
[2020-11-07] MEDS: HYDROmorphone 1 MG/ML SYRINGE IV PRN ×3 (08:52→13:26)
[2020-11-07] MEDS ORDERED: BISACODYL 10 MG SUPP.RECT PR SCH (09:00)
[2020-11-07] MEDS: DOCUSATE SODIUM 100 MG CAPSULE PO SCH (09:01)
== END 2020-11-07 13:40 | disposition hospice, home (50) | DRG 871 ==
LOC: ED 11:05 → ICU 16:35 → MEDSUR 11-06 21:45
PROVIDERS: ADMIT Internal Medicine; ATTEND Internal Medicine